=== PATIENT | female | born 1975 | race Caucasian/White ===

== ENCOUNTER 2021-05-08 08:49 | Emergency (ER) | payer MEDICAID, SELFPAY ==
[2021-05-08] VITALS (9 sets, daily range): BP systolic 93–155; BP diastolic 68–90; PULSE 58–74; RESP 12–18; TEMP 36.7; O2SAT 98–100; BMI 22.0
--- NOTE | 2021-05-08 08:53 | NURSING ---
NO OLD EKGS
--- NOTE | 2021-05-08 09:06 | EKG12_ITS ---
Test Reason : CP Blood Pressure : / mmHG Vent. Rate : 073 BPM Atrial Rate : 073 BPM P-R Int : 196 ms QRS Dur : 088 ms QT Int : 372 ms P-R-T Axes : 062 037 041 degrees QTc Int : 409 ms Normal sinus rhythm Nonspecific ST abnormality Abnormal ECG Confirmed by FRANKIE BARRETO, ARTEMIO ([id number]), greeting card editor MARIAM BLACKMAN ([id number]) on 05/11/2021 2:13:25 PM Referred By: CHAPINCITO Confirmed By:ARTEMIO DAVID MD
--- NOTE | 2021-05-08 09:16 | ED.VIS.CHEST ---
HPI History of Present Illness Chief Complaint: Chest Pain Informant: patient Narrative Narrative: Persistent mid to left side chest pain since 3 AM this morning. Patient was already awake when symptoms occurred. States pain down her left arm to her fingers. Reports dyspnea. Denies nausea or diaphoresis. Tobacco history. Adopted therefore unclear on family history. Denies hypertension, diabetes, hypercholesterolemia. States had intermittent symptoms for 2 days until 3 AM this morning. No history of stress test or heart caths. No recent travel, surgeries, or immobilizations. No history of PE or DVT. Reports pain is combination of sharp pressure aches and is 10 out of 10. No medications taken at home. History of fibromyalgia, depression and anxiety. Prior Similar Symptoms: No PFSH PFSH Home Medications buspirone 5 mg PO DAILY 05/08/21 [History Last Taken Unknown] fluoxetine 40 mg PO DAILY 05/08/21 [History Last Taken Unknown] gabapentin 300 mg PO BID 05/08/21 [History Last Taken Unknown] levothyroxine 88 mcg PO DAILY 05/08/21 [History Last Taken Unknown] Allergy/AdvReac Type Severity Reaction Status Date / Time No Known Allergies Allergy Verified 05/08/21 09:44 Social History Smoking Status: Current every day smoker tobacco type: cigarettes ROS ROS ED Constitutional Constitutional ED: Denies chills, fever(s) or sweats Eyes Eyes: Denies change in vision ENT ENT ED: Denies dysphagia or sore throat Cardiovascular Cardiovascular: Reports chest pain; Denies leg edema, palpitations or racing heartbeat Respiratory/Chest Respiratory/Chest: Reports dyspnea; Denies cough or dyspnea on exertion Gastrointestinal Gastrointestinal: Denies abdominal pain, diarrhea, nausea or vomiting Genitourinary Genitourinary ED: Denies dysuria, hematuria or urinary frequency Musculoskeletal Musculoskeletal: Denies back pain, extremity pain or neck pain Integumentary Denies rash or wounds Neurologic Neurologic: Denies headache(s), paresthesias or weakness EXAM Physical Exam Const Vital Signs: 05/08/21 09:39 05/08/21 09:47 05/08/21 10:00 Temperature 98.1 F Temperature Source Temporal Pulse Rate 74 64 66 Respiratory Rate 18 18 12 Respiratory Effort Normal Non-Labored Blood Pressure 155/89 H 119/88 H 126/90 H Blood Pressure Mean 111 98 102 Pulse Ox 99 99 98 Oxygen Delivery Method Room Air Room Air Room Air 05/08/21 10:01 05/08/21 10:06 05/08/21 10:10 Temperature Temperature Source Pulse Rate 66 74 72 Respiratory Rate Respiratory Effort Blood Pressure 126/90 H 118/82 H 107/74 Blood Pressure Mean Pulse Ox Oxygen Delivery Method 05/08/21 11:11 05/08/21 12:13 05/08/21 12:48 Temperature Temperature Source Pulse Rate 61 58 L 60 Respiratory Rate 17 17 15 Respiratory Effort Blood Pressure 93/68 112/78 113/88 H Blood Pressure Mean 76 89 Pulse Ox 98 98 100 Oxygen Delivery Method Room Air Room Air Positive well nourished and well developed General Appearance ED: well developed and NAD HEENT Reports moist mucous membranes normocephalic and atraumatic Eyes PERRL, EOMs intact bilaterally and conjunctivae normal General Eye ED: Yes normal appearance of both eyes Neck no lymphadenopathy and supple General: Negative for tenderness Chest Wall Chest: Negative for tenderness Resp normal respiratory effort and normal air movement Effort and Inspection: symmetric chest movement; Negative for respiratory distress Cardio regular rate, regular rhythm and no murmurs Peripheral Pulses: pulses 2+ throughout GI normal to inspection, nondistended, normoactive bowel sounds and non-tender Palpation: Negative for guarding or rebound tenderness present Back/Spine no CVA tenderness and no thoracic nor lumbar tenderness Extremity normal to inspection General Extremety ED: Negative for edema or tenderness General Extremity: Negative for edema Neuro oriented x3 and no sensory deficits noted Sensorium / Orientation: awake and alert Skin no rashes or lesions noted and no wounds Heart Score History: Slightly/Non-Suspicious ECG: Normal Age: >45 - <65 years Risk Factors: 1 or 2 Risk Factors Troponin: </= Normal Limit Score: 2 MDM MDM MDM Narrative Medical decision making narrative: Patient presented with chest pain aspirin nitro was given. She did have some improvement of symptoms with nitro headache improved with Tylenol. Cardiac work-up negative including 2 high-sensitivity troponins. She had no PE risk factors. Chest x-ray negative. Symptom-free on reevaluation after second troponin. Her heart score is a 2. Discussed with patient with her history and symptoms will need further work-up as an outpatient. Strict return precautions. All questions were answered. Patient is being discharged under pandemic conditions under declared global, national and state disaster activation, with limited medical resources. Patient and community understands this. Results discussed in layman's terms to the patient satisfaction. All questions answered in layman's terms. Patient understands importance of follow-up care as directed. Patient has been instructed to return to the ED immediately if new symptoms, problems, or questions occur. We mutually agree with the plan of disposition. The patient understand that they may call or return with any questions or concerns at any time. Lab Data Attestation: I reviewed the patient's lab results. Labs: Laboratory Results - last 24 hr 05/08/21 05/08/21 05/08/21 08:58 08:58 11:30 WBC 6.0 RBC 4.43 Hgb 13.4 Hct 40.8 MCV 92.1 MCH 30.2 MCHC 32.8 RDW Std Deviation 45.2 H RDW Coeff of Manuel 13.2 Plt Count 263 MPV 9.7 Immature Gran % (Auto) 0.300 Neut % (Auto) 54.6 Lymph % (Auto) 34.2 [place] % (Auto) 7.7 Eos % (Auto) 2.0 Baso % (Auto) 1.2 H Absolute Neuts (auto) 3.3 Absolute Lymphs (auto) 2.05 Nucleated RBC % 0 Sodium 137 Potassium 3.9 Chloride 102 Carbon Dioxide 30.0 Anion Gap 5 BUN 10 Creatinine 0.74 Est GFR (MDRD) Af Amer 109 Est GFR (MDRD) Non-Af 90 BUN/Creatinine Ratio 13.6 Glucose 89 Calcium 9.2 Troponin I High Sens 4 5 Radiography Chest X-Ray - ED: 1 View, Read by ED Physician and Read by Radiologist Diagnostic Testing: Radiology Impression Chest X-Ray 05/08/21 09:30 IMPRESSION: Normal x-ray examination of the chest. Electronically Signed: Rick Staton MD at 9:58 EDT Tel , Service support , EKG Initial EKG: Attestation: I personally reviewed and interpreted this EKG as follows: Comments: Sinus rate of 73, no ST or T wave changes. Discharge Plan Triage Chief Complaint: Chest Pain ED Provider: Ephraim Geronimo Dx/Rx/DC Orders Clinical Impression: Acute chest pain Instructions: ED Chest Pain, Uncertain Cause Prescriptions: No Action fluoxetine 40 mg capsule 40 mg PO DAILY RF: 0 buspirone 5 mg tablet 5 mg PO DAILY RF: 0 levothyroxine 88 mcg tablet 88 mcg PO DAILY RF: 0 gabapentin 300 mg capsule 300 mg PO BID RF: 0 Stand Alone Forms: ED Work / School Excuse Referrals: POLLY TINEO [Other] - 3-5 Days Disposition Disposition: Home, Self Care Discharge Date/Time: 05/08/21 12:56
[2021-05-08 09:18] LABS: Absolute Lymphocyte Count 2.05 X10^3/uL (0.83-4.51); Absolute Neutrophil Count 3.3 X10^3/uL (2.0-7.7); Basophil# 0.07 X10^3/uL; Basophil% 1.2 % (0-1); Eosinophil# 0.12 X10^3/uL; Hematocrit 40.8 % (37-47); Hemoglobin 13.4 g/dL (12.0-15.0); Lymphocyte # 2.05 X10^3/ul (0.83-4.51); Lymphocyte % 34.2 % (19-41); Mean Corp Hgb Conc 32.8 g/dL (32-36); Mean Corpuscular Hgb 30.2 pg (27.0-32.0); Mean Corpuscular Volume 92.1 fL (81-99); Mean Platelet Vol. 9.7 fl (6.2-12.0); Monocyte# 0.46 X10^3/uL; Monocyte% 7.7 % (0-10); NRBC Flagged by Analyzer 0 % (0-5); Neutrophil # 3.28 X10^3/uL (2.7-7.7); Neutrophil % 54.6 % (47-70); Platelet Count 263 K/mm3 (150-450); RBC Distribution Width CV 13.2 % (11.6-14.6); RBC Distribution Width SD 45.2 fl (35.1-43.9); Red Blood Count 4.43 M/mm3 (4.2-5.4)
[2021-05-08 09:26] LABS: Anion Gap 5 (5-15); BUN 10 mg/dL (7-18); BUN/Creat Ratio 13.6 RATIO (10-20); Calcium,Total 9.2 mg/dL (8.5-10.1); Chloride 102 mmol/L (98-107); Creatinine, Serum 0.74 mg/dL (0.55-1.02); EST Glomerular Filtration Rate 90 mL/min (>60); Est Glom Filt Rate - Afr Amer 109 mL/min (>60); Glucose 89 mg/dL (74-106); Potassium 3.9 mmol/L (3.5-5.1); Sodium Level 137 mmol/L (136-145); Troponin-I HS 4 pg/mL (3.0-54.0)
--- NOTE | 2021-05-08 09:30 | RAD_ITS ---
STUDY: X-RAY CHEST REASON FOR EXAM: Female, 46 years old. chest pain TECHNIQUE: Single AP portable view of the chest. COMPARISON: None. FINDINGS: The lungs are clear and expanded. There is no demonstrated pleural abnormality. Normal size heart. Normal mediastinum and jose. Normal visualized pulmonary arteries. Normal visualized aortic arch and descending thoracic aorta. Normal visualized thoracic spine. Normal visualized ribs, clavicles, and shoulders. There is no demonstrated abnormality of the visualized soft tissue structures of the upper abdomen. RAD/Chest 1 View (Portable) IMPRESSION: Normal x-ray examination of the chest. Electronically Signed: Rick Staton MD at 9:58 EDT Tel , Service support ,
[2021-05-08] MEDS: Aspirin 81 MG TAB.CHEW 324 MG PO (09:35)
[2021-05-08] MEDS: Nitroglycerin SL (ED/IMG/CATH) 0.4 MG TABLET SL ×3 (10:01→10:10)
[2021-05-08] MEDS: Acetaminophen 500 MG Tablet 1000 MG PO (10:23)
[2021-05-08 12:08] LABS: Troponin-I HS 5 pg/mL (3.0-54.0)
== END 2021-05-08 12:56 | disposition home or self-care (01) ==
PROVIDERS: Emergency Provider Emergency Medicine
DX: R07.89 Other chest pain (principal); R06.00 Dyspnea, unspecified; R51.9 Headache, unspecified; F32.9 Major depressive disorder, single episode, unspecified; F41.9 Anxiety disorder, unspecified; M79.7 Fibromyalgia; Z79.899 Other long term (current) drug therapy; F17.210 Nicotine dependence, cigarettes, uncomplicated
CPT/HCPCS: 36415; 71045; 80048; 84484; 85025; 93005; 99284; J7030; A4216

== ENCOUNTER 2022-02-25 09:19 | Emergency (ER) | payer MEDICAID, SELFPAY ==
[2022-02-25] VITALS (8 sets, daily range): BP systolic 99–142; BP diastolic 77–93; PULSE 65–92; RESP 12–16; TEMP 35.9; O2SAT 98–99; BMI 26.4
--- NOTE | 2022-02-25 09:32 | EKG12_ITS ---
Test Reason : CP Blood Pressure : / mmHG Vent. Rate : 070 BPM Atrial Rate : 070 BPM P-R Int : 180 ms QRS Dur : 088 ms QT Int : 376 ms P-R-T Axes : 063 048 046 degrees QTc Int : 406 ms Normal sinus rhythm Normal ECG Confirmed by FRANKIE BARRETO, ARTEMIO ([id number]), video effects editor MARIAM BLACKMAN ([id number]) on 03/02/2022 10:20:38 AM Referred By: KIMMY Confirmed By:ARTEMIO DAVID MD
--- NOTE | 2022-02-25 09:38 | ED.VIS.CHEST ---
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 In that amount of time for the last several days, when she is at work and under stress, she has been getting symptoms of angina. She is last night she had an episode that lasted longer, and this morning she woke up with it and it has not gone away. She woke up at 5 AM with the discomfort, she went back to bed, she woke up at 8 AM and still had the discomfort, she presents now it is about 930 and she is still having the discomfort. She is a smoker. She has never had this before. She takes medication for anxiety, depression, and fibromyalgia. Prior Similar Symptoms: No Recent Illness/Hospitalization: No CVD Risk Factors: Positive for Family History 1' </=55 (None known, she was adopted) and Smoking; Negative for Hypertension, Diabetes or Hypercholesterolemia PE Risk Factors: Negative for Recent Travel/Surgery, Recent Immobilization, Prior DVT or PE, Cancer or OCP + Smoking + >/=35 PFSH PFSH Medical History (Updated 02/25/22 @ 12:[address] Nemesio Rush MD) Anxiety Depression Fibromyalgia Hypothyroid Home Medications buspirone 5 mg tablet 5 mg PO DAILY 05/08/21 [History Last Taken Unknown] fluoxetine 40 mg capsule 40 mg PO DAILY 05/08/21 [History Last Taken Unknown] gabapentin 300 mg capsule 300 mg PO TID 05/08/21 [History Last Taken Unknown] levothyroxine 88 mcg tablet 125 mcg PO DAILY 05/08/21 [History Last Taken Unknown] Allergy/AdvReac Type Severity Reaction Status Date / Time No Known Allergies Allergy Verified 02/25/22 09:20 Family History adopted adopted Social History Smoking Status: Current every day smoker tobacco type: cigarettes ROS ROS ED Constitutional Constitutional ED: Reports sweats; Denies chills or fever(s) Eyes Eyes: Denies change in vision or diplopia ENT ENT ED: Denies rhinorrhea or sore throat Cardiovascular Cardiovascular: Reports chest pain; Denies palpitations Respiratory/Chest Respiratory/Chest: Reports dyspnea; Denies cough Gastrointestinal Gastrointestinal: Reports nausea; Denies abdominal pain, diarrhea or vomiting Genitourinary Genitourinary ED: Denies dysuria or hematuria Musculoskeletal Musculoskeletal: Denies back pain or neck pain Integumentary Denies abscess or rash Neurologic Neurologic: Denies headache(s), paresthesias or weakness Psychiatric Psychiatric: Denies anxiety or suicidal thoughts EXAM Physical Exam Const Vital Signs: 02/25/22 09:20 02/25/22 09:25 02/25/22 09:42 Temperature 96.7 F L Temperature Source Temporal Pulse Rate 92 Respiratory Rate 13 Respiratory Effort Normal Non-Labored Blood Pressure 142/89 H Blood Pressure Mean 106 Pulse Ox 99 98 Oxygen Delivery Method Room Air Room Air 02/25/22 09:49 02/25/22 10:09 02/25/22 10:32 Temperature Temperature Source Pulse Rate 81 91 65 Respiratory Rate Respiratory Effort Blood Pressure 108/93 H 105/81 H 99/77 Blood Pressure Mean Pulse Ox Oxygen Delivery Method 02/25/22 11:32 02/25/22 11:52 Temperature Temperature Source Pulse Rate 66 78 Respiratory Rate 12 16 Respiratory Effort Blood Pressure 108/83 H 99/80 Blood Pressure Mean 91 86 Pulse Ox 98 98 Oxygen Delivery Method Room Air Room Air Positive well nourished and well developed General Appearance ED: well developed and NAD HEENT Reports moist mucous membranes normocephalic and atraumatic Eyes PERRL and EOMs intact bilaterally Neck full ROM and supple Chest Wall inspection of chest normal and palpation of chest normal Resp normal respiratory effort and clear to auscultation bilaterally Cardio regular rate, regular rhythm and no murmurs Rate: Negative for bradycardia or tachycardic GI non-distended GI Narrative: Mildly tender epigastrium only, no guarding or rebound. Otherwise benign abdomen. Auscultation: normoactive bowel sounds Palpation: soft Back/Spine no CVA tenderness General Back: other FROM Extremity normal to inspection General Extremety ED: Negative for edema, pulses abnormal or tenderness General Extremity: Negative for edema or pulses abnormal Neuro oriented x3, CN's II-XII intact bilaterally and no sensory deficits noted Sensorium / Orientation: awake and alert Motor Exam: strength 5/5 throughout Psych mental status grossly normal Mood & Affect: anxious Skin no rashes or lesions noted and no wounds Skin Narrative: Not diaphoretic Heart Score History: Highly Suspicious ECG: Normal Age: >45 - <65 years Risk Factors: 1 or 2 Risk Factors Troponin: </= Normal Limit Score: 4 MDM MDM MDM Narrative Medical decision making narrative: Patient's work-up is negative with a normal EKG, initial troponin negative, and the second troponin that we did actually went down. I think this is good evidence against unstable angina here, esophageal and psychogenic etiology certainly are possible, the patient thinks it is psychogenic, I will discharge her home with close outpatient follow-up, advised to try to decrease her smoking is much as possible. Lab Data Attestation: I reviewed the patient's lab results. Labs: Laboratory Results - last 24 hr 02/25/22 02/25/22 02/25/22 09:25 09:25 09:25 WBC 5.6 RBC 4.60 Hgb 13.9 Hct 42.3 MCV 92.0 MCH 30.2 MCHC 32.9 RDW Std Deviation 46.1 H RDW Coeff of Manuel 13.5 Plt Count 236 MPV 10.1 Immature Gran % (Auto) 0.400 Neut % (Auto) 45.3 L Lymph % (Auto) 39.6 [place] % (Auto) 11.4 H Eos % (Auto) 2.1 Baso % (Auto) 1.2 H Absolute Neuts (auto) 2.6 Absolute Lymphs (auto) 2.23 Nucleated RBC % 0 APTT 28.0 Sodium 137 Potassium 4.0 Chloride 103 Carbon Dioxide 29.0 Anion Gap 5 BUN 9 Creatinine 0.86 Estim Creat Clear Calc 69.08 Est GFR (MDRD) Af Amer 90 Est GFR (MDRD) Non-Af 74 BUN/Creatinine Ratio 10.4 Glucose 104 Calcium 9.5 Troponin I High Sens 4 02/25/22 11:50 WBC RBC Hgb Hct MCV MCH MCHC RDW Std Deviation RDW Coeff of Manuel Plt Count MPV Immature Gran % (Auto) Neut % (Auto) Lymph % (Auto) [place] % (Auto) Eos % (Auto) Baso % (Auto) Absolute Neuts (auto) Absolute Lymphs (auto) Nucleated RBC % APTT Sodium Potassium Chloride Carbon Dioxide Anion Gap BUN Creatinine Estim Creat Clear Calc Est GFR (MDRD) Af Amer Est GFR (MDRD) Non-Af BUN/Creatinine Ratio Glucose Calcium Troponin I High Sens 3 Radiography Chest X-Ray - ED: 1 View, Read by ED Physician and No Acute Disease Diagnostic Testing: Clinical Impression(s) from Imaging Studies Chest X-Ray 02/25/22 09:55 IMPRESSION: Normal x-ray examination of the chest. Electronically Signed: Joaquín Bernstein MD at 10:37 EDT , Rhythm Strip Rhythm Strip: Sinus Rhythm Rate: 70 Ectopy: None EKG Initial EKG: Attestation: I personally reviewed and interpreted this EKG as follows: Interpretation: Sinus Rhythm and No Acute Injury Pattern Comments: Normal EKG. Discharge Plan Triage Chief Complaint: Chest Pain ED Provider: Nemesio Rush Dx/Rx/DC Orders Clinical Impression: Chest pain, unspecified, Encounter for smoking cessation counseling, Anxiety Instructions: ED Chest Pain, Uncertain Cause Prescriptions: No Action fluoxetine 40 mg capsule 40 mg PO DAILY buspirone 5 mg tablet 5 mg PO DAILY levothyroxine 88 mcg tablet 125 mcg PO DAILY Label Comments: TAKE 1 TABLET BY MOUTH ONCE DAILY IN THE MORNING gabapentin 300 mg capsule 300 mg PO TID Primary Care Provider: POLLY TINEO Referrals: POLLY TINEO [Other] - 3-5 Days if not improving Activity Restrictions/Additional Instructions: Decrease your smoking as much as possible. Disposition Disposition: Home, Self Care
[2022-02-25 09:43] LABS: Absolute Lymphocyte Count 2.23 X10^3/uL (0.83-4.51); Absolute Neutrophil Count 2.6 X10^3/uL (2.0-7.7); Basophil# 0.07 X10^3/uL; Basophil% 1.2 % (0-1); Eosinophil# 0.12 X10^3/uL; Eosinophils% 2.1 % (0-5); Hematocrit 42.3 % (37-47); Hemoglobin 13.9 g/dL (12.0-15.0); Lymphocyte # 2.23 X10^3/ul (0.83-4.51); Lymphocyte % 39.6 % (19-41); Mean Corp Hgb Conc 32.9 g/dL (32-36); Mean Corpuscular Hgb 30.2 pg (27.0-32.0); Mean Platelet Vol. 10.1 fl (6.2-12.0); Monocyte# 0.64 X10^3/uL; Monocyte% 11.4 % (0-10); NRBC Flagged by Analyzer 0 % (0-5); Neutrophil # 2.55 X10^3/uL (2.7-7.7); Neutrophil % 45.3 % (47-70); Platelet Count 236 K/mm3 (150-450); RBC Distribution Width CV 13.5 % (11.6-14.6); RBC Distribution Width SD 46.1 fl (35.1-43.9); White Blood Count 5.6 K/mm3 (4.4-11.0)
[2022-02-25] MEDS: Ondansetron 4 MG/2 ML Vial IV (09:47)
[2022-02-25] MEDS: Aspirin 81 MG TAB.CHEW 324 MG PO (09:47)
[2022-02-25] MEDS: Nitroglycerin SL (ED/IMG/CATH) 0.4 MG TABLET SL ×3 (09:49→10:32)
--- NOTE | 2022-02-25 09:55 | RAD_ITS ---
STUDY: X-RAY CHEST REASON FOR EXAM: Female, 46 years old. Chest pain TECHNIQUE: Single AP portable view of the chest. COMPARISON: Comparison is made with prior study dated 05/08/2021. FINDINGS: EKG electrodes are seen. The lungs are clear and expanded. There is no demonstrated pleural abnormality. Normal size heart. Normal mediastinum and jose. Normal visualized pulmonary arteries. Normal visualized aortic arch and descending thoracic aorta. Normal visualized thoracic spine. Normal visualized ribs, clavicles, and shoulders. There is no demonstrated abnormality of the visualized soft tissue structures of the upper abdomen. RAD/Chest 1 View (Portable) IMPRESSION: Normal x-ray examination of the chest. Electronically Signed: Joaquín Bernstein MD at 10:37 EDT ,
[2022-02-25 10:12] LABS: Anion Gap 5 (5-15); BUN 9 mg/dL (7-18); BUN/Creat Ratio 10.4 RATIO (10-20); Calcium,Total 9.5 mg/dL (8.5-10.1); Chloride 103 mmol/L (98-107); Creatinine, Serum 0.86 mg/dL (0.55-1.02); EST Glomerular Filtration Rate 74 mL/min (>60); Est Glom Filt Rate - Afr Amer 90 mL/min (>60); Estimated Creatinine Clearance 69.08 ml/min; Glucose 104 mg/dL (74-106); Sodium Level 137 mmol/L (136-145); Troponin-I HS (w/2H Reflex) 4 pg/mL (3.0-54.0)
[2022-02-25 11:40] LABS: Reflex Troponin-HS? (from REC) Y
[2022-02-25 12:14] LABS: Troponin-I HS 3 pg/mL (3.0-54.0)
== END 2022-02-25 12:50 | disposition home or self-care (01) ==
PROVIDERS: Emergency Provider Emergency Medicine; Visit Provider Emergency Medicine
DX: R07.89 Other chest pain (principal); F41.9 Anxiety disorder, unspecified; F32.A Depression, unspecified; E03.9 Hypothyroidism, unspecified; M79.7 Fibromyalgia; Z79.899 Other long term (current) drug therapy; F17.210 Nicotine dependence, cigarettes, uncomplicated
CPT/HCPCS: 36415; 71045; 80048; 84484; 85025; 85730; 93005; 96374; 99285; J2405

== ENCOUNTER 2022-04-02 22:33 | Inpatient (IN) | payer MEDICAID, SELFPAY ==
[2022-04-02 22:34] VITALS: BP 125/100; PULSE 86; RESP 16; TEMP 36.8; O2SAT 98; BMI 26.4
--- NOTE | 2022-04-02 22:40 | EKG12_ITS ---
Test Reason : CP Blood Pressure : / mmHG Vent. Rate : 086 BPM Atrial Rate : 086 BPM P-R Int : 172 ms QRS Dur : 094 ms QT Int : 350 ms P-R-T Axes : 066 054 065 degrees QTc Int : 418 ms Normal sinus rhythm Nonspecific ST abnormality Abnormal ECG Confirmed by KASSIDY BARRETO, SOUTH ([id number]), rewrite editor MARIAM BLACKMAN ([id number]) on 04/05/2022 1:11:35 PM Referred By: OSWALDO Confirmed By:SOUTH YI MD
[2022-04-02] MEDS: Ketorolac 30 MG/ML Syringe IV (23:06)
[2022-04-02] MEDS: Orphenadrine 60 MG/2 ML Ampul IV (23:06)
[2022-04-02 23:16] LABS: Absolute Lymphocyte Count 3.36 X10^3/uL (0.83-4.51); Absolute Neutrophil Count 3.4 X10^3/uL (2.0-7.7); Basophil# 0.09 X10^3/uL; Basophil% 1.2 % (0-1); Eosinophil# 0.13 X10^3/uL; Eosinophils% 1.7 % (0-5); Hematocrit 40.5 % (37-47); Hemoglobin 13.7 g/dL (12.0-15.0); Lymphocyte # 3.36 X10^3/ul (0.83-4.51); Mean Corp Hgb Conc 33.8 g/dL (32-36); Mean Corpuscular Hgb 30.7 pg (27.0-32.0); Mean Corpuscular Volume 90.8 fL (81-99); Mean Platelet Vol. 10.1 fl (6.2-12.0); Monocyte# 0.58 X10^3/uL; Monocyte% 7.6 % (0-10); NRBC Flagged by Analyzer 0 % (0-5); Neutrophil % 44.5 % (47-70); Platelet Count 248 K/mm3 (150-450); RBC Distribution Width CV 12.6 % (11.6-14.6); RBC Distribution Width SD 41.4 fl (35.1-43.9); Red Blood Count 4.46 M/mm3 (4.2-5.4); White Blood Count 7.6 K/mm3 (4.4-11.0)
[2022-04-02 23:19] LABS: D-Dimer Quantitative (DVT/PE) 0.51 FEU/ug/m (0.27-0.49)
--- NOTE | 2022-04-02 23:24 | RAD_ITS ---
STUDY: X-RAY CHEST REASON FOR EXAM: Female, 46 years old. chest pain TECHNIQUE: PA and lateral views of the chest. COMPARISON: 02/25/2022 FINDINGS: The lungs are clear and expanded. There is no demonstrated pleural abnormality. Normal size heart. Normal mediastinum and jose. Normal visualized pulmonary arteries. Normal visualized aortic arch and descending thoracic aorta. Normal visualized thoracic spine. Normal visualized ribs, clavicles, and shoulders. There is no demonstrated abnormality of the visualized soft tissue structures of the upper abdomen. RAD/Chest PA and Lateral IMPRESSION: Normal x-ray examination of the chest. Electronically Signed: Rick Staton MD at 23:30 EDT ,
[2022-04-02 23:27] LABS: Anion Gap 5 (5-15); BUN 9 mg/dL (7-18); BUN/Creat Ratio 10.5 RATIO (10-20); Calcium,Total 9.5 mg/dL (8.5-10.1); Chloride 105 mmol/L (98-107); Creatinine, Serum 0.86 mg/dL (0.55-1.02); EST Glomerular Filtration Rate 75 mL/min (>60); Est Glom Filt Rate - Afr Amer 91 mL/min (>60); Estimated Creatinine Clearance 69.08 ml/min; Glucose 100 mg/dL (74-106); Magnesium 1.9 mg/dL (1.6-2.6); Potassium 3.3 mmol/L (3.5-5.1); Sodium Level 139 mmol/L (136-145); Troponin-I HS 9 pg/mL (3.0-54.0)
--- NOTE | 2022-04-02 23:31 | CT_ITS ---
EXAM: CT ANGIOGRAPHY CHEST WITHOUT AND WITH INTRAVENOUS CONTRAST CLINICAL INDICATION: elevated d-dimer with chest pain TECHNIQUE: Helically acquired angiography images were obtained of the chest without and with intravenous contrast. This CT exam was performed using one or more of the following dose reduction techniques: automated exposure control, adjustment of the mA and/or kV according to patient size, and/or use of iterative reconstruction technique. This report was created using [employer] report generation technology. MIP reconstructed images were created and reviewed. CONTRAST: 100 cc of Isovue-370 IV. RADIATION DOSE: CTDIvol = 6.71 mGy, DLP = 214.67 mGy-cm. COMPARISON: None. FINDINGS: PULMONARY ARTERIES: Unremarkable. Normal in caliber. No evidence of pulmonary embolism. AORTA: Unremarkable. Normal in caliber. No evidence of dissection. GREAT VESSELS OF AORTIC ARCH: Unremarkable. Normal in caliber. No evidence of dissection. LUNGS AND PLEURAL SPACES: Mild paraseptal emphysematous changes predominantly in the upper lobes. No mass. No pleural effusion or thickening. No pneumothorax. HEART: Unremarkable. Heart size is normal. No pericardial effusion. No signs of right heart strain, ratio of right ventricle to left ventricle measures less than 1. MEDIASTINUM: Unremarkable. No mediastinal or hilar adenopathy. Esophagus is unremarkable. No hiatal hernia. THYROID: Unremarkable. No thyroid lesions. BONES/JOINTS: Unremarkable. No suspicious lytic or blastic abnormality. CT/CTA Chest W/WO Contrast IMPRESSION: 1. Mild paraseptal emphysematous changes predominantly in the upper lobes. 2. No pulmonary embolism or dissection. Electronically Signed: Prudencio Almazan MD at 0:33 EDT ,
[2022-04-02] MEDS: 0.9% Normal Saline 1,000 ML 999 ML IV (23:55)
[2022-04-02 23:56] VITALS: BP 123/76; PULSE 57; RESP 16; O2SAT 100
[2022-04-03] VITALS (13 sets, daily range): BP systolic 124–144; BP diastolic 73–96; PULSE 55–85; RESP 14–18; TEMP 36.4–36.8; O2SAT 96–100; BMI 26.4
--- NOTE | 2022-04-03 00:43 | EX.ED.DYSGE1 ---
HPI History of Present Illness Chief Complaint: Chest Pain Narrative Narrative: Patient is a 46-year-old female with past medical history of anxiety fibromyalgia hypothyroidism and smoking. She states she was at work this evening doing normal physical activity when she got mid to right sternal chest discomfort which radiated towards her right arm/neck. She states that there was no associated nausea vomiting diaphoresis or shortness of breath. She denies any previous cardiac issues but states she was concerned for a heart attack based on her constellation of symptoms and therefore EMS was called to bring her in for evaluation. Patient states she was given nitro and aspirin by EMS with no symptom improvement. She also denies any recent surgery travel or history of DVT/PE. [facility] Medical History Anxiety Depression Fibromyalgia Hypothyroid Home Medications buspirone 5 mg tablet 7.5 mg PO DAILY 05/08/21 [History Last Taken Unknown] fluoxetine 40 mg capsule 40 mg PO DAILY 05/08/21 [History Last Taken Unknown] gabapentin 300 mg capsule 300 mg PO TID 05/08/21 [History Last Taken Unknown] levothyroxine 88 mcg tablet 125 mcg PO DAILY 05/08/21 [History Last Taken Unknown] Allergy/AdvReac Type Severity Reaction Status Date / Time No Known Allergies Allergy Verified 04/02/22 22:39 Social History Smoking Status: Current every day smoker tobacco type: cigarettes ROS ROS ED Constitutional Constitutional ED: Denies chills or fever(s) ENT ENT ED: Denies sore throat Cardiovascular Cardiovascular: Reports chest pain; Denies palpitations or racing heartbeat Respiratory/Chest Respiratory/Chest: Denies cough or dyspnea Gastrointestinal Gastrointestinal: Denies abdominal pain, diarrhea, nausea or vomiting Genitourinary Genitourinary ED: Denies dysuria Musculoskeletal Musculoskeletal: Denies myalgias Integumentary Denies rash Neurologic Neurologic: Denies headache(s) Hematologic/Lymphatic Hematologic/Lymphatic: Denies easy bleeding or easy bruising EXAM Physical Exam Const Vital Signs: 04/02/22 22:34 04/02/22 22:40 04/02/22 23:56 Temperature 98.2 F Temperature Source Oral Pulse Rate 86 57 L Respiratory Rate 16 16 Respiratory Effort Normal Respiratory Pattern Normal Blood Pressure 125/100 H 123/76 H Blood Pressure Mean 108 91 Pulse Ox 98 100 Oxygen Delivery Method Room Air Room Air 04/03/22 00:38 Temperature Temperature Source Pulse Rate 62 Respiratory Rate 14 Respiratory Effort Respiratory Pattern Blood Pressure 125/79 H Blood Pressure Mean 94 Pulse Ox 98 Oxygen Delivery Method Room Air Positive well nourished and well developed General Appearance ED: well developed HEENT Reports moist mucous membranes HEENT Narrative: No signs of infection in the posterior pharynx Eyes PERRL and EOMs intact bilaterally Neck supple Neck Narrative: Patient has reproducible pain on palpation along the right sternocleidomastoid muscle that worsens with side bending and rotation. No crepitance noted Resp normal respiratory effort and clear to auscultation bilaterally Cardio regular rate and regular rhythm Rate: other Other Details: Radial pulses are plus 2 out of 4 bilaterally are equal and symmetric Carotid pulses are also equal GI normal to inspection, nondistended, normoactive bowel sounds, non-tender and non-distended GI Narrative: No voluntary guarding or rigidity. No pulsatile mass or fluid wave Auscultation: normoactive bowel sounds Palpation: soft Extremity normal to inspection Extremity Narrative: No asymmetric edema no pitting edema negative Homans' sign bilaterally Neuro oriented x3 and CN's II-XII intact bilaterally Sensorium / Orientation: alert Psych mental status grossly normal Skin no rashes or lesions noted MDM MDM MDM Narrative Medical decision making narrative: Patient presented to the ER in no acute distress with stable vitals. She reported midsternal chest pain radiating towards the right arm/neck but there was no secondary symptoms such as nausea vomiting diaphoresis or shortness of breath. She also reported no symptom improvement with nitro or aspirin. Risk factors for cardiac disease are low mainly being that she is a smoker. However with her chest pain a cardiac work-up was obtained. The patient's D-dimer was just slightly elevated and therefore CTA was obtained which revealed no obvious pulmonary embolus dissection or pneumonia. She also had reproducible pain on exam indicating this could be musculoskeletal especially with her history of fibromyalgia so she was given Toradol and Norflex. Her initial troponin was normal at 9 but the 2-hour delta has increased by approximately 40 points to a value of 48. The patient was reevaluated at this time and remains hemodynamically stable and states she has had resolution of her chest pain. Despite stable vitals and spontaneous resolution of symptoms I cannot ignore a 40 point elevation to her troponin and therefore patient will be admitted to the hospital for further cardiac work-up Lab Data Attestation: I reviewed the patient's lab results. Labs: Laboratory Results - last 24 hr 04/02/22 04/02/22 04/02/22 22:36 22:36 22:36 WBC 7.6 RBC 4.46 Hgb 13.7 Hct 40.5 MCV 90.8 MCH 30.7 MCHC 33.8 RDW Std Deviation 41.4 RDW Coeff of Manuel 12.6 Plt Count 248 MPV 10.1 Immature Gran % (Auto) 1.000 H Neut % (Auto) 44.5 L Lymph % (Auto) 44.0 H Humphreys % (Auto) 7.6 Eos % (Auto) 1.7 Baso % (Auto) 1.2 H Absolute Neuts (auto) 3.4 Absolute Lymphs (auto) 3.36 Nucleated RBC % 0 D-Dimer Quant (PE/DVT) 0.51 H* Sodium 139 Potassium 3.3 L Chloride 105 Carbon Dioxide 29.0 Anion Gap 5 BUN 9 Creatinine 0.86 Estim Creat Clear Calc 69.08 Est GFR (MDRD) Af Amer 91 Est GFR (MDRD) Non-Af 75 BUN/Creatinine Ratio 10.5 Glucose 100 Calcium 9.5 Magnesium 1.9 Troponin I High Sens 9 04/03/22 00:40 WBC RBC Hgb Hct MCV MCH MCHC RDW Std Deviation RDW Coeff of Manuel Plt Count MPV Immature Gran % (Auto) Neut % (Auto) Lymph % (Auto) Humphreys % (Auto) Eos % (Auto) Baso % (Auto) Absolute Neuts (auto) Absolute Lymphs (auto) Nucleated RBC % D-Dimer Quant (PE/DVT) Sodium Potassium Chloride Carbon Dioxide Anion Gap BUN Creatinine Estim Creat Clear Calc Est GFR (MDRD) Af Amer Est GFR (MDRD) Non-Af BUN/Creatinine Ratio Glucose Calcium Magnesium Troponin I High Sens 48 Radiography Diagnostic Testing: Clinical Impression(s) from Imaging Studies Chest X-Ray 04/02/22 23:24 IMPRESSION: Normal x-ray examination of the chest. Electronically Signed: Rick Staton MD at 23:30 EDT , Chest CTA 04/02/22 23:31 IMPRESSION: 1. Mild paraseptal emphysematous changes predominantly in the upper lobes. 2. No pulmonary embolism or dissection. Electronically Signed: Prudencio Almazan MD at 0:33 EDT , 2 view chest x-ray as interpreted by the emergency medicine physician reveals emphysematous changes without acute infiltrate pneumothorax or pleural effusion Discharge Plan Triage Chief Complaint: Chest Pain ED Provider: Maxime Man Dx/Rx/DC Orders Clinical Impression: Nonspecific chest pain, Elevated troponin, Tobacco abuse Prescriptions: No Action fluoxetine 40 mg capsule 40 mg PO DAILY buspirone 5 mg tablet 7.5 mg PO DAILY levothyroxine 88 mcg tablet 125 mcg PO DAILY Label Comments: TAKE 1 TABLET BY MOUTH ONCE DAILY IN THE MORNING gabapentin 300 mg capsule 300 mg PO TID Primary Care Provider: OPLLY TINEO Referrals: POLLY TINEO [Other] Disposition Disposition: Acute Care Hospital [facility]
[2022-04-03 01:04] LABS: Troponin-I HS 48 pg/mL (3.0-54.0)
--- NOTE | 2022-04-03 01:22 | HP.PCM.HOS_ITS ---
[facility] - General General Date of Admission: 04/03/22 Date of Service: 04/03/22 Chief Complaint: Chest pain- 1 day HPI Narrative SUSHIL LIU, is a 46 F who presents with chest pain. Patient has past medical history of hypothyroidism, anxiety/depression/fibromyalgia who was at work when she experienced substernal pressure-like chest pain that radiated across her chest to the right side to the neck and the jaw. This persisted until the EMS showed up and she was given aspirin and nitro. It was associated with some diaphoresis but denied dizziness or palpitations or shortness of breath. She has never had this kind of pain before. At the time of being seen, she denied any chest pressure but admits to some numbness across the right side of her chest. She is a smoker and smokes less than 1 pack a day. Vitals in ED showed blood pressure 125/100, heart rate 86, respiratory 16, temperature 98.2 F, SPO2 98% on room air. CBCD unremarkable. D-dimer 0.51, BMP remarkable for potassium 3.3, magnesium 1.9. Troponin was 9, and later on 48 Admitting chest x-ray was unremarkable. Mild paraseptal emphysematous changes predominantly in the upper lobes. [facility] Medical History Anxiety Depression Fibromyalgia Hypothyroid Home Medications buspirone 5 mg tablet 7.5 mg PO DAILY 05/08/21 [History Last Taken Unknown] fluoxetine 40 mg capsule 40 mg PO DAILY 05/08/21 [History Last Taken Unknown] gabapentin 300 mg capsule 300 mg PO TID 05/08/21 [History Last Taken Unknown] levothyroxine 88 mcg tablet 125 mcg PO DAILY 05/08/21 [History Last Taken Unknown] Allergy/AdvReac Type Severity Reaction Status Date / Time No Known Allergies Allergy Verified 04/02/22 22:39 Family History adopted adopted Social History (Updated 04/03/22 @ 01:[address] Barbie Stewart MD) household members: family Smoking Status: Current every day smoker tobacco type: cigarettes alcohol intake: never substance use type: does not use ROS ROS Narrative Constitutional: Denies: Anorexia, Chills, Fever, Night Sweats, Weight Change Eyes: Denies: Blurred vision, Cataracts, Conjunctivae Inflammation, Pain, Redness, Vision Change HEENT: Denies: Difficulty Hearing, Difficulty Swallowing, Head Aches, Hearing Changes, Sinus Congestion, Sinus Drainage Cardiovascular: See HPI Respiratory: Denies: Cough, Shortness of breath at rest, Sputum production Gastrointestinal: Denies: Abdominal Pain, Nausea, Vomiting Genitourinary: Denies: Dysuria Musculoskeletal: Denies: Joint Pain, Joint stiffness, Joint swelling, Joint Tenderness Skin: Denies: Rash, Wounds Neurological: Denies: Numbness, Tingling, Focal weakness Vital Signs Vital Signs Vital Signs: 04/02/22 22:34 04/02/22 22:40 04/02/22 23:56 Temperature 98.2 F Temperature Source Oral Pulse Rate 86 57 L Respiratory Rate 16 16 Respiratory Effort Normal Respiratory Pattern Normal Blood Pressure 125/100 H 123/76 H Blood Pressure Mean 108 91 Pulse Ox 98 100 Oxygen Delivery Method Room Air Room Air 04/03/22 00:38 Temperature Temperature Source Pulse Rate 62 Respiratory Rate 14 Respiratory Effort Respiratory Pattern Blood Pressure 125/79 H Blood Pressure Mean 94 Pulse Ox 98 Oxygen Delivery Method Room Air Weight Weight: 69.8 kg Body Mass Index (BMI) 26.4 Physical Exam Narrative Physical exam: General: Alert, Oriented x3, Cooperative, No apparent distress HEENT: Atraumatic Oral: Moist Mucosa Neck: Supple Lungs: Diminished to auscultation, scattered wheezes Cardiovascular: HS I+II, regular, no murmurs Abdomen: Bowel Sounds Present, Soft, Non Tender Extremities: No edema Skin: No rashes, No breakdown Neurological: Grossly intact Psych/Mental Status: Appropriate Results Lab / Micro Data Result Diagrams: 04/02/22 22:36 04/02/22 22:36 Labs: Laboratory Results - last 24 hr 04/02/22 22:36: D-Dimer Quant (PE/DVT) 0.51 H* 04/02/22 22:36: Sodium 139, Potassium 3.3 L, Chloride 105, Carbon Dioxide 29.0, Anion Gap 5, BUN 9, Creatinine 0.86, Estim Creat Clear Calc 69.08, Est GFR (MDRD) Af Amer 91, Est GFR (MDRD) Non-Af 75, BUN/Creatinine Ratio 10.5, Glucose 100, Calcium 9.5, Magnesium 1.9, Troponin I High Sens 9 04/02/22 22:36: WBC 7.6, RBC 4.46, Hgb 13.7, Hct 40.5, MCV 90.8, MCH 30.7, MCHC 33.8, RDW Std Deviation 41.4, RDW Coeff of Manuel 12.6, Plt Count 248, MPV 10.1, Immature Gran % (Auto) 1.000 H, Neut % (Auto) 44.5 L, Lymph % (Auto) 44.0 H, [place] % (Auto) 7.6, Eos % (Auto) 1.7, Baso % (Auto) 1.2 H, Absolute Neuts (auto) 3.4, Absolute Lymphs (auto) 3.36, Nucleated RBC % 0 04/03/22 00:40: Troponin I High Sens 48 Radiology Impression Chest X-Ray 04/02/22 23:24 IMPRESSION: Normal x-ray examination of the chest. Electronically Signed: Rick Staton MD at 23:30 EDT , Chest CTA 04/02/22 23:31 IMPRESSION: 1. Mild paraseptal emphysematous changes predominantly in the upper lobes. 2. No pulmonary embolism or dissection. Electronically Signed: Prudencio Almazan MD at 0:33 EDT , Assessment & Plan Assessment/Plan (1) Acute chest pain: (2) Hypokalemia: (3) Hypomagnesemia: PLAN: Plan 1. Acute chest pain, atypical, in a chronic smoker EKG shows normal sinus rhythm, no acute ST changes Initial troponin was 9, second troponin 48 Admit to PCU, monitor on telemetry, trend troponins, nuclear stress test 2. Hypokalemia/hypomagnesemia, replaced, recheck in a.m. 3. Nicotine dependence, on replacement, strongly advised to quit 4. Hypothyroidism, continue Synthroid 5. Anxiety/depression/fibromyalgia, continue on BuSpar, fluoxetine, gabapentin 6. DVT prophylaxis?Lovenox subcu Charges/Coding Visit Charges OBSV E&M: 52594 Initial observation care L3
[2022-04-03 01:40] LABS: Partial Thromboplast Time 27.8 Seconds (24.1-36.2)
[2022-04-03] MEDS: Potassium Chloride Oral Tablet 20 MEQ 40 MEQ PO (02:25)
[2022-04-03] MEDS: 0.9% Saline Lock 10 ML Syringe IV (02:26)
[2022-04-03 04:53] LABS: Absolute Lymphocyte Count 3.01 X10^3/uL (0.83-4.51); Absolute Neutrophil Count 3.3 X10^3/uL (2.0-7.7); Basophil# 0.07 X10^3/uL; Eosinophil# 0.17 X10^3/uL; Eosinophils% 2.4 % (0-5); Hematocrit 38.3 % (37-47); Hemoglobin 12.5 g/dL (12.0-15.0); Lymphocyte # 3.01 X10^3/ul (0.83-4.51); Lymphocyte % 42.6 % (19-41); Mean Corp Hgb Conc 32.6 g/dL (32-36); Mean Corpuscular Hgb 30.1 pg (27.0-32.0); Mean Corpuscular Volume 92.3 fL (81-99); Monocyte# 0.47 X10^3/uL; Monocyte% 6.7 % (0-10); NRBC Flagged by Analyzer 0 % (0-5); Neutrophil # 3.31 X10^3/uL (2.7-7.7); Neutrophil % 46.9 % (47-70); Platelet Count 226 K/mm3 (150-450); RBC Distribution Width CV 12.8 % (11.6-14.6); RBC Distribution Width SD 43.4 fl (35.1-43.9); Red Blood Count 4.15 M/mm3 (4.2-5.4); White Blood Count 7.1 K/mm3 (4.4-11.0)
[2022-04-03 05:22] LABS: Troponin-I HS 73 pg/mL (3.0-54.0)
[2022-04-03 05:25] LABS: ALB/GLOB Ratio 0.8 RATIO (0.9-2.4); AST(SGOT) 11 U/L (15-37); Alanine Aminotransfer ALT/SGPT 13 U/L (13-56); Albumin, Serum 3.1 g/dL (3.2-5.0); Alkaline Phosphatase 76 U/L (45-117); Anion Gap 3 (5-15); BUN 9 mg/dL (7-18); BUN/Creat Ratio 11.3 RATIO (10-20); Calcium,Total 8.5 mg/dL (8.5-10.1); Chloride 107 mmol/L (98-107); EST Glomerular Filtration Rate 81 mL/min (>60); Est Glom Filt Rate - Afr Amer 98 mL/min (>60); Estimated Creatinine Clearance 74.26 ml/min; Globulin 3.9 g/dL (2.2-4.2); Glucose 99 mg/dL (74-106); Sodium Level 138 mmol/L (136-145)
--- NOTE | 2022-04-03 05:55 | EKG12_ITS ---
Test Reason : CP ADMIT Blood Pressure : / mmHG Vent. Rate : 055 BPM Atrial Rate : 055 BPM P-R Int : 184 ms QRS Dur : 092 ms QT Int : 440 ms P-R-T Axes : 077 056 054 degrees QTc Int : 420 ms Sinus bradycardia Otherwise normal ECG When compared with ECG of 25-FEB-2022 09:49, No significant change was found Confirmed by KASSIDY BARRETO, SOUTH ([id number]), senior editor JANINA OQUENDO ([id number]) on 04/06/2022 9:49:06 AM Referred By: JERSON Confirmed By:SOUTH YI MD
[2022-04-03] MEDS: Levothyroxine 125 MCG Tablet PO (06:14)
--- NOTE | 2022-04-03 11:16 | STRESSREP ---
Stress Test Report Lexiscan myocardial perfusion stress test. Indication; 46-year-old patient who presented with symptoms of chest pain and has mild elevation of high sensitive troponin I to 73 Patient had a history of smoking She was evaluated by Lexiscan sestamibi myocardial fusion study to assess for CAD. Stress protocol: Resting EKG demonstrates. Normal sinus rhythm. 0.4 mg of regadenoson was infused per usual protocol followed by rapid intravenous saline flush injection continuous EKG monitoring was performed. The maximum heart rate attained was 104 bpm which was 60% of maximum predicted heart . Stress EKG showed[, no significant change from the resting EKG, with maximum heart rate of 104 bpm. Arrhythmia: No arrhythmia demonstrated Symptoms: Patient had no symptoms of chest pain Blood pressure at rest: 118/84 mmHg blood pressure at the end of stress: 128/80 mmHg Myocardial perfusion protocol. [12 mCi ]of Technetium 99m Sestamibi was injected at rest. [ 0.4 mg ]of Regadenoson was infused per usual protocol peak infusion 36 mCi ]of Technetium 99m sestamibi was injected. Stress images were obtained stress and rest images were reconstructed and compared in the short axis vertical and horizontal long axis. Gated images were also obtained Perfusion SPECT analysis: Review of the images demonstrate reduced uptake of the tracer in the anterior myocardium consistent with small to moderate size anterior reversible ischemia Gated SPECT analysis: The gated ejection fraction is 60%, normal LV wall motion and LV systolic function Conclusion: Abnormal Lexiscan sestamibi, anterior small to moderate size Reversible myocardial ischemia Normal LV systolic function Venu Ko MD,FACC,[facility]
[2022-04-03] MEDS: busPIRone 5 MG Tablet 7.5 MG PO ×2 (12:29→22:17)
[2022-04-03] MEDS: Fluoxetine HCl 40 MG CAPSULE PO (12:29)
[2022-04-03] MEDS: Enoxaparin 40 MG/0.4 ML Syringe SC (13:10)
--- NOTE | 2022-04-03 14:46 | CON.PCM.CA_ITS ---
Assessment & Plan Assessment/Plan (1) Tobacco abuse: (2) Hypomagnesemia: (3) Hypokalemia: (4) Elevated troponin: (5) Non-ST elevation DE (NSTEMI): PLAN: 46-year-old female who presented to the hospital complaining of symptoms of chest pain she described as a heaviness and pressure in the chest which has been ongoing for some time symptoms got worse and she came to the ER here at [facility] where she had an EKG and a series of cardiac enzymes which showed elevated high sensitive troponin to 73 Patient had history of tobacco abuse Cardiac care plan; 1. I reviewed the current treatment with the nursing staff and will continue on Lovenox, aspirin, added high-dose statin. 2. Patient has no active symptoms of chest pain however she had change in the EKG and further evaluation by nuclear stress test is abnormal With evidence of anterior small to moderate size reversible ischemia. CTA chest results noted patient has no pulmonary embolism or aortic dissection There is mild paraseptal emphysematous changes predominantly in the upper lobes. Patient had history of tobacco abuse 3. I also recommended to evaluate with cardiac catheterization on Tuesday. 4. Patient advised cessation of smoking HPI Consult Data Date of Consult: 08/13/22 HPI Narrative Reason for Consultation: Non-ST elevation DE HPI Narrative: SUSHIL LIU, is a 46 F who presents with symptoms of chest pain She was evaluated initially by CTA which showed no evidence of pulm embolism or aortic dissection Subsequently she had elevated cardiac biomarkers. With evidence of wall motion abnormality on the anterior wall and subsequently she underwent further evaluation and by cardiac catheterization and she was managed as non-ST elevatio n DE. She does not have any other associated symptoms in particular no symptoms of dizziness no shortness of breath are symptoms mainly typical of angina with chest pain. [facility] Medical History (Updated 04/13/22 @ 00:01 by Background Satish) Anxiety COPD (chronic obstructive pulmonary disease) Depression Emphysema lung Fibromyalgia Hypothyroid Tobacco abuse Home Medications buspirone 5 mg tablet 7.5 mg PO TID Mood 05/08/21 [History Last Taken Unknown] fluoxetine 40 mg capsule 40 mg PO DAILY 05/08/21 [History Last Taken Unknown] gabapentin 300 mg capsule 300 mg PO TID 05/08/21 [History Last Taken Unknown] levothyroxine 88 mcg tablet 125 mcg PO DAILY 05/08/21 [History Last Taken Unknown] aspirin 81 mg capsule 81 mg PO DAILY #30 caps 04/05/22 [Rx Last Taken Unknown] Allergy/AdvReac Type Severity Reaction Status Date / Time No Known Allergies Allergy Verified 04/02/22 22:39 Family History adopted Social History (Updated 04/03/22 @ 01:[address] Barbie Stewart MD) household members: family Smoking Status: Current every day smoker tobacco type: cigarettes alcohol intake: never substance use type: does not use Physical Exam Narrative Patient seen and evaluated today at bedside along with the nursing staff She is alert orientated x3 She has no active symptoms of chest pain Review of the monitoring engineer showed underlying normal sinus rhythm Cardiovascular exam; S1-S2 normal, no systolic or diastolic murmur. Chest examination; clear to auscultation bilateral. Examination lower extremities; no lower extremity edema noted. Risk Stratification Risk Stratification Applicable: Yes Age >/= 65: No >/= 3 CAD Risk Factors (HTN, HLD, DM, family hx of CAD, or current smoker): Yes Aspirin Use in the Past 7 Days: Yes Severe Angina (>/= episodes in 24 hours): Yes EKG ST Changes >/= 0.5mm: Yes Positive Cardiac Marker: Yes ZAIN Risk Stratification Score: 5 ZAIN % Risk: 25% Risk Objective Data Vital Signs: Vital Signs Temp Pulse Resp BP Pulse Ox O2 Del Method 97.7 F L 61 14 134/81 H 96 Room Air 04/03/22 09:13 04/03/22 13:14 04/03/22 09:13 04/03/22 09:13 04/03/22 09:13 04/03/22 09:13 Oxygen Delivery Method Room Air Weight: 154 lb 5.177 oz Body Mass Index (BMI) 26.4 Intake & Output: Intake and Output for Last 24 Hours 04/01/22 04/02/22 04/03/22 23:59 23:59 23:59 Intake Total 1102 / 1102 Balance 1102 / 1102 Lab / Micro Data Result Diagrams: 04/03/22 04:40 04/03/22 04:40 Labs: Laboratory Results - last 24 hr 04/02/22 22:36: D-Dimer Quant (PE/DVT) 0.51 H* 04/02/22 22:36: Sodium 139, Potassium 3.3 L, Chloride 105, Carbon Dioxide 29.0, Anion Gap 5, BUN 9, Creatinine 0.86, Estim Creat Clear Calc 69.08, Est GFR (MDRD) Af Amer 91, Est GFR (MDRD) Non-Af 75, BUN/Creatinine Ratio 10.5, Glucose 100, Calcium 9.5, Magnesium 1.9, Troponin I High Sens 9 04/02/22 22:36: WBC 7.6, RBC 4.46, Hgb 13.7, Hct 40.5, MCV 90.8, MCH 30.7, MCHC 33.8, RDW Std Deviation 41.4, RDW Coeff of Manuel 12.6, Plt Count 248, MPV 10.1, Immature Gran % (Auto) 1.000 H, Neut % (Auto) 44.5 L, Lymph % (Auto) 44.0 H, Thomas % (Auto) 7.6, Eos % (Auto) 1.7, Baso % (Auto) 1.2 H, Absolute Neuts (auto) 3.4, Absolute Lymphs (auto) 3.36, Nucleated RBC % 0 04/02/22 22:36: PT 13.0, INR 1.0, APTT 27.8 04/03/22 00:40: Troponin I High Sens 48 04/03/22 04:40: WBC 7.1, RBC 4.15 L, Hgb 12.5, Hct 38.3, MCV 92.3, MCH 30.1, MCHC 32.6, RDW Std Deviation 43.4, RDW Coeff of Manuel 12.8, Plt Count 226, MPV 10.0, Immature Gran % (Auto) 0.400, Neut % (Auto) 46.9 L, Lymph % (Auto) 42.6 H, Thomas % (Auto) 6.7, Eos % (Auto) 2.4, Baso % (Auto) 1.0, Absolute Neuts (auto) 3.3, Absolute Lymphs (auto) 3.01, Nucleated RBC % 0 04/03/22 04:40: Sodium 138, Potassium 4.0, Chloride 107, Carbon Dioxide 28.0, Anion Gap 3 L, BUN 9, Creatinine 0.80, Estim Creat Clear Calc 74.26, Est GFR (MDRD) Af Amer 98, Est GFR (MDRD) Non-Af 81, BUN/Creatinine Ratio 11.3, Glucose 99, Calcium 8.5, Total Bilirubin 0.30, AST 11 L, ALT 13, Alkaline Phosphatase 76, Total Protein 7.0, Albumin 3.1 L, Globulin 3.9, Albumin/Globulin Ratio 0.8 L 04/03/22 04:40: Troponin I High Sens 73 H Cardiology Labs/Tests 04/02/22 22:36: D-Dimer Quant (PE/DVT) 0.51 H* 04/02/22 22:36: Sodium 139, Potassium 3.3 L, Chloride 105, Carbon Dioxide 29.0, Anion Gap 5, BUN 9, Creatinine 0.86, Est GFR (MDRD) Af Amer 91, Est GFR (MDRD) Non-Af 75, BUN/Creatinine Ratio 10.5, Glucose 100, Calcium 9.5, Magnesium 1.9 04/02/22 22:36: WBC 7.6, RBC 4.46, Hgb 13.7, Hct 40.5, MCV 90.8, MCH 30.7, MCHC 33.8, Plt Count 248, MPV 10.1, Immature Gran % (Auto) 1.000 H, Neut % (Auto) 44.5 L, Lymph % (Auto) 44.0 H, Thomas % (Auto) 7.6, Eos % (Auto) 1.7, Baso % (Auto) 1.2 H, Absolute Neuts (auto) 3.4, Nucleated RBC % 0 04/02/22 22:36: PT 13.0, INR 1.0, APTT 27.8 04/03/22 04:40: WBC 7.1, RBC 4.15 L, Hgb 12.5, Hct 38.3, MCV 92.3, MCH 30.1, MCHC 32.6, Plt Count 226, MPV 10.0, Immature Gran % (Auto) 0.400, Neut % (Auto) 46.9 L, Lymph % (Auto) 42.6 H, Thomas % (Auto) 6.7, Eos % (Auto) 2.4, Baso % (Auto) 1.0, Absolute Neuts (auto) 3.3, Nucleated RBC % 0 04/03/22 04:40: Sodium 138, Potassium 4.0, Chloride 107, Carbon Dioxide 28.0, Anion Gap 3 L, BUN 9, Creatinine 0.80, Est GFR (MDRD) Af Amer 98, Est GFR (MDRD) Non-Af 81, BUN/Creatinine Ratio 11.3, Glucose 99, Calcium 8.5, Total Bilirubin 0.30 Rhythm: Normal sinus rhythm EKG: T wave inversion noted in V1 V2 Radiography Diagnostic Testing: Radiology Impression Chest X-Ray 04/02/22 23:24 IMPRESSION: Normal x-ray examination of the chest. Electronically Signed: Rick Staton MD at 23:30 EDT , Chest CTA 04/02/22 23:31 IMPRESSION: 1. Mild paraseptal emphysematous changes predominantly in the upper lobes. 2. No pulmonary embolism or dissection. Electronically Signed: Prudencio Almazan MD at 0:33 EDT ,
[2022-04-03] MEDS: Gabapentin 300 MG Capsule PO ×2 (18:06→20:25)
[2022-04-03] MEDS: Atorvastatin Calcium 80 MG Tablet PO (20:19)
[2022-04-04] VITALS (9 sets, daily range): BP systolic 124–135; BP diastolic 80–99; PULSE 55–82; RESP 16–18; TEMP 36.2–37.1; O2SAT 98–99; BMI 26.4
[2022-04-04] MEDS: Gabapentin 300 MG Capsule PO ×3 (06:05→21:15)
[2022-04-04] MEDS: Levothyroxine 125 MCG Tablet PO (06:05)
--- NOTE | 2022-04-04 07:56 | PCM.PN.HOSP ---
Subjective Subjective No further chest pain. Complain of some right neck pain. Objective Data Objective Data Vital Signs: Vital Signs Temp Pulse Resp BP Pulse Ox O2 Del Method 36.2 C L 55 L 18 124/80 H 98 Room Air 04/04/22 03:20 04/04/22 03:20 04/04/22 03:20 04/04/22 03:20 04/04/22 03:20 04/04/22 03:20 Oxygen Delivery Method Room Air Weight: 69.3 kg Body Mass Index (BMI) 26.4 Intake & Output: Intake and Output for Last 24 Hours 04/02/22 04/03/22 04/04/22 23:59 23:59 23:59 Intake Total 1102 / 1582 480 / 480 Balance 1102 / 1582 480 / 480 Lab / Micro Data Result Diagrams: 04/03/22 04:40 04/03/22 04:40 Physical Exam Const alert and no apparent distress Resp normal respiratory effort, no retractions, no use of accessory muscles and clear to auscultation bilaterally Cardio regular rate, regular rhythm, S1 normal heart sound and S2 normal heart sound GI normal to inspection, nondistended, normoactive bowel sounds and soft to palpation Psych affect normal Assessment & Plan Assessment/Plan (1) Non-ST elevation CO (NSTEMI): PLAN: Troponins slightly elevated at 73 but did trend upwards. Given the patient's risk factors and extensive smoking history, and abnormal stress test very concerning for a type I event though technically mild. Plan is for cardiac catheterization on the eighth Continue with aspirin and atorvastatin (2) Emphysema lung: QUALIFIERS: Emphysema type: unspecified Qualified Code(s): J43.9 - Emphysema, unspecified PLAN: Noted emphysematous changes on the CT angiogram that she had. Patient is an active smoker. Patient has been advised to quit smoking and advised if she continues to smoke that the emphysema will continue to get worse and is not reversible. Recommend pulmonary follow-up for pulmonary function test PLAN: Plan VTE prophylaxis with enoxaparin Disposition: Pending cardiac catheterization. If that is normal then anticipate the patient be able to be discharged if abnormal and requiring stent and she would need to stay another 24 hours after that. Charges/Coding Visit Charges Inpatient E&M: 67126 Subs Hosp L2
[2022-04-04] MEDS: busPIRone 5 MG Tablet 7.5 MG PO ×3 (08:49→21:16)
[2022-04-04] MEDS: Aspirin E.C. 325 MG Tablet PO (08:49)
[2022-04-04] MEDS: Fluoxetine HCl 40 MG CAPSULE PO (08:49)
[2022-04-04] MEDS: Enoxaparin 40 MG/0.4 ML Syringe SC (08:49)
[2022-04-04] MEDS: Acetaminophen 325 MG Tablet 650 MG PO (08:50)
--- NOTE | 2022-04-04 13:49 | PCM.PN.CARD ---
Subjective Subjective Seen and evaluated today at bedside No further episode of chest pain She complained of some discomfort in the right neck site. Objective Data Vital Signs: Vital Signs Temp Pulse Resp BP Pulse Ox O2 Del Method 97.9 F 69 16 135/80 H 99 Room Air 04/04/22 08:45 04/04/22 08:45 04/04/22 08:45 04/04/22 08:45 04/04/22 08:45 04/04/22 09:03 Oxygen Delivery Method Room Air Weight: 152 lb 12.485 oz Body Mass Index (BMI) 26.4 Intake & Output: Intake and Output for Last 24 Hours 04/02/22 04/03/22 04/04/22 23:59 23:59 23:59 Intake Total 1102 / 1582 980 / 980 Balance 1102 / 1582 980 / 980 Lab / Micro Data Result Diagrams: 04/03/22 04:40 04/03/22 04:40 Cardiology Labs/Tests Rhythm: EKG: ECHO: Stress Test: Cardiac Cath: PCI: CT Surgery: Holter monitor: EPS: PPM: CXR: Chest CT Scan: Physical Exam Narrative Cardiac telemetry normal sinus rhythm Patient alert orientated x3 Cardiovascular exam S1-S2 regular Chest exam is clear to auscultation bilateral Assessment & Plan Assessment/Plan (1) Tobacco abuse: (2) Elevated troponin: (3) Emphysema lung: QUALIFIERS: Emphysema type: unspecified Qualified Code(s): J43.9 - Emphysema, unspecified (4) COPD (chronic obstructive pulmonary disease): (5) Non-ST elevation FL (NSTEMI): PLAN: 46-year-old patient who presented with symptoms of chest pain, has mild elevation of troponin I around 73 Patient with risk factors she had a history of smoking Her symptoms of chest pain improving on the current treatment. Patient has new diagnosis of emphysema with emphysematous change noted on the CT/patient is active smoker Cardiac care plan; 1. Based on her clinical presentation, non-ST elevation FL Patient scheduled for cardiac catheterization tomorrow 2. We will continue current treatment .
[2022-04-04] MEDS: Atorvastatin Calcium 80 MG Tablet PO (21:16)
[2022-04-04] MEDS: 0.9% Saline Lock 10 ML Syringe IV (21:16)
[2022-04-05] VITALS (13 sets, daily range): BP systolic 118–150; BP diastolic 85–101; PULSE 50–79; RESP 18–20; TEMP 36.2–36.6; O2SAT 95–98
--- NOTE | 2022-04-05 05:36 | EKG12_ITS ---
Test Reason : AM EKG Blood Pressure : / mmHG Vent. Rate : 053 BPM Atrial Rate : 053 BPM P-R Int : 172 ms QRS Dur : 090 ms QT Int : 432 ms P-R-T Axes : 063 051 050 degrees QTc Int : 405 ms Sinus bradycardia Otherwise normal ECG When compared with ECG of 03-APR-2022 02:35, No significant change was found Confirmed by HUGH BARREOT, SIRIA ([id number]), offline editor MARIAM BLACKMAN ([id number]) on 04/09/2022 2:38:31 PM Referred By: Confirmed By:BRIA REESE MD
[2022-04-05] MEDS: Levothyroxine 125 MCG Tablet PO (05:53)
[2022-04-05] MEDS: busPIRone 5 MG Tablet 7.5 MG PO ×2 (05:53→13:38)
[2022-04-05] MEDS: Aspirin E.C. 325 MG Tablet PO (05:53)
[2022-04-05] MEDS: Gabapentin 300 MG Capsule PO ×2 (05:56→13:37)
[2022-04-05 07:54] LABS: Internal QC Validated? YES +Cl - CLEAR BKGD; Pregnancy, Urine Negative Negative
--- NOTE | 2022-04-05 08:32 | PCM.PN.CARD ---
Subjective Subjective Patient seen and evaluated. Appears to be doing well. Underwent cardiac catheterization this morning. Objective Data Vital Signs: Vital Signs Temp Pulse Resp BP Pulse Ox O2 Del Method 97.7 F L 60 18 137/95 H 98 Room Air 04/05/22 05:50 04/05/22 07:02 04/05/22 05:50 04/05/22 05:50 04/05/22 05:50 04/05/22 05:50 Oxygen Delivery Method Room Air Weight: 153 lb 7.068 oz Body Mass Index (BMI) 26.4 Intake & Output: Intake and Output for Last 24 Hours 04/03/22 04/04/22 04/05/22 23:59 23:59 23:59 Intake Total 1102 / 1582 1480 / 1880 400 / 400 Balance 1102 / 1582 1480 / 1880 400 / 400 Lab / Micro Data Result Diagrams: 04/03/22 04:40 04/03/22 04:40 Labs: Laboratory Results - last 24 hr 04/05/22 07:46: Urine Test Negative Cardiology Labs/Tests Rhythm: EKG: ECHO: Stress Test: Cardiac Cath: PCI: CT Surgery: Holter monitor: EPS: PPM: CXR: Chest CT Scan: Physical Exam Const alert, oriented x3 and no apparent distress General Appearance: cooperative HEENT hearing grossly normal bilaterally Head and Scalp: atraumatic Eyes EOMs intact bilaterally Neck General: normal visual inspection Chest inspection of chest normal and palpation of chest normal Resp normal respiratory effort Auscultation: clear to auscultation bilaterally Cardio regular rate, regular rhythm, S1 normal heart sound and S2 normal heart sound Jugular Venous Distention: JVD GI normal to inspection, nondistended, normoactive bowel sounds Extremity normal capillary refill and no pedal edema Peripheral Pulses: Yes pulses 2+ throughout and femoral pulses present Skin no rashes or lesions noted Neuro oriented x3 and CN's II-XII intact bilaterally Psych Appearance: grossly normal and appropriate Assessment & Plan Assessment/Plan (1) Nonspecific chest pain: PLAN: Patient underwent cardiac catheterization for nonspecific chest discomfort and an abnormal stress test. The cardiac catheterization demonstrated nonobstructive coronary disease and preserved left ventricular systolic function. At this juncture does not appear that it is due to significant coronary artery disease. Will recommend discharge on outpatient follow-up with primary physician and risk factor modification.
--- NOTE | 2022-04-05 08:39 | CL.D_ITS ---
Patient Name: SUSHIL LIU Study Date: 04/05/2022 Performing: Junior Cho MD Ht: 64 inches 163 cm : 1975 Wt: 154.5 lbs 70 kg Age: 46 Gender: female BSA: 1.76 PROCEDURE(S) PERFORMED [id number])[facility] CLINICAL PROFILE AND INDICATIONS Indications: Suspected CAD Heart Failure: None Stress/Imaging Date: 04/04/2022tress Test with SPECT MPI: Positive Low Risk CAD Presentations: Unstable angina. CONCLUSIONS Non obstructive coronary arteries Normal LV size, wall motion,and systolic function RECOMMENDATIONS Medical therapy DESCRIPTION OF PROCEDURE The patient arrived to the procedure lab. The risks and benefits of the procedure as well as a full d escription of our services here and current unavailability of surgical backup were fully explained to the patient and/or their significant other prior to the catheterization. The Timeout was completed, verifying the correct patient and procedure. The patient's procedural site was prepped and draped in the usual fashion. Local anesthetic was given subcutaneously to right radial region with Lidocaine 2% . Using a modified Seldinger technique, arterial access was obtained via the right radial artery, a 6 Fr sheath was inserted. Left Coronary Artery selective angiography was performed in multiple views u sing a 5 Fr. 4.0 Pickford catheter. Right Coronary Artery selective angiography was then performed in mu ltiple views using a 5 Fr. 4.0 Pickford catheter. Left Ventriculography was performed in ANDUJAR projection using a 5 Fr. Pigtail catheter. LV to AO pullback pressures were then recorded.The arterial sheath was pulled and a TR Band was applied for hemostasis CORONARY ANGIOGRAPHY DOMINANCE: Right Dominant LEFT HEART ASSESSMENT Left Ventricular Ejection Fraction: by LV Gram 55 % Normal LV wall motion Normal Left Ventricular systolic function LEFT MAIN: Angiographically normal LEFT ANTERIOR DESCENDING ARTERY: Mild luminal irregularities less than 30% CIRCUMFLEX ARTERY: Mild luminal irregularities RIGHT CORONARY ARTERY: Mild luminal irregularities COMPLICATIONS No Complications PROCEDURE MEDICATIONS Fentanyl 50 mcg IV Versed 1 mg IV Versed 1 mg IV Versed 1 mg IV Fentanyl 25 mcg IV Oxygen: 2 L/min via nasal cannula Heparin given IA 04/05/2022 08:21:05 Verapamil 2.5mg, Ntg 100mcgs, 3000 units of Heparin given IA 04/05/2022 08:21:05 SUMMARY OF HEMODYNAMIC DATA Time AIR REST ECG 08:07:49 AO 129/82 (103) SA 08:23:07 LV 130/5, 11 08:27:50 LV 122/4, 7 08:28:00 LV 119/6, 10 08:29:11 LV 122/6, 10 08:29:19 LVp 125/6, 11 08:29:23 AOp 0/-14 (68) 08:29:30 Signed By Junior Cho MD On 04/05/2022 8:38:43 AM Junior Cho MD
[2022-04-05] MEDS: 0.9% Normal Saline 1,000 ML 100 ML IV (09:03)
[2022-04-05] MEDS: Enoxaparin 40 MG/0.4 ML Syringe SC (09:58)
[2022-04-05] MEDS: Fluoxetine HCl 40 MG CAPSULE PO (09:58)
--- NOTE | 2022-04-05 11:17 | DS.PCM_ITS ---
Providers Date of Admission: 04/03/22 Primary Care Physician: POLLY TINEO Consultations 04/03/22 13:17 Consult: Cardiology Routine Consulting Provider: Venu Ko Reason for Consult: abnormal stress test EMERGENT Consult: No MD Notified: Yes Date Notified: 04/03/22 Time Notified: 13:17 Method of Notification: Verbal Reason For Visit: CHEST PAIN Diagnosis Discharge Diagnosis (1) Nonspecific chest pain: Status: Acute Code(s): R07.9 - Chest pain, unspecified Medications at Discharge Home Medications buspirone 5 mg tablet 7.5 mg PO TID Mood 05/08/21 fluoxetine 40 mg capsule 40 mg PO DAILY 05/08/21 gabapentin 300 mg capsule 300 mg PO TID 05/08/21 levothyroxine 88 mcg tablet 125 mcg PO DAILY 05/08/21 aspirin 81 mg capsule 81 mg PO DAILY #30 caps 04/05/22 Hospital Course Operations None Procedures Cardiac catheterization Summary of Care Provided Minutes Spent on Discharge: 45 Hospital Course: Patient is a 46 y/o female with a PMH as outlined who was admitted via the ED with a complaint of chest pain. Sh was at work and started having substernal pressure like chest pain that radiated to the right side of the neck and jaw. She called EMS and was given aspirin and SL nitroglycerin. Labs were significant for potaassium of 3.3. Initial EKG showed no acute ST changes. Initial troponin was 9 but trended upwards later. She was admitted and managed for non-STEMI. Cardiology was consulted. She was placed on aspirin and atorvastatin. She had cardiac cath on 04/05/2022 which showed normal coronaries. Patient remained stable and was discharged home on 04/05/2022. She is follow-up with her primary care doctor and cardiology within 1 to 2 weeks. Patient was seen and examined prior to discharge. Patient looked quite upset and said she was having some personal problems but she did not want to talk about them. She denied any chest pain, palpitations, dizziness, nausea vomiting or diarrhea. Review of systems otherwise negative. Labs and vitals reviewed. Home medication reviewed and reconciled. SHe is to follow up with PCP for lipid profile and A1C to be checked on outpatient basis, and for medications to be initiated as needed. Physical Exam Const alert and oriented x3 Constitutional Narrative: In mild distress as she was tearful due to which she described as personal problems. General Appearance: cooperative, comfortable and well kempt Exam Limitations: no limitations HEENT normocephalic, head/scalp atraumatic, hearing grossly normal bilaterally and moist oral mucous membranes Mouth: oral and palatal mucosa normal Eyes PERRL, EOMs intact bilaterally and conjunctivae normal Neck no lymphadenopathy, supple and no JVD Resp normal respiratory effort, no retractions, no use of accessory muscles and clear to auscultation bilaterally Cardio regular rate, regular rhythm, S1 normal heart sound, S2 normal heart sound and no murmurs GI normal to inspection, nondistended, normoactive bowel sounds, soft to palpation, non-tender and non-distended Extremity normal to inspection, full ROM and no clubbing, cyanosis or edema Skin no rashes or lesions noted, no wounds and skin turgor normal Neuro oriented x3, CN's II-XII intact bilaterally, moves all extremities and no focal motor deficits Sensorium / Orientation: awake and alert Motor Exam: strength 5/5 throughout Psych Psych Narrative: Tearful Mood & Affect: depressed Weight / BMI Weight Weight: 153 lb 7.068 oz Body Mass Index (BMI) 26.4 ABG / Lab / Microbiology Data Result Diagrams: 04/03/22 04:40 04/03/22 04:40 Laboratory: Laboratory Results - last 24 hr 04/05/22 07:46: Urine Test Negative D/C Instructions Discharge Diet: Low fat / Low cholesterol Discharge Activity: Return to Normal Activity Weight Bearing Status: Weight bearing as tolerated Call your doctor if you observe: Fever of 101 or Higher, Shortness of breath, D izziness and Chest pain Meaningful Use Info Meaningful Use Diagnoses (Choose all that apply): None applicable AMI/Post PCI/Angioplasty Aspirin given w/in 24hrs of arrival?: Yes Discharge Plan Admission Admit Date/Time: 04/03/22 11:16 Primary Reason for Your Visit: nonstemi Attending Provider: Rolanda Hayes Primary Care Provider: POLLY TINEO Consulting Providers: Barbie Stewart ; Venu Ko ; Abdi Rivera Instructions Patient Instructions: ED Angina, Stable Discharge Orders/Prescriptions Prescriptions: New aspirin 81 mg capsule 81 mg PO DAILY Qty: 30 1RF Continued fluoxetine 40 mg capsule 40 mg PO DAILY buspirone 5 mg tablet 7.5 mg PO TID levothyroxine 88 mcg tablet 125 mcg PO DAILY Label Comments: TAKE 1 TABLET BY MOUTH ONCE DAILY IN THE MORNING gabapentin 300 mg capsule 300 mg PO TID Referrals / Follow Up: POLLY TINEO [Other] POLLY TINEO [Other] Disposition Disposition (needs filled in before D/C Order can be placed): Home, Self Care Charges/Coding Visit Charges Inpatient E&M: 17051 Disch Hosp
--- NOTE | 2022-04-05 11:25 | CASEMGMT ---
BARBY TORIBIO assessment: Face to Face with patient for initial transition planning/care coordination assessment. BARBY TORIBIO introduced self and role at [facility], pt voices understanding and consents to assessment. Pt is sitting up in bed in no distress on room air. Pt is A/Ox4 and answers all questions appropriately.? Care providers, pharmacy,?and demographics verified. ? 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 pt given ntg and baby asa en route Admitting dx: CP, NSTEMI PCP: Krista Specialists: None Preferred [facility]acy: [facility] Insurance: [facility] Prescription Benefit:? CRS Living Will/HPOA: Pt does not have LW/HPOA and declines AD info. LNOK: Katheryn Watters, daughter Living Arrangements: Pt lives with 3 yo granddaughter in 2 story duplex and states no concerns at home. Pt is independent with ADL's. Transportation: Pt drives self and states no transportation concerns. DME/HHC: Pt states no current DME or need for any further DME. Pt states no hx of HHC or SNF. Pt states no further concerns with going home at time of discharge. 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 Pt states smokes a 1/2 pack cigarettes daily and does not drink ETOH. Pt states no further concerns/needs. CM to follow for any further discharge planning/needs. Advised pt to ask for CM if any further questions/concerns/needs arise, voices understanding. Pt Goal: Home Plan[place] BARBY TORIBIO
== END 2022-04-05 14:29 | disposition home or self-care (01) | DRG 190 ==
LOC: ED 04-03 01:32 → PCU 04-03 01:34
PROVIDERS: Internal Medicine Interventional Cardiology; Admitting Provider Internal Medicine; Emergency Provider Emergency Medicine; Visit Provider Student in an Organized Health Care Education/Training Program
DX: I21.4 Non-ST elevation (NSTEMI) myocardial infarction (principal); E03.9 Hypothyroidism, unspecified; J43.9 Emphysema, unspecified; M79.7 Fibromyalgia; F41.9 Anxiety disorder, unspecified; F17.210 Nicotine dependence, cigarettes, uncomplicated; E87.6 Hypokalemia; E83.42 Hypomagnesemia; F32.A Depression, unspecified; Z79.899 Other long term (current) drug therapy
CPT/HCPCS: 36415; 71046; 71275; 78452; 80048; 80053; 81025; 83735; 84484; 85025; 85379; 85610; 85730; 93005; 93017; 93458; 99152; 99153; 99285; 99406; A9500; J7030; Q9967; A4216; C1769; C1887; C1894; J2785

== ENCOUNTER 2023-07-13 11:20 | Emergency (ER) | payer SELFPAY ==
[2023-07-13 11:21] VITALS: BP 164/105; PULSE 80; RESP 13; TEMP 35.7; O2SAT 99; BMI 29.5
--- NOTE | 2023-07-13 11:30 | EKG12_ITS ---
Test Reason : NEURO/CP Blood Pressure : / mmHG Vent. Rate : 074 BPM Atrial Rate : 075 BPM P-R Int : 146 ms QRS Dur : 088 ms QT Int : 402 ms P-R-T Axes : 024 023 039 degrees QTc Int : 446 ms Normal sinus rhythm Low voltage QRS Borderline ECG Confirmed by KASSIDY BARRETO, SOUTH ([id number]), writer editor MARIAM BLACKMAN ([id number]) on 07/20/2023 10:51:11 AM Referred By: ALEX Confirmed By:SOUTH YI MD
--- NOTE | 2023-07-13 11:30 | CT_ITS ---
STUDY: CT BRAIN WITHOUT CONTRAST REASON FOR EXAM: Female, 48 years old. Chest pain. Left arm heaviness. RADIATION DOSAGE (If Supplied By Facility): CTDIvol = ( 44.99 ) mGy, DLP = ( 796.11 ) mGycm TECHNIQUE: Transaxial CT imaging of the brain was performed without administration of intravenous contrast material. Individualized dose optimization techniques were used for this CT. COMPARISON: No relevant priors. FINDINGS: Normal soft tissue structures. Normal calvarium. Normal size ventricles and extra-axial spaces for the patient''s age. Normal white matter tracts of the cerebral hemispheres. Normal basal ganglia and thalami. Normal brainstem. Normal cerebellum. There is no intracranial hemorrhage. There are no findings of an acute ischemic infarction. Normal visualized paranasal sinuses. CT/Brain/Head without Contrast IMPRESSION: Normal unenhanced CT scan of the brain. Electronically Signed: Joaquín Bernstein MD at 12:13 [facility] ,
--- NOTE | 2023-07-13 11:40 | RAD_ITS ---
STUDY: X-RAY CHEST REASON FOR EXAM: Female, 48 years old. Chest pain TECHNIQUE: Single AP portable view of the chest. COMPARISON: Comparison is made with prior study April 02, 2022. FINDINGS: EKG electrodes are seen. The lungs are clear and expanded. There is no demonstrated pleural abnormality. Normal size heart. Normal mediastinum and jose. Normal visualized pulmonary arteries. Normal visualized aortic arch and descending thoracic aorta. Normal visualized thoracic spine. Normal visualized ribs, clavicles, and shoulders. There is no demonstrated abnormality of the visualized soft tissue structures of the upper abdomen. RAD/Chest 1 View (Portable) IMPRESSION: Normal x-ray examination of the chest. Electronically Signed: Joaquín Bernstein MD at 11:57 EST ,
--- NOTE | 2023-07-13 11:56 | ED.VIS.CHEST ---
HPI History of Present Illness Chief Complaint: Chest Pain Onset/Context/Timing Onset: Today Activity at onset: gradual and onset Timing: Continuous Narrative Narrative: 48-year-old female past medical history of hypothyroidism presents with multiple somatic complaints but mainly chest pain and generalized weakness. Additionally, she states that the left side of her body feels heavy. Her symptoms began at around 7:00 in the morning, 5 hours ago. However, they could have began earlier than that because she went to bed yesterday evening feeling well, and when she awoke at 7:00, she was having problems with generalized weakness of her bilateral lower extremities that she had to crawl up the stairs and get into bed. She denies any fevers or chills. No nausea or vomiting. She feels a chest tightness as well. She denies diaphoresis, or other symptoms. [facility] Medical History Anxiety COPD (chronic obstructive pulmonary disease) Depression Emphysema lung Fibromyalgia Hypothyroid Tobacco abuse Home Medications buspirone 5 mg tablet 7.5 mg PO TID Mood 05/08/21 [History Last Taken Unknown] fluoxetine 40 mg capsule 40 mg PO DAILY 05/08/21 [History Last Taken Unknown] gabapentin 300 mg capsule 300 mg PO TID 05/08/21 [History Last Taken Unknown] levothyroxine 88 mcg tablet 125 mcg PO DAILY 05/08/21 [History Last Taken Unknown] aspirin 81 mg capsule 81 mg PO DAILY #30 caps 04/05/22 [Rx Last Taken Unknown] cephalexin 500 mg capsule 500 mg PO BID #14 caps 07/13/23 [Rx Last Taken Unknown] Allergy/AdvReac Type Severity Reaction Status Date / Time No Known Allergies Allergy Verified 07/13/23 11:27 Social History household members: family Smoking Status: Current every day smoker tobacco type: cigarettes alcohol intake: never substance use type: does not use ROS ROS ED ROS Narrative Constitutional: No fever, no chills. Generalized weakness HEENT: No sore throat. No neck pain. No loss of vision. No rhinorrhea. Cardiovascular: Positive chest pressure/chest pain. No palpitations. No pedal edema. Respiratory: No cough, no shortness of breath. Abdominal: No abdominal pain. No nausea. No vomiting. Genitourinary: No dysuria. No hematuria. Musculoskeletal: No myalgias. No arthralgias. Neurologic: No headaches. No dizziness. No lightheadedness. Weakness, left-sided numbness of left shoulder. Skin: No rash. No change in color. Psychiatric: No depression. No anxiety. EXAM Physical Exam Narrative Exam Narrative: Afebrile. Vital signs noted. HEENT: Normocephalic. Atraumatic. PERRL, EOMI. Neck soft and supple. No point tenderness or step off. Cardiovascular: Regular rate and rhythm. No murmurs, rubs, or gallops appreciated. Respiratory: No tachypnea. Lungs clear to auscultation bilaterally. Gastrointestinal: Abdomen soft, nontender, with normoactive bowel sounds. No rebound or guarding. Neurological: Awake. Alert. Nonfocal, nonlateralizing. NIH stroke scale is 0. Skin: No rash. Normal color. No pallor. Musculoskeletal: No pedal edema. Full range of motion extremities. Const Vital Signs: 07/13/23 11:21 07/13/23 11:26 07/13/23 12:14 Temperature 96.3 F L Temperature Source Temporal Pulse Rate 80 Respiratory Rate 13 Respiratory Effort Normal Non-Labored Blood Pressure 164/105 H Blood Pressure Mean 124 Pulse Ox 99 100 Oxygen Delivery Method Room Air Room Air 07/13/23 12:20 07/13/23 13:00 07/13/23 14:00 Temperature Temperature Source Pulse Rate 56 L 58 L 58 L Respiratory Rate 16 16 13 Respiratory Effort Blood Pressure 156/81 H 162/70 H 152/79 H Blood Pressure Mean 106 100 103 Pulse Ox 95 99 98 Oxygen Delivery Method Nasal Cannula Room Air Room Air MDM MDM MDM Narrative Medical decision making narrative: Comprehensive work-up was pursued. I do not feel that she is having a stroke as her NIH stroke scale is 0. Additionally, she went to bed yesterday evening so she is outside the window for tPA if it were actually indicated. She has no deficit. I feel this is more of a generalized weakness along with chest pain. Her chest pain work-up was pursued and her EKG demonstrates normal sinus rhythm at 74 bpm without ectopy or acute ST changes. No STEMI. No significant change from EKG dated April 05, 2022. She was seen ambulating with assistance to the bathroom. I reviewed her laboratory work and she has a normal white count of 6.5, hemoglobin normal at 13, hematocrit 39.7, platelet count normal at 214. Electrolyte panel is grossly unremarkable with normal sodium of 139, potassium 3.9, BUN of 9 and creatinine 1.11 with low anion gap of 4 as glucose is slightly elevated and appropriate at 114. ALT and AST are normal at 33 and 30 respectively. Initial high-sensitivity troponin is 4 with repeat at 2 hours with a value of 5. This is not a significant delta troponin I do not feel she requires admission and I feel cardiac ischemia has been ruled out by biomarkers. Her urinalysis shows a few white cells at 10-25 and positive nitrites. She will be treated for cystitis with Keflex. Prescription was written and called into her pharmacy. Of significance is her TSH elevated at 204. I do feel that this is the cause of her generalized weakness and malaise. She admits that she has not taken her hypothyroid medication in quite some time. I stressed the importance of taking this and following up with her primary care provider. CT of the brain was obtained and radiology report was reviewed. There is no evidence of acute process. Chest x-ray in 1 view interpreted by myself independently shows no evidence of an acute process, no pneumothorax or pneumonia. I reviewed the radiology report which confirms my independent interpretation. At this point in time, I feel she can be discharged safely home with follow-up. She does not want to be assigned to observation. I do not feel that she is in a myxedema coma or anything of that nature that requires admission. She is to take her medication and follow-up with her primary care provider. Return instructions to the emergency department were reviewed. Disposition is discharged home in stable condition. History & Record Review Discussion w/independent historian: Patient Lab Data Attestation: I reviewed the patient's lab results. Labs: Laboratory Results - last 24 hr 07/13/23 07/13/23 07/13/23 11:22 11:36 12:00 WBC 6.5 RBC 4.12 L Hgb 13.0 Hct 39.7 MCV 96.4 MCH 31.6 MCHC 32.7 RDW Std Deviation 51.2 H RDW Coeff of Manuel 14.5 Plt Count 214 MPV 11.8 Immature Gran % (Auto) 1.100 H Neut % (Auto) 51.5 Lymph % (Auto) 37.1 Love % (Auto) 6.6 Eos % (Auto) 2.0 Baso % (Auto) 1.7 H Absolute Neuts (auto) 3.4 Absolute Lymphs (auto) 2.42 Nucleated RBC % 0 Sodium 139 Potassium 3.9 Chloride 105 Carbon Dioxide 30.0 Anion Gap 4 L BUN 9 Creatinine 1.11 H Estim Creat Clear Calc 56.76 Est GFR (MDRD) Af Amer 67 Est GFR (MDRD) Non-Af 55 L BUN/Creatinine Ratio 8.1 L Glucose 114 H Calcium 8.9 Magnesium 2.2 Total Bilirubin 0.30 AST 33 ALT 30 Alkaline Phosphatase 114 Troponin I High Sens 4 Total Protein 8.2 Albumin 3.8 Globulin 4.4 H Albumin/Globulin Ratio 0.9 TSH 204.00 H Urine Color Yellow Urine Clarity Sl. Cloudy Urine pH 5.0 Ur Specific [place] 1.030 Urine Protein 15 H Urine Glucose (UA) Normal Urine Ketones 5 H Urine Occult Blood 25 H Urine Nitrite Positive H Urine Bilirubin Negative Urine Urobilinogen Normal Ur Leukocyte Esterase 100 H Urine RBC 0 SEEN Urine WBC 10-25 SEEN Ur Squamous Epith Cells 0-5 SEEN Urine Bacteria 2+ Urine Mucus 0 SEEN POC Glucose 100 07/13/23 13:30 WBC RBC Hgb Hct MCV MCH MCHC RDW Std Deviation RDW Coeff of Manuel Plt Count MPV Immature Gran % (Auto) Neut % (Auto) Lymph % (Auto) Love % (Auto) Eos % (Auto) Baso % (Auto) Absolute Neuts (auto) Absolute Lymphs (auto) Nucleated RBC % Sodium Potassium Chloride Carbon Dioxide Anion Gap BUN Creatinine Estim Creat Clear Calc Est GFR (MDRD) Af Amer Est GFR (MDRD) Non-Af BUN/Creatinine Ratio Glucose Calcium Magnesium Total Bilirubin AST ALT Alkaline Phosphatase Troponin I High Sens 5 Total Protein Albumin Globulin Albumin/Globulin Ratio TSH Urine Color Urine Clarity Urine pH Ur Specific [place] Urine Protein Urine Glucose (UA) Urine Ketones Urine Occult Blood Urine Nitrite Urine Bilirubin Urine Urobilinogen Ur Leukocyte Esterase Urine RBC Urine WBC Ur Squamous Epith Cells Urine Bacteria Urine Mucus POC Glucose Radiography Diagnostic Testing: Clinical Impression(s) from Imaging Studies Brain CT 07/13/23 11:30 IMPRESSION: Normal unenhanced CT scan of the brain. Electronically Signed: Joaquín Bernstein MD at 12:13 EST , Chest X-Ray 07/13/23 11:40 IMPRESSION: Normal x-ray examination of the chest. Electronically Signed: Joaquín Bernstein MD at 11:57 EST , Discharge Plan Triage Chief Complaint: Chest Pain ED Provider: Denis Vaca Dx/Rx/DC Orders Clinical Impression: UTI (urinary tract infection), Generalized weakness, Hypothyroid, Chest pain Instructions: ED Chest Pain, Noncardiac, ED Hypothyroidism, ED Weakness (Uncertain Cause) Prescriptions: New cephalexin 500 mg capsule 500 mg PO BID Qty: 14 0RF No Action fluoxetine 40 mg capsule 40 mg PO DAILY buspirone 5 mg tablet 7.5 mg PO TID levothyroxine 88 mcg tablet 125 mcg PO DAILY Patient Comments: TAKE 1 TABLET BY MOUTH ONCE DAILY IN THE MORNING gabapentin 300 mg capsule 300 mg PO TID aspirin 81 mg capsule 81 mg PO DAILY Qty: 30 1RF Primary Care Provider: POLLY TINEO Referrals: POLLY TINEO [Other] Activity Restrictions/Additional Instructions: Make sure you are taking your thyroid medication as previously directed. Take all of your antibiotics. Follow-up with your primary care provider as soon as possible. Disposition Disposition: Home, Self Care
[2023-07-13] MEDS: 0.9% Normal Saline (1000mL) 1,000 ML 1000 ML IV (12:02)
[2023-07-13] MEDS: Aspirin 81 MG TAB.CHEW 324 MG PO (12:03)
[2023-07-13 12:09] LABS: Mucous, Urine 0 SEEN /hpf (<or=2+); Red Blood Cells-Urine 0 SEEN /hpf (0-5)
[2023-07-13 12:10] LABS: Absolute Lymphocyte Count 2.42 X10^3/uL (0.83-4.51); Absolute Neutrophil Count 3.4 X10^3/uL (2.0-7.7); Basophil# 0.11 X10^3/uL; Basophil% 1.7 % (0-1); Eosinophil# 0.13 X10^3/uL; Hematocrit 39.7 % (37-47); Lymphocyte # 2.42 X10^3/ul (0.83-4.51); Lymphocyte % 37.1 % (19-41); Mean Corp Hgb Conc 32.7 g/dL (32-36); Mean Corpuscular Hgb 31.6 pg (27.0-32.0); Mean Corpuscular Volume 96.4 fL (81-99); Mean Platelet Vol. 11.8 fl (6.2-12.0); Monocyte# 0.43 X10^3/uL; Monocyte% 6.6 % (0-10); NRBC Flagged by Analyzer 0 % (0-5); Neutrophil # 3.37 X10^3/uL (2.7-7.7); Neutrophil % 51.5 % (47-70); Platelet Count 214 K/mm3 (150-450); RBC Distribution Width CV 14.5 % (11.6-14.6); RBC Distribution Width SD 51.2 fl (35.1-43.9); Red Blood Count 4.12 M/mm3 (4.2-5.4); White Blood Count 6.5 K/mm3 (4.4-11.0)
[2023-07-13 12:13] LABS: Color, Urine Yellow (Yellow); Glucose, Dipstick Normal (Normal); Ketone-Dipstick 5 mg/dl (Negative); Leukocyte Esterase-Dipstick 100 /ul (Negative); Nitrite-Dipstick Positive (Negative); Occult Blood-Urine 25 /ul (Negative); Protein-Dipstick 15 mg/dl (Negative); Urine Bilirubin Dipstick Negative (Negative); Urine Clarity Sl. Cloudy (Clear); Urine Urobilinogen Normal (Normal)
[2023-07-13 12:14] VITALS: O2SAT 100
[2023-07-13 12:15] LABS: Bedside Glucose 100 mg/dL (74-106)
[2023-07-13 12:20] VITALS: BP 156/81; PULSE 56; RESP 16; O2SAT 95
[2023-07-13 12:20] LABS: White Blood Cells 10-25 SEEN /hpf (0-5)
[2023-07-13 12:21] LABS: Bacteria 2+ /hpf (None Seen); Squamous Epithelial Cells - UA 0-5 SEEN /hpf (5-10)
[2023-07-13 13:00] VITALS: BP 162/70; PULSE 58; RESP 16; O2SAT 99
[2023-07-13 13:30] LABS: ALB/GLOB Ratio 0.9 RATIO (0.9-2.4); AST(SGOT) 33 U/L (15-37); Alanine Aminotransfer ALT/SGPT 30 U/L (13-56); Albumin, Serum 3.8 g/dL (3.2-5.0); Alkaline Phosphatase 114 U/L (45-117); Anion Gap 4 (5-15); BUN 9 mg/dL (7-18); BUN/Creat Ratio 8.1 RATIO (10-20); Calcium,Total 8.9 mg/dL (8.5-10.1); Chloride 105 mmol/L (98-107); Creatinine, Serum 1.11 mg/dL (0.55-1.02); EST Glomerular Filtration Rate 55 mL/min (>60); Est Glom Filt Rate - Afr Amer 67 mL/min (>60); Estimated Creatinine Clearance 56.76 ml/min; Globulin 4.4 g/dL (2.2-4.2); Glucose 114 mg/dL (74-106); Magnesium 2.2 mg/dL (1.6-2.6); Potassium 3.9 mmol/L (3.5-5.1); Protein, Total 8.2 g/dL (6.4-8.2); Sodium Level 139 mmol/L (136-145); Troponin-I HS (w/2H Reflex) 4 pg/mL (3.0-54.0)
[2023-07-13 13:40] LABS: Reflex Troponin-HS? (from REC) Y
[2023-07-13 13:56] LABS: Troponin-I HS 5 pg/mL (3.0-54.0)
[2023-07-13 14:00] VITALS: BP 152/79; PULSE 58; RESP 13; O2SAT 98
== END 2023-07-13 14:44 | disposition home or self-care (01) ==
PROVIDERS: Emergency Provider Emergency Medicine; Visit Provider Emergency Medicine
DX: N39.0 Urinary tract infection, site not specified (principal); J44.9 Chronic obstructive pulmonary disease, unspecified; R53.1 Weakness; R07.9 Chest pain, unspecified; E03.9 Hypothyroidism, unspecified; F41.9 Anxiety disorder, unspecified; F32.A Depression, unspecified; Z79.899 Other long term (current) drug therapy; Z79.82 Long term (current) use of aspirin; F17.210 Nicotine dependence, cigarettes, uncomplicated
CPT/HCPCS: 70450; 71045; 80053; 81001; 82962; 83735; 84443; 84484; 85025; 93005; 96360; 99285; J7030; A4216

== ENCOUNTER 2023-11-05 13:16 | Emergency (ER) | payer SELFPAY ==
[2023-11-05 13:19] VITALS: BP 141/109; PULSE 98; RESP 14; TEMP 36.6; O2SAT 97; BMI 28.9
--- NOTE | 2023-11-05 13:31 | US_ITS ---
Examination: Right upper quadrant abdominal ultrasound. INDICATION: Right upper quadrant pain. TECHNIQUE: A dedicated right upper quadrant ultrasound of the abdomen was obtained including Doppler imaging. The examination is limited secondary to overlying bowel gas and patient''s inability to tolerate the examination. COMPARISON: None FINDINGS: The liver is diffusely echogenic consistent with fatty infiltration. There are stones and/or sludge within the gallbladder that is poorly visualized. There is no pericholecystic fluid nor gallbladder wall thickening. There is a positive reported sonographic Palomo''s sign. The common bile duct measures 4.7 mm. The visualized pancreas is within normal limits. The right kidney measures 11.3 cm in length and is within normal limits. US/Gallbladder IMPRESSION: Fatty infiltration of the liver. Cholelithiasis and/or sludge within the gallbladder with a reported positive sonographic Palomo''s sign and no pericholecystic fluid nor gallbladder wall thickening. Electronically Signed: Sabrina Horvath MD at 15:09 EST ,
--- NOTE | 2023-11-05 13:31 | RAD_ITS ---
INDICATION: Shortness of breath EXAMINATION/TECHNIQUE: X-RAY - XR Chest 2 Views COMPARISON: July 13, 2023 FINDINGS: LINES/DEVICES: None. LUNGS: There is blunting of the costophrenic angles visualized on the lateral image. No pneumothorax. MEDIASTINUM AND CARDIOVASCULAR STRUCTURES: Cardiac silhouette not enlarged. Central airways and mediastinal contour are unremarkable. BONES AND SOFT TISSUES: Unremarkable. RAD/Chest PA and Lateral IMPRESSION: Blunting of the costophrenic angles, may be secondary to pleural thickening or small effusions. Electronically Signed: Sabrina Horvath MD at 14:56 EST ,
--- NOTE | 2023-11-05 13:32 | EDS_ITS ---
HPI <Dr. Nemesio Rush MD - Last Filed: 11/05/23 15:55> HPI - GI History of Present Illness Chief Complaint: Abd Pain Informant: patient Abdominal Pain/Flank Pain Onset: Yesterday Context: Sudden Onset Timing: Continuous Quality: Aching Location: RUQ Current Severity: Severe Maximum Severity: Severe Worsened by: - (breathing, lying back/supine) Nausea/Vomiting/Emesis GI Symptom: Negative for Nausea or Vomiting Diarrhea/Melena/Hematochezia GI Symptom: Negative for Diarrhea, Melena or Hematochezia Associated Symptoms Associated Symptoms: Negative for Dysuria, Frequency, Hematuria or Urgency Narrative Narrative: Patient was relatively sudden onset of pain yesterday she states that seem to start when she stood up at 1 point, it has been persistent but did not become this severe until today, which was more gradual. It hurts a lot to breathe, even if shallow, making her feel short of breath. She denies any nausea or vomiting or known association with food, but she points to her right upper quadrant and states that it wraps around to her right flank. History of a hysterectomy no other abdominal surgeries in the past. No history of DVT or PE. She denies any recent cough. She denies any discomfort up in her chest. The pain radiates to her right shoulder, however. Lying down makes it hurt worse. No recent long travel or immobilization or travel out of the area, no recent hospitalization or surgeries, no leg pain or swelling. [facility] <Dr. Nemesio Rush MD - Last Filed: 11/05/23 15:55> [facility] Medical History (Updated 11/05/23 @ 19:[address] Adele Higgins DO) Anxiety COPD (chronic obstructive pulmonary disease) Depression Emphysema lung Fibromyalgia Hypothyroid Tobacco abuse Home Medications buspirone 5 mg tablet 7.5 mg PO TID Mood 05/08/21 [History Last Taken Unknown] fluoxetine 40 mg capsule 40 mg PO DAILY 05/08/21 [History Last Taken Unknown] gabapentin 300 mg capsule 300 mg PO TID 05/08/21 [History Last Taken Unknown] levothyroxine 88 mcg tablet 125 mcg PO DAILY 05/08/21 [History Last Taken Unknown] aspirin 81 mg capsule 81 mg PO DAILY #30 caps 04/05/22 [Rx Last Taken Unknown] cephalexin 500 mg capsule 500 mg PO BID #14 caps 07/13/23 [Rx Last Taken Unknown] azithromycin 250 mg tablet (Zithromax) 250 mg PO DAILY 4 days #4 tabs 11/05/23 [Rx Last Taken Unknown] Allergy/AdvReac Type Severity Reaction Status Date / Time No Known Allergies Allergy Verified 11/05/23 13:18 Surgical History (Updated 11/05/23 @ 13:[address] Nemesio Rush MD) History of hysterectomy Social History household members: family Smoking Status: Current every day smoker tobacco type: cigarettes alcohol intake: never substance use type: does not use ROS <Dr. Nemesio Rush MD - Last Filed: 11/05/23 15:55> ROS ED Constitutional Constitutional ED: Denies chills or fever(s) Eyes Eyes: Denies change in vision or diplopia ENT ENT ED: Denies rhinorrhea or sore throat Cardiovascular Cardiovascular: Denies chest pain or palpitations Respiratory/Chest Respiratory/Chest: Reports dyspnea; Denies cough Gastrointestinal Gastrointestinal: Reports abdominal pain; Denies diarrhea, melena, nausea or vomiting Genitourinary Genitourinary ED: Denies dysuria or hematuria Musculoskeletal Musculoskeletal: Reports back pain; Denies neck pain Integumentary Denies abscess or rash Neurologic Neurologic: Denies headache(s), paresthesias or weakness Psychiatric Psychiatric: Denies depression or suicidal thoughts EXAM <Dr. Nemesio Rush MD - Last Filed: 11/05/23 15:55> Physical Exam Const Vital Signs: 11/05/23 13:19 11/05/23 19:55 Temperature 97.8 F 97.6 F L Temperature Source Temporal Pulse Rate 98 87 Respiratory Rate 14 18 Blood Pressure 141/109 H 135/91 H Blood Pressure Mean 119 105 Pulse Ox 97 99 Oxygen Delivery Method Room Air Positive well nourished and well developed Constitutional Narrative: In painful distress no respiratory distress, but due to pleuritic nature of discomfort speaking in 3-5 word sentences softly. General Appearance ED: well developed HEENT Reports moist mucous membranes normocephalic and atraumatic Eyes PERRL and EOMs intact bilaterally Neck full ROM, supple and no JVD Resp clear to auscultation bilaterally Resp Narrative: Tachypnea and splinting but no respiratory distress Cardio regular rate, regular rhythm and no murmurs GI non-distended GI Narrative: Very tender in the right upper quadrant with positive Palomo. No other areas of abdominal tenderness. Auscultation: normoactive bowel sounds Palpation: soft Back/Spine General Back: CVA tenderness right and other FROM Extremity normal to inspection General Extremety ED: Negative for edema, pulses abnormal or tenderness General Extremity: Negative for edema or pulses abnormal Neuro oriented x3, CN's II-XII intact bilaterally and no sensory deficits noted Sensorium / Orientation: awake and alert Motor Exam: strength 5/5 throughout Psych Mood & Affect: anxious Skin no rashes or lesions noted and no wounds <Dr. Adele Higgins DO - Last Filed: 11/06/23 00:07> Physical Exam Const Vital Signs: 11/05/23 13:19 11/05/23 19:55 Temperature 97.8 F 97.6 F L Temperature Source Temporal Pulse Rate 98 87 Respiratory Rate 14 18 Blood Pressure 141/109 H 135/91 H Blood Pressure Mean 119 105 Pulse Ox 97 99 Oxygen Delivery Method Room Air [facility] <Dr. Nemesio Rush MD - Last Filed: 11/05/23 15:55> [facility] Narrative Medical decision making narrative: Differential here includes biliary etiologies given the radiation to the right shoulder, kidney stone given the CVA tenderness and the relatively sudden onset of symptoms without relation to food intake, and less likely to be right lower lobe pneumonia or pulmonary embolus/infarct given that I can reproduce her pain by palpating in the right upper quadrant. Starting with an ultrasound, because they leave around this time of the day, and she still has a gallbladder with localized pain to the right upper quadrant, along with analgesics, labs, urinalysis. At this time, the urinalysis still pending but the rest of the labs are returned/resulted and are within normal limits including white blood count and liver enzymes and lipase, her chest x-ray 2 views of mitral rotation is normal, radiology is in agreement, and the gallbladder ultrasound shows cholelithiasis with positive sonographic Palomo's and no pericholecystic fluid or wall thickening at this time. I reviewed the images and the report which I agree with. After analgesics, patient is doing better but still having pain whenever she moves that is fairly significant. Discussed with surgery as I think her gallstone is related to her pain and I suspect she has early acute cholecystitis. Dr. Laird recommends a CT given the lack of history of association with meals, to make sure there is nothing else going on and if not, we will admit. I think this is reasonable. Checked out to oncoming ED physician to check CT and discussed with surgery again. Lab Data Attestation: I reviewed the patient's lab results. Labs: Laboratory Results - last 24 hr 11/05/23 11/05/23 13:36 16:07 WBC 8.8 RBC 4.09 L Hgb 12.4 Hct 38.4 MCV 93.9 MCH 30.3 MCHC 32.3 RDW Std Deviation 46.5 H RDW Coeff of Manuel 13.6 Plt Count 224 MPV 11.3 Immature Gran % (Auto) 0.900 Neut % (Auto) 66.9 Lymph % (Auto) 23.9 [place] % (Auto) 6.6 Eos % (Auto) 0.7 Baso % (Auto) 1.0 Absolute Neuts (auto) 5.9 Absolute Lymphs (auto) 2.09 Nucleated RBC % 0 Sodium 138 Potassium 4.0 Chloride 104 Carbon Dioxide 30.0 Anion Gap 4 L BUN 8 Creatinine 0.83 Estim Creat Clear Calc 81.13 Est GFR (MDRD) Af Amer 94 Est GFR (MDRD) Non-Af 78 BUN/Creatinine Ratio 9.7 L Glucose 94 Calcium 9.1 Total Bilirubin 0.60 AST 21 ALT 20 Alkaline Phosphatase 98 Total Protein 8.6 H Albumin 3.5 Globulin 5.1 H Albumin/Globulin Ratio 0.7 L Lipase 12 L Urine Color Yellow Urine Clarity Clear Urine pH 7.0 Ur Specific [place] 1.010 Urine Protein 15 H Urine Glucose (UA) Normal Urine Ketones 5 H Urine Occult Blood 50 H Urine Nitrite Negative Urine Bilirubin Negative Urine Urobilinogen Normal Ur Leukocyte Esterase 25 H Urine RBC 5-10 SEEN Urine WBC 5-10 SEEN Ur Squamous Epith Cells 5-10 SEEN Urine Bacteria 1+ Urine Mucus 0 SEEN Radiography Diagnostic Testing: Clinical Impression(s) from Imaging Studies Chest X-Ray 11/05/23 13:31 IMPRESSION: Blunting of the costophrenic angles, may be secondary to pleural thickening or small effusions. Electronically Signed: Sabrina Horvath MD at 14:56 EST , Gallbladder Ultrasound 11/05/23 13:31 IMPRESSION: Fatty infiltration of the liver. Cholelithiasis and/or sludge within the gallbladder with a reported positive sonographic Palomo''s sign and no pericholecystic fluid nor gallbladder wall thickening. Electronically Signed: Sabrina Horvath MD at 15:09 EST , Abdomen/Pelvis CT 11/05/23 15:49 IMPRESSION: Fatty infiltration of the liver. Small bilateral pleural effusions associated with lower lobe dependent consolidation. Atherosclerosis. Electronically Signed: Sabrina Horvath MD at 16:24 EST , Abdomen CT 11/05/23 16:12 IMPRESSION: Normal appendix. Note that this was also specifically reported on the prior report. No other changes or additional findings since exam of 3 hours earlier. Electronically Signed: Cruz Shea MD at 19:42 EST , Management Discussion w/another healthcare provider: [employer] Specialist (Surgery Dr. Laird) <Dr. Adele Higgins, DO - Last Filed: 11/06/23 00:07> [facility] Narrative Medical decision making narrative: Differential here includes biliary etiologies given the radiation to the right shoulder, kidney stone given the CVA tenderness and the relatively sudden onset of symptoms without relation to food intake, and less likely to be right lower lobe pneumonia or pulmonary embolus/infarct given that I can reproduce her pain by palpating in the right upper quadrant. Starting with an ultrasound, because they leave around this time of the day, and she still has a gallbladder with localized pain to the right upper quadrant, along with analgesics, labs, urinalysis. At this time, the urinalysis still pending but the rest of the labs are returned/resulted and are within normal limits including white blood count and liver enzymes and lipase, her chest x-ray 2 views of mitral rotation is normal, radiology is in agreement, and the gallbladder ultrasound shows cholelithiasis with positive sonographic Palomo's and no pericholecystic fluid or wall thickening at this time. I reviewed the images and the report which I agree with. After analgesics, patient is doing better but still having pain whenever she moves that is fairly significant. Discussed with surgery as I think her gallstone is related to her pain and I suspect she has early acute cholecystitis. Dr. Laird recommends a CT given the lack of history of association with meals, to make sure there is nothing else going on and if not, we will admit. I think this is reasonable. Checked out to oncoming ED physician to check CT and discussed with surgery again. Care of patient turned over to me awaiting CT scan of the abdomen pelvis at the request of general surgeon. CT showed no significant abnormality. The surgeon did evaluate the CT and was concerned that she had large amount of stool throughout the colon and recommended that we give her p.o. contrast and repeat the CT which was done. The CT again was unremarkable other than the lung bases had some small pleural effusions and potentially some consolidation. Patient denies any respiratory symptoms however. She did have some pleuritic pain yesterday but none today. She is getting up and coughing. Currently her abdominal exam is benign. The surgeon does not think patient has acute cholecystitis given normal labs and clinically really not having a lot of pain in the right upper quadrant pain seem to be more right lower to mid abdomen. I feel she can be discharged to home. I will treat her with Zithromax given the findings on lung exam. Advised to return if increasing shortness of breath, worsening abdominal pain, fever, vomiting, or condition worsening way. Patient has no PE risk factors. She has not had recent travel or surgery. Normal periods of immobilization. No history of PE or DVT. She is not tachycardic or hypoxic. Lab Data Labs: Laboratory Results - last 24 hr 11/05/23 11/05/23 13:36 16:07 WBC 8.8 RBC 4.09 L Hgb 12.4 Hct 38.4 MCV 93.9 MCH 30.3 MCHC 32.3 RDW Std Deviation 46.5 H RDW Coeff of Manuel 13.6 Plt Count 224 MPV 11.3 Immature Gran % (Auto) 0.900 Neut % (Auto) 66.9 Lymph % (Auto) 23.9 [place] % (Auto) 6.6 Eos % (Auto) 0.7 Baso % (Auto) 1.0 Absolute Neuts (auto) 5.9 Absolute Lymphs (auto) 2.09 Nucleated RBC % 0 Sodium 138 Potassium 4.0 Chloride 104 Carbon Dioxide 30.0 Anion Gap 4 L BUN 8 Creatinine 0.83 Estim Creat Clear Calc 81.13 Est GFR (MDRD) Af Amer 94 Est GFR (MDRD) Non-Af 78 BUN/Creatinine Ratio 9.7 L Glucose 94 Calcium 9.1 Total Bilirubin 0.60 AST 21 ALT 20 Alkaline Phosphatase 98 Total Protein 8.6 H Albumin 3.5 Globulin 5.1 H Albumin/Globulin Ratio 0.7 L Lipase 12 L Urine Color Yellow Urine Clarity Clear Urine pH 7.0 Ur Specific [place] 1.010 Urine Protein 15 H Urine Glucose (UA) Normal Urine Ketones 5 H Urine Occult Blood 50 H Urine Nitrite Negative Urine Bilirubin Negative Urine Urobilinogen Normal Ur Leukocyte Esterase 25 H Urine RBC 5-10 SEEN Urine WBC 5-10 SEEN Ur Squamous Epith Cells 5-10 SEEN Urine Bacteria 1+ Urine Mucus 0 SEEN Radiography Diagnostic Testing: Clinical Impression(s) from Imaging Studies Chest X-Ray 11/05/23 13:31 IMPRESSION: Blunting of the costophrenic angles, may be secondary to pleural thickening or small effusions. Electronically Signed: Sabrina Horvath MD at 14:56 EST Reading Location ID and State: [facility] / [place] Tel , Service support , Gallbladder Ultrasound 11/05/23 13:31 IMPRESSION: Fatty infiltration of the liver. Cholelithiasis and/or sludge within the gallbladder with a reported positive sonographic Palomo''s sign and no pericholecystic fluid nor gallbladder wall thickening. Electronically Signed: Sabrina Horvath MD at 15:09 EST Reading Location ID and State: [facility] / [place] Tel , Service support , Abdomen/Pelvis CT 11/05/23 15:49 IMPRESSION: Fatty infiltration of the liver. Small bilateral pleural effusions associated with lower lobe dependent consolidation. Atherosclerosis. Electronically Signed: Sabrina Horvath MD at 16:24 EST , Abdomen CT 11/05/23 16:12 IMPRESSION: Normal appendix. Note that this was also specifically reported on the prior report. No other changes or additional findings since exam of 3 hours earlier. Electronically Signed: Cruz Shea MD at 19:42 EST , Discharge Plan Triage Chief Complaint: Abd Pain ED Provider: Nemesio Rush Dx/Rx/DC Orders Clinical Impression: Abdominal pain, Pneumonia Instructions: ED Abdominal Pain Unkn Cause Fem, ED Pneumonia (Adult) Prescriptions: New azithromycin [Zithromax] 250 mg tablet 250 mg PO DAILY 4 Days Qty: 4 0RF Rx Instructions: start on day 2 of therapy No Action fluoxetine 40 mg capsule 40 mg PO DAILY buspirone 5 mg tablet 7.5 mg PO TID levothyroxine 88 mcg tablet 125 mcg PO DAILY Patient Comments: TAKE 1 TABLET BY MOUTH ONCE DAILY IN THE MORNING gabapentin 300 mg capsule 300 mg PO TID aspirin 81 mg capsule 81 mg PO DAILY Qty: 30 1RF cephalexin 500 mg capsule 500 mg PO BID Qty: 14 0RF Stand Alone Forms: ED Work / School Excuse Primary Care Provider: Care Physician,No Primary Referrals: POLLY TINEO [Other] Disposition Disposition: Home, Self Care Discharge Date/Time: 11/05/23 20:05
[2023-11-05] MEDS: Ketorolac 30 MG/ML Syringe IV (13:42)
[2023-11-05] MEDS: Morphine 4 MG/ML Syringe IV (13:42)
[2023-11-05 13:59] LABS: Absolute Lymphocyte Count 2.09 X10^3/uL (0.83-4.51); Absolute Neutrophil Count 5.9 X10^3/uL (2.0-7.7); Basophil# 0.09 X10^3/uL; Eosinophil# 0.06 X10^3/uL; Eosinophils% 0.7 % (0-5); Hematocrit 38.4 % (37-47); Hemoglobin 12.4 g/dL (12.0-15.0); Lymphocyte # 2.09 X10^3/ul (0.83-4.51); Lymphocyte % 23.9 % (19-41); Mean Corp Hgb Conc 32.3 g/dL (32-36); Mean Corpuscular Hgb 30.3 pg (27.0-32.0); Mean Corpuscular Volume 93.9 fL (81-99); Mean Platelet Vol. 11.3 fl (6.2-12.0); Monocyte# 0.58 X10^3/uL; Monocyte% 6.6 % (0-10); NRBC Flagged by Analyzer 0 % (0-5); Neutrophil # 5.85 X10^3/uL (2.7-7.7); Neutrophil % 66.9 % (47-70); Platelet Count 224 K/mm3 (150-450); RBC Distribution Width CV 13.6 % (11.6-14.6); RBC Distribution Width SD 46.5 fl (35.1-43.9); Red Blood Count 4.09 M/mm3 (4.2-5.4); White Blood Count 8.8 K/mm3 (4.4-11.0)
[2023-11-05 14:03] LABS: ALB/GLOB Ratio 0.7 RATIO (0.9-2.4); AST(SGOT) 21 U/L (15-37); Alanine Aminotransfer ALT/SGPT 20 U/L (13-56); Albumin, Serum 3.5 g/dL (3.2-5.0); Alkaline Phosphatase 98 U/L (45-117); Anion Gap 4 (5-15); BUN 8 mg/dL (7-18); BUN/Creat Ratio 9.7 RATIO (10-20); Calcium,Total 9.1 mg/dL (8.5-10.1); Chloride 104 mmol/L (98-107); Creatinine, Serum 0.83 mg/dL (0.55-1.02); EST Glomerular Filtration Rate 78 mL/min (>60); Est Glom Filt Rate - Afr Amer 94 mL/min (>60); Estimated Creatinine Clearance 81.13 ml/min; Globulin 5.1 g/dL (2.2-4.2); Glucose 94 mg/dL (74-106); Lipase 12 U/L (13-75); Protein, Total 8.6 g/dL (6.4-8.2); Sodium Level 138 mmol/L (136-145)
--- OUTSIDE RECORDS SUMMARY | 2023-11-05 14:08 | XMS RPT_ITS | CCD ---
Author Name Unknown Address [address] [place] [address] Organization [facility] Care Team Providers Care Senior Telecommunications Technician Name Role Phone Unavailable Unavailable Unavailable Covina, Malina Unavailable Unavailable Covina, Malina Unavailable Unavailable Covina, Malina Unavailable Unavailable Covina, Malina Unavailable Unavailable Covina, Malina Unavailable Unavailable Covina, Malina Unavailable Unavailable Chambers, Tammie Unavailable Unavailable Chambers, Tammie Unavailable Unavailable Chambers, Tammie Unavailable Unavailable Chambers, Tammie Unavailable Unavailable Bartolo, Fátima Unavailable Unavailable Bartolo, Fátima Unavailable Unavailable Tavallaee, Dony M Unavailable Unavailable Kadie Velasco Primary Care Provider KADIE VELASCO Primary Care Unavailable KADIE VELASCO Primary Care Unavailable KARYNA ESCOBAR Referring Unavail able KARYNA ESCOBAR Admitting Unavail able KADIE VELASCO Primary Care Unavailable Kadie Velasco CNP Primary Care Provider Morenita Castillo CNP Primary Care Provider Kadie Velasco CNP Primary Care Provider KADIE VELASCO Attending Unavailable KADIE VELASCO Primary Care Unavailable KADIE VELASCO Primary Care Unavailable KADIE VELASCO Attending Unavailable KADIE VELASCO Primary Care Unavailable KADIE VELASCO Admitting Unavailable KADIE VELASCO Primary Care Unavailable MORNEITA CASTILLO Primary Care Unavailable KADIE VELASCO Referring Unavailable KADIE VELASCO Attending Unavailable Allergies Allergy Classification Reported Allergen(s) Allergy Type Date of Onset Reaction(s) Facility (1 source) predniSONE; Translations: [predniSONE] Drug Allergy [facility] Repository (1 source) No Known Allergies; Translations: [No Known Allergies] Propensity to adverse reactions to drug (disorder) [facility] Repository Medications Current Medications Medication Drug Class(es) Dates Sig (Normalized) Sig (Original) atorvastatin 20 mg oral tablet (5 sources) HMG-CoA Reductase Inhibitor Start: 09-23-2022 End: 12-21-2022 take 1 tablet by mouth once daily at bedtime atorvastatin (LIPITOR) 20 MG tablet Indications: Mixed hyperlipidemia Take 1 (one) tablet (20 mg total) by mouth every night at bedtime . 90 tablet 1 12/22/2022 Active busPIRone hydrochloride 7.5 mg oral tablet (10 sources) Start: 09-22-2022 End: 12-21-2022 take 1 tablet by mouth twice daily busPIRone (BUSPAR) 7.5 MG tablet Indications: Anxiety disorder, unspecified type Take 1 (one) tablet (7.5 mg total) by mouth 2 (two) times a day . 180 tablet 1 12/22/2022 Active Completed/Discontinued Medications Medication Drug Class(es) Dates Sig (Normalized) Sig (Original) gabapentin 300 mg oral capsule (1 source) Anti-epileptic Agent Start: 03-24-2022 End: 09-22-2022 take 1 capsule by mouth three times daily gabapentin (NEURONTIN) 300 MG capsule Indications: Fibromyalgia Take 1 (one) capsule (300 mg total) by mouth 3 (three) times a day (Days supply per fill: {DAYS SUPPLY: 30) . 90 capsule 2 03/24/2022 09/22/2022 Discontinued levothyroxine sodium 0.125 mg oral tablet (8 sources) l-Thyroxine Start: 03-24-2022 End: 12-22-2022 take 1 tablet by mouth once daily in the morning levothyroxine (SYNTHROID, LEVOTHROID) 125 MCG tablet Indications: Hypothyroidism, adult Take 1 (one) tablet (125 mcg total) by mouth every morning . 90 tablet 0 09/22/2022 12/22/2022 Discontinued (Reorder (Suppress CancelRx Message to Pharmacy)) Problems Active Problems Problem Classification Problem Date Documented Date Episodic/Chronic Anxiety disorders (12 sources) Anxiety disorder; Translations: [Anxiety disorder, unspecified] Onset: 11-16-2017 11-16-2017 Chronic Disorders of lipid metabolism (13 sources) Hyperlipidemia; Translations: [Mixed hyperlipidemia] Onset: 09-22-2018 09-22-2018 Chronic Mood disorders (12 sources) Recurrent depression; Translations: [Major depressive disorder, recurrent, unspecified] Onset: 11-16-2017 11-16-2017 Chronic Other female genital disorders (2 sources) Vaginal irritation; Translations: [Other specified noninflammatory disorders of vagina] 12-22-2022 Episodic Other female genital disorders (2 sources) Vaginal odor; Translations: [Other specified noninflammatory disorders of vagina] 12-22-2022 Episodic Other female genital disorders (2 sources) Other specified noninflammatory disorders of vagina; Translations: [Other specified noninflammatory disorders of vagina] Onset: 12-22-2022 Episodic Other non-traumatic joint disorders (1 source) Knee pain; Translations: [Chronic pain of left knee] Episodic Other nutritional; endocrine; and metabolic disorders (3 sources) Overweight; Translations: [Overweight] Onset: 11-16-2017 11-16-2017 Chronic Other screening for suspected conditions (not mental disorders or infectious disease) (10 sources) Encounter for screening mammogram for malignant neoplasm of breast; Translations: [Encounter for screening for lipoid disorders] Onset: 09-22-2022 Episodic Substance-related disorders (7 sources) Nicotine dependence; Translations: [Nicotine dependence, cigarettes, uncomplicated] Onset: 09-22-2018 09-22-2018 Chronic Thyroid disorders (20 sources) Hypothyroidism; Translations: [Goiter] Onset: 11-16-2017 11-16-2017 Chronic Past or Other Problems Problem Classification Problem Date Documented Date Episodic/Chronic Immunizations and screening for infectious disease (12 sources) Patient encounter status; Translations: [Encounter for screening for human immunodeficiency virus [HIV]] Onset: 09-22-2022 Episodic Other connective tissue disease (4 sources) Fibromyalgia; Translations: [Fibromyalgia] Onset: 09-10-2020 09-10-2020 Episodic Other nutritional; endocrine; and metabolic disorders (4 sources) Overweight; Translations: [Overweight] Onset: 11-16-2017 11-16-2017 Episodic Results Test Name Value Interpretation Reference Range Facil ity Vital Signs Date Time Vital Sign Value Performing Clinician Faci litgagan 12-22-2022 10:25-0400 Body height 160 cm Kadie Velasco [employer]BOARD MOTORBOAT RIGGER Work Phone: [facility] 12-22-2022 10:25-0400 Body mass index (BMI) [Ratio] 29.37 kg/m2 Kadie Velasco [employer]BOARD MOT[employer]BO[employer] RIGGER Work Phone: [facility] 12-22-2022 10:25-0400 Body temperature 98.2 [degF] Kadie Velasco [employer]BOARD MOTORBO[employer] RIGGER Work Phone: [facility] 12-22-2022 10:25-0400 Body weight 75.21 kg Kadie Velasco [employer]BOARD [employer]GER Work Phone: [facility] 12-22-2022 10:25-0400 Diastolic blood pressure 82 mm[Hg] Kadie Velasco [employer]BOARD [employer]BO[employer] RIGGER Work Phone: [facility] 12-22-2022 10:25-0400 Heart rate 72 /min Kadie Velasco [employer]BOARD [employer]BO[employer] R[employer]GER Work Phone: [facility] 12-22-2022 10:25-0400 Respiratory rate 16 /min Kadie Velasco [employer]BOARD [employer]BO[employer] RIGGER Work Phone: [facility] 12-22-2022 10:25-0400 SaO2% (BldA) [Mass fraction] 98 % Kadie Velasco [employer]BOARD MOT[employer]BO[employer] RIGGER Work Phone: [facility] 12-22-2022 10:25-0400 Systolic blood pressure 120 mm[Hg] Kadie Velasco [employer]BOARD MOTORBO[employer] RIGGER Work Phone: [facility] 09-22-2022 10:52-0500 Body height 160 cm Kadie Velasco [employer]BOARD MOTORBO[employer] RIGGER Work Phone: [facility] 09-22-2022 10:52-0500 Body mass index (BMI) [Ratio] 28.75 kg/m2 Kadie Velasco [employer]BOARD MOTORBO[employer] RIGGER Work Phone: [facility] 09-22-2022 10:52-0500 Body temperature 98.29 [degF] Kadie Velasco OUTBOARD MOTORBO[employer] RIGGER Work Phone: [facility] 09-22-2022 10:52-0500 Body weight 73.62 kg Kadie Velasco [employer]BOARD MOT[employer]BO[employer] RIGGER Work Phone: [facility] 09-22-2022 10:52-0500 Diastolic blood pressure 87 mm[Hg] Kadie Velasco [employer]BOARD MOT[employer]BO[employer] RIGGER Work Phone: [facility] 09-22-2022 10:52-0500 Heart rate 72 /min Kadie Velasco [employer]BOARD MOT[employer]BO[employer] RIGGER Work Phone: [facility] 09-22-2022 10:52-0500 Respiratory rate 18 /min Kadie Velasco [employer]BOARD MOT[employer]BO[employer] RIGGER Work Phone: [facility] 09-22-2022 10:52-0500 SaO2% (BldA) [Mass fraction] 98 % Kadie Velasco [employer]BOARD MOTORBO[employer] RIGGER Work Phone: [facility] 09-22-2022 10:52-0500 Systolic blood pressure 121 mm[Hg] Kadie Velasco [employer]BOARD MOT[employer]BOAT RIGGER Work Phone: [facility] 07-11-2019 08:50-0500 BMI (Body Mass Index) 26.63 kg/m2 Sabayanet Jones [facility] 07-11-2019 08:50-0500 Body weight 72.58 kg Saba [facility] 07-11-2019 08:50-0500 BP Diastolic 79 mm[Hg] Saba [facility] 07-11-2019 08:50-0500 BP Systolic 116 mm[Hg] Saba [facility] 07-11-2019 08:50-0500 Height 165.1 cm Saba [facility] 07-11-2019 08:50-0500 Pulse (Heart Rate) 67 /min Saba [facility] Encounters Encounter Date Encounter Type Care Provider Facility Start: 12-22-2022 End: 12-26-2022 ambulatory KADIEDAISHA BELL [facility] Start: 12-22-2022 End: 12-22-2022 ambulatory KADIEDAISHA BELL [facility] Start: 12-22-2022 End: 12-22-2022 Office outpatient visit 25 minutes Kadie Velasco OUTBOARD MOT[employer]BO[employer] RIGGER Work Phone: [facility] Procedures Date Procedure Procedure Detail Performing Clinician Start: 09-29-2022 Mammography Kadie de jesus [employer]ARD [employer]IGGER Work Phone: Start: 10-16-2019 X-ray of left knee Bright y Jessica Velasco Work Phone: Start: 02-21-2019 Us soft tissue head & neck real time imge docm Kadie Jessica Troncosoman Work Phone: Start: 06-06-2017 Antibody screen Tammie Verduzco Start: 03-23-2017 Mammography Kadie Patel liza Start: 03-18-2017 Microscopic observat ion [Identifier] in Cervix by Cyto stain Kadie Krista Plan of Treatment Date Care Activity Detail Author Start: 09-29-2023 Screening for malignant neoplasm of breast Mammogram [facility] Start: 07-23-2023 Depression Remission Assessment (PHQ9) Depression Remission Assessment (PHQ9) [facility] Start: 06-27-2023 End: 06-27-2023 Patient encounter procedure 06/27/2023 10:40 AM EDT Office Visit [facility] [address] [facility] [place] [address] Kadie Velasco, OUTBOARD MOTORBOAT RIGGER [address] [facility] [place] [address] [facility] Start: 04-29-2023 Influenza vaccination Sequential Influenza Vaccine (Season Ended) [facility] Start: 12-22-2022 End: 12-22-2022 Patient encounter procedure [facility] Start: 09-29-2022 End: 09-29-2022 Patient encounter procedure 09/29/2022 Appointment Radiology [facility] Mammography Start: 04-29-2022 Influenza vaccination Sequential Influenza Vaccine (#1) [facility] Start: 03-18-2022 Screening for malignant neoplasm of cervix PAP SMEAR [facility] Start: 01-14-2020 End: 01-14-2020 Office Visit 01/14/2020 Office Visit Primary Care Kadie Velasco, OUTBOARD MOTORBOAT RIGGER [address] [place] [phone] [facility] Start: 01-10-2020 End: 01-10-2020 Office Visit 01/10/2020 Office Visit Endocrinology Kushal Reilly PA-C [facility] [address] [address] [phone] [facility] Start: 01-10-2020 End: 01-10-2020 Office Visit 01/10/2020 Office Visit Endocrinology Donald Muller, OUTBOARD MOTORBOAT RIGGER [address] [place] [address] [phone] [facility] Start: 10-11-2019 End: 10-11-2019 Office Visit 10/11/2019 Office Visit Primary Care Kadie Velasco, OUTBOARD MOTORBOAT RIGGER [address] [place] [phone] [facility] Start: 04-29-2019 Influenza vaccination given [facility] Start: 04-09-2019 End: 04-09-2019 Office Visit 04/09/2019 Office Visit Primary Care Kadie Velasco, OUTBOARD MOTORBO[employer] RIGGER [address] [place] [phone] [facility] Start: 03-23-2018 Screening for malignant neoplasm of breast Mammogram [facility] Start: 03-23-2018 Screening mammography Mammogram [facility] Start: 06-14-2017 Ambulatory 06/14/2017 Hospital Encounter Tammie Verduzco MD [facility] Boo Parker [address] [address] [phone] [facility] Start: 1991 Hepatitis C screening Hepatitis C Screening [facility] Start: 1988 HIV screening HIV Screening [facility] Start: 1979 Pneumococcal Vaccine: Ped or At-Risk (1 - PCV) Pneumococcal Vaccine: Ped or At-Risk (1 - PCV) [facility] Start: 1976 History and physical examination, annual for health maintenance Wellness Visit [facility] Start: 1973 COVID-19 Vaccine (#1) COVID-19 Vaccine (#1) [facility] Start: 1973 Depression screening using PHQ-9 (Patient Health Questionnaire 9) score DEPRESSION SCREENING (PHQ9) [facility] Start: 1973 Screening for malignant neoplasm of colon [facility] Start: 1973 Tetanus vaccination [facility] Cologuard Cologuard Lab Ro utine Screening for colon cancer Ordered: 09/22/2022 [facility] Payers Date Payer Category Payer Medicaid [id number] 2020 Medicaid [id number] 2020 Medicaid [id number] 2018 Unknown xxxxxxxxx [id number] 2018 Unknown [id number] 2015 Private Health Insurance 1973 Unknown [id number] 2.16. [id number] 1973 Unknown [id number] 2.16. [id number] 1973 Unknown [id number] [id number] 1973 Unknown [id number] 2.16. [id number] 1973 Unknown [id number] 2.16. [id number] 1973 Unknown [id number] 2.16. [id number] 1973 Unknown [id number] 2.16. [id number] 1973 Unknown [id number] 2.16. [id number] Medicaid [id number] 2.16. [id number] Unknown [id number] Social History Date Type Detail Facility Start: 04-07-2017 End: 06-07-2017 Tobacco smoking status WIIS Unknown if ever smoked [facility] Phone: Start: 1975 Sex Assigned At Not on file [facility] Phone: Start: 07-11-2019 End: 09-22-2022 Tobacco smoking status NHIS Current every day smoker [facility] Start: 07-11-2019 End: 12-22-2022 Alcohol intake Lifetime non-drinker (finding) [facility] Start: 09-11-2018 End: 09-22-2022 History SDOH Alcohol Frequency 1 [facility] History of tobacco use Cigarette Smoker [facility] Start: 09-22-2022 End: 09-29-2022 Cigarettes smoked current (pack per day) - [facility] Start: 09-22-2022 End: 12-22-2022 Tobacco use and exposure Smokeless tobacco non-user [facility] Start: 09-22-2022 History SDOH Financial 4 [facility] Start: 09-22-2022 History SDOH Transport Med 2 [facility] Start: 09-11-2022 End: 12-20-2022 Exposure to SARS-CoV-2 (event) Not sure [facility] Start: 12-22-2022 Tobacco smoking status NHIS Occasional tobacco smoker [facility] Start: 09-11-2018 End: 09-22-2022 Alcohol Use Disorder Identification Test - Consumption [AUDIT-C] [facility] Frequency of Alcohol Consumption Never [facility] How hard is it for y ou to pay for the very basics like food, housing, medical care, and heating Not very hard [facility] (I/We) worried wheth er (my/our) food would run out before (I/we) got money to buy more. Never true [facility] Start: 09-11-2018 Gender identity Identifies as female gender (finding) [facility] Start: 09-11-2018 Sexual orientation Heterosexual (finding) [facility] Goals Date Patient Goal Desired Activity /State Personal health goal Clinical Notes 09-22-2022 to 12-22-2022 Assessment & Plan Note - Kadie Velasco CNP - 12/22/2022 11:06 AM EDTAssessment & Plan Note - Kadie Velasco CNP - 12/22/2022 11:06 AM EDTEgera Velasco CNP - 12/22/2022 10:40 AM EDT Note Date & Type Note Facility 12-22-2022 Evaluation + Plan note Associ ated Problem(s): Anxiety disorder Chronic stable. Continue prozac and buspar. [facility] 12-22-2022 Evaluation + Plan note Associ ated Problem(s): Depression, recurrent (HCC) Chronic stable Continue prozac as ordered Recommended cognitive behavioral therapy Recommended self care-mindfulness meditation, exercise, and adequate sleep. Seek emergent help for any worsening of depression or thoughts of harming self or others. [facility] 12-22-2022 Miscellaneous Notes Associate d Problem(s): Anxiety disorder Chronic stable. Continue prozac and buspar. Associated Problem(s): Depression, recurrent (HCC) Chronic stable Continue prozac as ordered Recommended cognitive behavioral therapy Recommended self care-mindfulness meditation, exercise, and adequate sleep. Seek emergent help for any worsening of depression or thoughts of harming self or others. Associated Problem(s): Hyperlipidemia Chronic Continue statin Associated Problem(s): Hypothyroidism, adult Chronic uncontrolled Last TSH completed 09/22/22 was significantly high at 187.00 after she had not been adherent to taking synthroid. Admits to taking synthroid daily over the last 3 months. Will repeat labs today. Continue to take synthroid as ordered and I will notify you if dose needs changed documented in this encounter [facility] 12-22-2022 Miscellaneous Notes Associate d Problem(s): Anxiety disorder Chronic stable. Continue prozac and buspar. Associated Problem(s): Depression, recurrent (HCC) Chronic stable Continue prozac as ordered Recommended cognitive behavioral therapy Recommended self care-mindfulness meditation, exercise, and adequate sleep. Seek emergent help for any worsening of depression or thoughts of harming self or others. Associated Problem(s): Hyperlipidemia Chronic Continue statin Associated Problem(s): Hypothyroidism, adult Chronic uncontrolled Last TSH completed 09/22/22 was significantly high at 187.00 after she had not been adherent to taking synthroid. Admits to taking synthroid daily over the last 3 months. Will repeat labs today. Continue to take synthroid as ordered and I will notify you if dose needs changed documented in this encounter [facility] 12-22-2022 Evaluation + Plan note Associ ated Problem(s): Hyperlipidemia Chronic Continue statin [facility] 12-22-2022 Evaluation + Plan note Associ ated Problem(s): Hypothyroidism, adult Chronic uncontrolled Last TSH completed 09/22/22 was significantly high at 187.00 after she had not been adherent to taking synthroid. Admits to taking synthroid daily over the last 3 months. Will repeat labs today. Continue to take synthroid as ordered and I will notify you if dose needs changed [facility] 12-22-2022 History of Presen t illness Narrative [facility] [address] [facility] [address] [place] [address] Name: Tish Bae Age: 47 y.o. Sex: female : 1975 Chief Complaint Patient presents with Anxiety Patient here for routine follow up of anxiety and depression. Patient wilde snot feel as if she is doing well and reports she just feels ''blah and not right''. Depression Hypothyroidism Patient here for routine follow up of her thyroid medication Vaginal Discharge Patient has concern about possible yeast infection. She reports yellow/ white discharge, itching, and odor x's 1.5 weeks. Gap Closure (Health Maintenance) Colorectal Cancer Screening/Monitoring - just mail ed out Cologuard on Tuesday Tish Bae is a 47 y.o. female being seen on 12/22/22 presenting with Anxiety (Patient here for routine follow up of anxiety and depression. Patient wilde snot feel as if she is doing well and reports she just feels ''blah and not right''. ), Depression, Hypothyroidism (Patient here for routine follow up of her thyroid medication ), Vaginal Discharge (Patient has concern about possible yeast infection. She reports yellow/ white discharge, itching, and odor x's 1.5 weeks. ), and Gap Closure (Health Maintenance) (Colorectal Cancer Screening/Monitoring - just mail ed out Cologuard on Tuesday/) . History of Present Illness: Here for chronic care management Hypothyroidism- Last TSH completed 09/22/22 was significantly high at 187.00 after she had not been adherent to taking synthroid. Admits to taking synthroid daily over the last 3 months. Will repeat labs today. Depression and anxiety- Continues to take prozac and buspar. Still feels blah but relates this to life changes. She has been otc CBD and feels it is also helping. Sleeping well. Denies any suicidal ideations/ homicidal ideations. Is not in counseling at this time Hyperlipidemia- Last lipid panel 09/18/21 and was started on lipitor. Not following a specific diet. Does not exercise. Colon cancer screening-Denies any family history of colon. Submitted cologaurd, waiting on results Vaginal discharge- onset 1.5 weeks ago. Having some itching, irritation, and odor. Has had similar symptoms with yeast infection many years ago. Denies any urinary symptoms. Has not tried any otc medication to help with symptoms. Is not sexually active and denies any concerns for STI. Past Medical History: Past Medical History: Diagnosis Date Anxiety Depression Disease of thyroid gland Injury of back 2004 Past Surgical History: Past Surgical History: Procedure Laterality Date BREAST BIOPSY Left 2005 benign BREAST SURGERY FOOT SURGERY HYSTERECTOMY TONSILLECTOMY TUBAL LIGATION Family History: Family History Problem Relation Age of Onset Kidney failure Mother Kidney failure Brother Breast cancer Neg Hx Medications: Current Outpatient Medications: levothyroxine (SYNTHROID, LEVOTHROID) 125 MCG tablet, Take 1 (one) tablet (125 mcg total) by mouth every morning ., Disp: 90 tablet, Rfl: 0 atorvastatin (LIPITOR) 20 MG tablet, Take 1 (one) tablet (20 mg total) by mouth every night at bedtime ., Disp: 90 tablet, Rfl: 1 busPIRone (BUSPAR) 7.5 MG tablet, Take 1 (one) tablet (7.5 mg total) by mouth 2 (two) times a day ., Disp: 180 tablet, Rfl: 1 FLUoxetine (PROZAC) 40 MG capsule, Take 1 (one) capsule (40 mg total) by mouth daily ., Disp: 90 capsule, Rfl: 1 Allergies: Allergies: Patient has no known allergies. Social History: Social History Tobacco Use Smoking status: Some Days Packs/day: 0.50 Years: 33.00 Pack years: 16.50 Types: Cigarettes Smokeless tobacco: Never Vaping Use Vaping status: Never Used Substance Use Topics Alcohol use: Never Drug use: Never Health Maintenance: Immunizations: There is no immunization history on file for this patient. Oarrs: OARRS/NARxCHECK Report Received and Assessed: 03/24/2022 Date controlled substance agreement signed: 09/10/2020 Date of last drug screen: No data found Functional Assessment: No data found Review of Systems Constitutional: Positive for fatigue. Negative for appetite change and unexpected weight change. HENT: Negative for sore throat and trouble swallowing. Respiratory: Positive for cough. Negative for shortness of breath. Cardiovascular: Negative for chest pain, palpitations and leg swelling. Gastrointestinal: Negative for abdominal pain, diarrhea, nausea and vomiting. Endocrine: Positive for cold intolerance and heat intolerance. Genitourinary: Positive for vaginal discharge (white). Negative for difficulty urinating, dysuria, flank pain, frequency, genital sores, pelvic pain and urgency. Musculoskeletal: Negative for gait problem. Skin: Negative. Negative for rash. Neurological: Negative for dizziness, syncope and headaches. Psychiatric/Behavioral: Negative for agitation, dysphoric mood, self-injury, sleep disturbance and suicidal ideas. The patient is nervous/anxious. Physical Exam Constitutional: General: She is not in acute distress. Appearance: She is well-developed. She is not ill-appearing or toxic-appearing. HENT: Head: Normocephalic and atraumatic. Eyes: General: Right eye: No discharge. Left eye: No discharge. Conjunctiva/sclera: Conjunctivae normal. Neck: Thyroid: No thyroid mass, thyromegaly or thyroid tenderness. Cardiovascular: Rate and Rhythm: Normal rate and regular rhythm. Heart sounds: Normal heart sounds. No murmur heard. Pulmonary: Effort: Pulmonary effort is normal. No respiratory distress. Breath sounds: Normal breath sounds. No wheezing, rhonchi or rales. Abdominal: General: Bowel sounds are normal. There is no distension. Palpations: Abdomen is soft. Tenderness: There is no abdominal tenderness. There is no guarding or rebound. Genitourinary: Comments: Patient declined and completed self swab Musculoskeletal: General: Normal range of motion. Cervical back: Normal range of motion. Right lower leg: No edema. Left lower leg: No edema. Lymphadenopathy: Cervical: No cervical adenopathy. Skin: General: Skin is warm and dry. Findings: No rash. Neurological: General: No focal deficit present. Mental Status: She is alert and oriented to person, place, and time. Gait: Gait normal. Psychiatric: Mood and Affect: Mood normal. Behavior: Behavior normal. Thought Content: Thought content normal. Judgment: Judgment normal. BP 120/82 (BP Location: Left arm, Patient Position: Sitting, BP Cuff Size: Adult) Pulse 72 Temp 98.2 F (36.8 C) (Temporal) Resp 16 Ht 5' 3 Wt 75.2 kg (165 lb 12.8 oz) LMP (LMP Unknown) SpO2 98% BMI 29.37 kg/m Height: 5' 3 Weight: 75.2 kg (165 lb 12.8 oz) Body mass index is 29.37 kg/m . Discussed elevated Body Mass Index (BMI): Advised regular exercise. Discussed elevated Body Mass Index (BMI): Advised healthy and appropriate diet. Rationale: Overweight (Findings) BMI Assessment and Plan: Problem List Items Addressed This Visit Endocrine Hypothyroidism, adult Chronic uncontrolled Last TSH completed 09/22/22 was significantly high at 187.00 after she had not been adherent to taking synthroid. Admits to taking synthroid daily over the last 3 months. Will repeat labs today. Continue to take synthroid as ordered and I will notify you if dose needs changed Relevant Orders TSH Other Anxiety disorder Chronic stable. Continue prozac and buspar. Relevant Medications FLUoxetine (PROZAC) 40 MG capsule busPIRone (BUSPAR) 7.5 MG tablet Depression, recurrent (HCC) Chronic stable Continue prozac as ordered Recommended cognitive behavioral therapy Recommended self care-mindfulness meditation, exercise, and adequate sleep. Seek emergent help for any worsening of depression or thoughts of harming self or others. Relevant Medications FLUoxetine (PROZAC) 40 MG capsule busPIRone (BUSPAR) 7.5 MG tablet Hyperlipidemia Chronic Continue statin Relevant Medications atorvastatin (LIPITOR) 20 MG tablet Other Visit Diagnoses Vaginal irritation - Primary Pt declined vaginal exam, self swabbed. Not sexually active. Declined STI testing. Will treat if needed after review Relevant Orders Vaginitis DNA Probes Vaginal odor Pt declined vaginal exam, self swabbed. Not sexually active. Declined STI testing. Will treat if needed after review Relevant Orders Vaginitis DNA Probes No results found for this or any previous visit (from the past 336 hour(s)). Kadie Velasco CNP 12/22/22 8:48 PM documented in this encounter [facility] 12-22-2022 History of Presen t illness Narrative [facility] [address] [facility] [address] [place] [address] Name: Tish Bae Age: 47 y.o. Sex: female : 1975 Chief Complaint Patient presents with Anxiety Patient here for routine follow up of anxiety and depression. Patient wilde snot feel as if she is doing well and reports she just feels ''blah and not right''. Depression Hypothyroidism Patient here for routine follow up of her thyroid medication Vaginal Discharge Patient has concern about possible yeast infection. She reports yellow/ white discharge, itching, and odor x's 1.5 weeks. Gap Closure (Health Maintenance) Colorectal Cancer Screening/Monitoring - just mail ed out Cologuard on Tuesday Tish Bae is a 47 y.o. female being seen on 12/22/22 presenting with Anxiety (Patient here for routine follow up of anxiety and depression. Patient wilde snot feel as if she is doing well and reports she just feels ''blah and not right''. ), Depression, Hypothyroidism (Patient here for routine follow up of her thyroid medication ), Vaginal Discharge (Patient has concern about possible yeast infection. She reports yellow/ white discharge, itching, and odor x's 1.5 weeks. ), and Gap Closure (Health Maintenance) (Colorectal Cancer Screening/Monitoring - just mail ed out Cologuard on Tuesday/) . History of Present Illness: Here for chronic care management Hypothyroidism- Last TSH completed 09/22/22 was significantly high at 187.00 after she had not been adherent to taking synthroid. Admits to taking synthroid daily over the last 3 months. Will repeat labs today. Depression and anxiety- Continues to take prozac and buspar. Still feels blah but relates this to life changes. She has been otc CBD and feels it is also helping. Sleeping well. Denies any suicidal ideations/ homicidal ideations. Is not in counseling at this time Hyperlipidemia- Last lipid panel 09/18/21 and was started on lipitor. Not following a specific diet. Does not exercise. Colon cancer screening-Denies any family history of colon. Submitted cologaurd, waiting on results Vaginal discharge- onset 1.5 weeks ago. Having some itching, irritation, and odor. Has had similar symptoms with yeast infection many years ago. Denies any urinary symptoms. Has not tried any otc medication to help with symptoms. Is not sexually active and denies any concerns for STI. Past Medical History: Past Medical History: Diagnosis Date Anxiety Depression Disease of thyroid gland Injury of back 2004 Past Surgical History: Past Surgical History: Procedure Laterality Date BREAST BIOPSY Left 2005 benign BREAST SURGERY FOOT SURGERY HYSTERECTOMY TONSILLECTOMY TUBAL LIGATION Family History: Family History Problem Relation Age of Onset Kidney failure Mother Kidney failure Brother Breast cancer Neg Hx Medications: Current Outpatient Medications: levothyroxine (SYNTHROID, LEVOTHROID) 125 MCG tablet, Take 1 (one) tablet (125 mcg total) by mouth every morning ., Disp: 90 tablet, Rfl: 0 atorvastatin (LIPITOR) 20 MG tablet, Take 1 (one) tablet (20 mg total) by mouth every night at bedtime ., Disp: 90 tablet, Rfl: 1 busPIRone (BUSPAR) 7.5 MG tablet, Take 1 (one) tablet (7.5 mg total) by mouth 2 (two) times a day ., Disp: 180 tablet, Rfl: 1 FLUoxetine (PROZAC) 40 MG capsule, Take 1 (one) capsule (40 mg total) by mouth daily ., Disp: 90 capsule, Rfl: 1 Allergies: Allergies: Patient has no known allergies. Social History: Social History Tobacco Use Smoking status: Some Days Packs/day: 0.50 Years: 33.00 Pack years: 16.50 Types: Cigarettes Smokeless tobacco: Never Vaping Use Vaping status: Never Used Substance Use Topics Alcohol use: Never Drug use: Never Health Maintenance: Immunizations: There is no immunization history on file for this patient. Oarrs: OARRS/NARxCHECK Report Received and Assessed: 03/24/2022 Date controlled substance agreement signed: 09/10/2020 Date of last drug screen: No data found Functional Assessment: No data found Review of Systems Constitutional: Positive for fatigue. Negative for appetite change and unexpected weight change. HENT: Negative for sore throat and trouble swallowing. Respiratory: Positive for cough. Negative for shortness of breath. Cardiovascular: Negative for chest pain, palpitations and leg swelling. Gastrointestinal: Negative for abdominal pain, diarrhea, nausea and vomiting. Endocrine: Positive for cold intolerance and heat intolerance. Genitourinary: Positive for vaginal discharge (white). Negative for difficulty urinating, dysuria, flank pain, frequency, genital sores, pelvic pain and urgency. Musculoskeletal: Negative for gait problem. Skin: Negative. Negative for rash. Neurological: Negative for dizziness, syncope and headaches. Psychiatric/Behavioral: Negative for agitation, dysphoric mood, self-injury, sleep disturbance and suicidal ideas. The patient is nervous/anxious. Physical Exam Constitutional: General: She is not in acute distress. Appearance: She is well-developed. She is not ill-appearing or toxic-appearing. HENT: Head: Normocephalic and atraumatic. Eyes: General: Right eye: No discharge. Left eye: No discharge. Conjunctiva/sclera: Conjunctivae normal. Neck: Thyroid: No thyroid mass, thyromegaly or thyroid tenderness. Cardiovascular: Rate and Rhythm: Normal rate and regular rhythm. Heart sounds: Normal heart sounds. No murmur heard. Pulmonary: Effort: Pulmonary effort is normal. No respiratory distress. Breath sounds: Normal breath sounds. No wheezing, rhonchi or rales. Abdominal: General: Bowel sounds are normal. There is no distension. Palpations: Abdomen is soft. Tenderness: There is no abdominal tenderness. There is no guarding or rebound. Genitourinary: Comments: Patient declined and completed self swab Musculoskeletal: General: Normal range of motion. Cervical back: Normal range of motion. Right lower leg: No edema. Left lower leg: No edema. Lymphadenopathy: Cervical: No cervical adenopathy. Skin: General: Skin is warm and dry. Findings: No rash. Neurological: General: No focal deficit present. Mental Status: She is alert and oriented to person, place, and time. Gait: Gait normal. Psychiatric: Mood and Affect: Mood normal. Behavior: Behavior normal. Thought Content: Thought content normal. Judgment: Judgment normal. BP 120/82 (BP Location: Left arm, Patient Position: Sitting, BP Cuff Size: Adult) Pulse 72 Temp 98.2 F (36.8 C) (Temporal) Resp 16 Ht 5' 3 Wt 75.2 kg (165 lb 12.8 oz) LMP (LMP Unknown) SpO2 98% BMI 29.37 kg/m Height: 5' 3 Weight: 75.2 kg (165 lb 12.8 oz) Body mass index is 29.37 kg/m . Discussed elevated Body Mass Index (BMI): Advised regular exercise. Discussed elevated Body Mass Index (BMI): Advised healthy and appropriate diet. Rationale: Overweight (Findings) BMI Assessment and Plan: Problem List Items Addressed This Visit Endocrine Hypothyroidism, adult Chronic uncontrolled Last TSH completed 09/22/22 was significantly high at 187.00 after she had not been adherent to taking synthroid. Admits to taking synthroid daily over the last 3 months. Will repeat labs today. Continue to take synthroid as ordered and I will notify you if dose needs changed Relevant Orders TSH Other Anxiety disorder Chronic stable. Continue prozac and buspar. Relevant Medications FLUoxetine (PROZAC) 40 MG capsule busPIRone (BUSPAR) 7.5 MG tablet Depression, recurrent (HCC) Chronic stable Continue prozac as ordered Recommended cognitive behavioral therapy Recommended self care-mindfulness meditation, exercise, and adequate sleep. Seek emergent help for any worsening of depression or thoughts of harming self or others. Relevant Medications FLUoxetine (PROZAC) 40 MG capsule busPIRone (BUSPAR) 7.5 MG tablet Hyperlipidemia Chronic Continue statin Relevant Medications atorvastatin (LIPITOR) 20 MG tablet Other Visit Diagnoses Vaginal irritation - Primary Pt declined vaginal exam, self swabbed. Not sexually active. Declined STI testing. Will treat if needed after review Relevant Orders Vaginitis DNA Probes Vaginal odor Pt declined vaginal exam, self swabbed. Not sexually active. Declined STI testing. Will treat if needed after review Relevant Orders Vaginitis DNA Probes No results found for this or any previous visit (from the past 336 hour(s)). Kadie Velasco CNP 12/22/22 8:48 PM documented in this encounter [facility] 09-23-2022 Evaluation + Plan note Associ ated Problem(s): Hyperlipidemia Start statin [facility] 09-23-2022 Miscellaneous Notes Associate d Problem(s): Hyperlipidemia Start statin documented in this encounter [facility] 09-22-2022 Evaluation + Plan note Associ ated Problem(s): Anxiety disorder Chronic stable. Continue prozac and buspar. [facility] 09-22-2022 Evaluation + Plan note Associ ated Problem(s): Depression, recurrent (HCC) Controlled on prozac Continue medication as ordered Recommended cognitive behavioral therapy Recommended self care-mindfulness meditation, exercise, and adequate sleep. Seek emergent help for any worsening of depression or thoughts of harming self or others. [facility] 09-22-2022 Miscellaneous Notes Associate d Problem(s): Anxiety disorder Chronic stable. Continue prozac and buspar. Associated Problem(s): Depression, recurrent (HCC) Controlled on prozac Continue medication as ordered Recommended cognitive behavioral therapy Recommended self care-mindfulness meditation, exercise, and adequate sleep. Seek emergent help for any worsening of depression or thoughts of harming self or others. Associated Problem(s): Hyperlipidemia Has refused statin therapy in the past. Will repeat lipid panel today. Associated Problem(s): Hypothyroidism, adult Last TSH on 12/21/21 was high at 15.89. She has not been taking synthroid so will likely be elevated today as well. Will restart synthroid at 125 mcg daily as this was her previous dose. Spent time discussing medication compliance. Will repeat TSH again at follow up in 3 months documented in this encounter [facility] 09-22-2022 Evaluation + Plan note Associ ated Problem(s): Hyperlipidemia Has refused statin therapy in the past. Will repeat lipid panel today. [facility] 09-22-2022 Evaluation + Plan note Associ ated Problem(s): Hypothyroidism, adult Last TSH on 12/21/21 was high at 15.89. She has not been taking synthroid so will likely be elevated today as well. Will restart synthroid at 125 mcg daily as this was her previous dose. Spent time discussing medication compliance. Will repeat TSH again at follow up in 3 months [facility] 09-22-2022 Instructions Kadie Velasco CNP - 09/22/2022 11:21 AM EST It is time to get your Mammogram done. Please call and schedule your appointment. [facility] ( [facility]) [address] [place], [place] [id number] The following attachments cannot be sent through Care Everywhere.Depression: Self Care (French)documented in this encounter [facility] 09-22-2022 History of Presen t illness Narrative [facility] [address] [facility] [phone] Name: Tish Bae Age: 47 y.o. Sex: female : 1975 Chief Complaint Patient presents with Establish Care Thyroid Problem Gap Closure (Health Maintenance) Colorectal Cancer Screening/Monitoring Never done Mammogram due on 03/23/2018 Pap Smear due on 03/18/2020 Tish Bae is a 47 y.o. female being seen on 09/22/22 presenting with Establish Care, Thyroid Problem, and Gap Closure (Health Maintenance) (Colorectal Cancer Screening/Monitoring Never done /Mammogram due on 03/23/2018 /Pap Smear due on 03/18/2020 ) . History of Present Illness: Here for chronic care management Hypothyroidism- Last TSH completed 12/21/21 was high at 15.89. Has not taken medication for several months. States I was in a funk and was not taking medication. Does feel like her thyroid is off. Fatigue and having heat/cold intolerance. Depression and anxiety- Continues to take prozac and buspar. Has a hard time remember to take buspar TID and feels like she only needs it BID. Still having stress at home and this makes her anxious. Had been raising her 2 grandchildren but had to release her grandson back to foster care due to her not being able to handle him. Does feel a sense of relief with doing this. Denies any suicidal ideations/ homicidal ideations. Is not in counseling at this time Hyperlipidemia- Has not been in agreement to taking statin therapy. Not following a specific diet. Does not exercise. Will get lipid panel Mammogram-due and wants order Pap smear-hysterectomy with cervix removed, not related to cancer. Colon cancer screening-Denies any family history of colon. Willing to do cologaurd Past Medical History: Past Medical History: Diagnosis Date Anxiety Depression Disease of thyroid gland Injury of back 2004 Past Surgical History: Past Surgical History: Procedure Laterality Date FOOT SURGERY HYSTERECTOMY TONSILLECTOMY TUBAL LIGATION Family History: Family History Problem Relation Age of Onset Kidney failure Mother Kidney failure Brother Medications: Current Outpatient Medications: busPIRone (BUSPAR) 7.5 MG tablet, Take 1 (one) tablet (7.5 mg total) by mouth 2 (two) times a day ., Disp: 180 tablet, Rfl: 0 FLUoxetine (PROZAC) 40 MG capsule, Take 1 (one) capsule (40 mg total) by mouth daily ., Disp: 90 capsule, Rfl: 0 levothyroxine (SYNTHROID, LEVOTHROID) 125 MCG tablet, Take 1 (one) tablet (125 mcg total) by mouth every morning ., Disp: 90 tablet, Rfl: 0 Allergies: Allergies: Patient has no known allergies. Social History: Social History Tobacco Use Smoking status: Every Day Packs/day: 0.50 Years: 33.00 Pack years: 16.50 Types: Cigarettes Smokeless tobacco: Never Vaping Use Vaping Use: Never used Substance Use Topics Alcohol use: Never Drug use: Never Health Maintenance: Immunizations: There is no immunization history on file for this patient. Review of Systems Constitutional: Positive for appetite change and fatigue. Negative for unexpected weight change. HENT: Negative. Negative for sore throat and trouble swallowing. Eyes: Negative for visual disturbance. Respiratory: Negative for cough and shortness of breath. Cardiovascular: Negative for chest pain, palpitations and leg swelling. Gastrointestinal: Negative for abdominal pain, diarrhea, nausea and vomiting. Endocrine: Positive for cold intolerance and heat intolerance. Negative for polydipsia and polyuria. Genitourinary: Negative. Negative for frequency and vaginal discharge. Musculoskeletal: Negative for gait problem. Skin: Negative. Negative for rash. Neurological: Positive for headaches. Negative for dizziness and light-headedness. Psychiatric/Behavioral: Negative for dysphoric mood, hallucinations, self-injury, sleep disturbance and suicidal ideas. The patient is nervous/anxious. Physical Exam Constitutional: General: She is not in acute distress. Appearance: She is well-developed. She is not ill-appearing. HENT: Head: Normocephalic and atraumatic. Right Ear: External ear normal. Left Ear: External ear normal. Eyes: Extraocular Movements: Extraocular movements intact. Conjunctiva/sclera: Conjunctivae normal. Pupils: Pupils are equal, round, and reactive to light. Neck: Thyroid: Thyroid tenderness (on right side) present. No thyroid mass or thyromegaly. Cardiovascular: Rate and Rhythm: Normal rate and regular rhythm. Heart sounds: Normal heart sounds. No murmur heard. Pulmonary: Effort: Pulmonary effort is normal. No respiratory distress. Breath sounds: Normal breath sounds. No wheezing, rhonchi or rales. Abdominal: General: Bowel sounds are normal. There is no distension. Palpations: Abdomen is soft. Tenderness: There is no abdominal tenderness. There is no guarding or rebound. Musculoskeletal: General: Normal range of motion. Cervical back: Normal range of motion. Right lower leg: No edema. Left lower leg: No edema. Skin: General: Skin is warm and dry. Findings: No rash. Neurological: Mental Status: She is alert and oriented to person, place, and time. Gait: Gait normal. Psychiatric: Attention and Perception: Attention normal. Mood and Affect: Mood normal. Speech: Speech normal. Behavior: Behavior normal. Thought Content: Thought content normal. Judgment: Judgment normal. BP 121/87 (BP Location: Left arm, Patient Position: Sitting, BP Cuff Size: Adult) Pulse 72 Temp 98.3 F (36.8 C) (Temporal) Resp 18 Ht 5' 3 Wt 73.6 kg (162 lb 4.8 oz) LMP (LMP Unknown) SpO2 98% BMI 28.75 kg/m Height: 5' 3 Weight: 73.6 kg (162 lb 4.8 oz) Body mass index is 28.75 kg/m . Discussed elevated Body Mass Index (BMI): Advised regular exercise. Discussed elevated Body Mass Index (BMI): Advised healthy and appropriate diet. Rationale: Overweight (Findings) BMI Problem List Items Addressed This Visit Endocrine Hypothyroidism, adult Last TSH on 12/21/21 was high at 15.89. She has not been taking synthroid so will likely be elevated today as well. Will restart synthroid at 125 mcg daily as this was her previous dose. Spent time discussing medication compliance. Will repeat TSH again at follow up in 3 months Relevant Medications levothyroxine (SYNTHROID, LEVOTHROID) 125 MCG tablet Other Relevant Orders CBC and Differential Comprehensive Metabolic Panel TSH Other Anxiety disorder Chronic stable. Continue prozac and buspar. Relevant Medications FLUoxetine (PROZAC) 40 MG capsule busPIRone (BUSPAR) 7.5 MG tablet Depression, recurrent (HCC) Controlled on prozac Continue medication as ordered Recommended cognitive behavioral therapy Recommended self care-mindfulness meditation, exercise, and adequate sleep. Seek emergent help for any worsening of depression or thoughts of harming self or others. Relevant Medications FLUoxetine (PROZAC) 40 MG capsule busPIRone (BUSPAR) 7.5 MG tablet Hyperlipidemia Has refused statin therapy in the past. Will repeat lipid panel today. Relevant Orders Lipid Panel Other Visit Diagnoses Screening mammogram for breast cancer - Primary Relevant Orders Mammography Screening Johny Bilateral Encounter for screening for HIV Relevant Orders HIV 1/2 Screen (4th Generation) Encounter for hepatitis C screening test for low risk patient Relevant Orders Hepatitis C Antibody Screening for colon cancer After discussion is willing to do cologaurd, order placed Relevant Orders Cologuard Goals Quit smoking / using tobacco *Get labs. Schedule mammogram. Complete cologaurd Follow up in 3 months or sooner if needed No results found for this or any previous visit (from the past 336 hour(s)). Kadie Velasco CNP 09/22/22 9:17 AM Depression Screening 03/24/2022 09/22/2022 Little interest or pleasure in doing things 0 3 Feeling down, depressed, or hopeless 0 3 PHQ-2 Total Score 0 6 Trouble falling or staying asleep, or sleeping too much - 2 Feeling tired or having little energy - 2 Poor appetite or overeating - 2 Feeling bad about yourself - or that you are a failure or have let yourself or your family down - 2 Trouble concentrating on things, such as reading the newspaper or watching television - 2 Moving or speaking so slowly that other people could have noticed. Or the opposite - being so fidgety or restless that you have been moving around a lot more than usual - 2 Thoughts that you would be better off , or of hurting yourself in some way - 0 PHQ-9 Total Score - 18 If you checked off any problems, how difficult have these problems made it for you to do your work, take care of things at home, or get along with other people? - Very difficult [facility] Diagnosis Mixed hyperlipidemia- Primary [facility] Diagnosis Vaginal irritation- Primary Pruritus of genital organs Mixed hyperlipidemia Hypothyroidism, adult Other specified acquired hypothyroidism Anxiety disorder, unspecified type Depression, recurrent (HCC) Major depressive disorder, recurrent episode, unspecified Vaginal odor Unspecified symptom associated with female genital organs [facility] Diagnosis Vaginal irritation- Primary Pruritus of genital organs Mixed hyperlipidemia Hypothyroidism, adult Other specified acquired hypothyroidism Anxiety disorder, unspecified type Depression, recurrent (HCC) Major depressive disorder, recurrent episode, unspecified Vaginal odor Unspecified symptom associated with female genital organs [facility] Attachments The following attachments cannot be sent through Care Everywhere. * Depression: Self Care (French) [facility] Attachments The following attachments cannot be sent through Care Everywhere. 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 female 1975 Subjective: Tish Bae is a 44 y.o. female who I am asked to see in consultation for evaluation of thyroid function/thyroid enlargement. Ms. Bae is a 44-year-old female patient who presents to our office from her PCP office for thyroid goiter. Patient states that she has been on thyroid medication for quite some time. In additionshe has had issues with trouble swallowing and what she presumes is a thyroid goiter for the past close to 10 years. She had never had a thyroid ultrasound up until January 2019. She was found to have aright sided enlarged thyroid lobe and was sent to endocrinology for further evaluation/management. Symptoms consist of fatigue, goiter. Symptoms have present for 10 years. The symptoms are moderate.The problem has been gradually worsening. Previous thyroid studies include: TSH and free thyroxine.The hypothyroidism is due to hypothyroidism and goiter. Patient is currently taking Synthroid 88 mcg daily. She is never had antibody testing for Ron's or Graves' disease. The patient denies URI symptoms, recent , amiodarone use, seizure medications, steroid use, recent hospitalization or acute illness, radiation exposure to head or neck, drug abuse. The patient reports use of thyroid medicines, tender neck / sore throat. Prior studies include FT I, TSH, thyroid scan. Thyroid risk factors: Age >20, <60, Female Gender Review of Systems: Review of Systems Constitutional: Negative for appetite change, fatigue and unexpected weight change. HENT: Positive for trouble swallowing. Negative for sore throat. Respiratory: Negative for cough and shortness of breath. Cardiovascular: Negative for chest pain, palpitations and leg swelling. Gastrointestinal: Negative for abdominal pain, constipation, diarrhea, nausea and vomiting. Endocrine: Negative for cold intolerance and heat intolerance. Skin: Negative. Neurological: Negative for dizziness, light-headedness and headaches. Psychiatric/Behavioral: Negative for agitation, self-injury, sleep disturbance and suicidal ideas. The patient is not nervous/anxious. The following portions of the patient's history were reviewed and updated as appropriate: allergies, current medications, past family history, past medical history, past social history, past surgicalhistory and problem list. Past Medical History: Diagnosis Date Anxiety Depression Disease of thyroid gland Past Surgical History: Procedure Laterality Date FOOT SURGERY HYSTERECTOMY TONSILLECTOMY TUBAL LIGATION History reviewed. No pertinent family history. Social History Tobacco Use Smoking status: Current Every Day Smoker Smokeless tobacco: Never Used Substance Use Topics Alcohol use: Never Frequency: Never Drug use: Never Medications: Medication List Accurate as of July 11, 2019 11:59 PM. If you have any questions, ask your nurse or doctor. CONTINUE taking these medications busPIRone 5 MG tablet Commonly known as: BUSPAR Take 1 (one) tablet (5 mg total) by mouth 2 (two) times a day . FLUoxetine 40 MG capsule Commonly known as: PROZAC Take 1 (one) capsule (40 mg total) by mouth daily . levothyroxine 88 MCG tablet Commonly known as: SYNTHROID, LEVOTHROID Take 1 (one) tablet (88 mcg total) by mouth every morning . Objective: Physical Exam: Vitals: 07/11/19 0850 BP: 116/79 Pulse: 67 Weight: 72.6 kg (160 lb) Height: 5' 5 Wt Readings from Last 3 Encounters: 07/12/19 72.3 kg (159 lb 6.4 oz) 07/11/19 72.6 kg (160 lb) 04/09/19 67.6 kg (149 lb) Physical Exam Constitutional: She is oriented to person, place, and time. She appears well- developed and well-nourished. No distress. HENT: Head: Normocephalic and atraumatic. Mouth/Throat: Oropharynx is clear and moist. Eyes: Pupils are equal, round, and reactive to light. Conjunctivae and EOM are normal. Neck: Normal range of motion. Neck supple. Thyromegaly (R>L, firm right thyroid lobe felt ) present. Cardiovascular: Normal rate, regular rhythm, normal heart sounds and intact distal pulses. Exam reveals no gallop and no friction rub. No murmur heard. Pulses: Dorsalis pedis pulses are 2+ on the right side and 2+ on the left side. Pulmonary/Chest: Effort normal and breath sounds normal. No respiratory distress. She has no wheezes. She has no rales. Abdominal: Soft. Bowel sounds are normal. She exhibits no distension. There is no tenderness. Musculoskeletal: Normal range of motion. General: No deformity or edema. Right foot: Normal. Normal range of motion. No swelling or deformity. Left foot: Normal. Normal range of motion. No swelling or deformity. Neurological: She is alert and oriented to person, place, and time. Skin: Skin is warm and dry. No rash noted. No erythema. Psychiatric: She has a normal mood and affect. Her behavior is normal. Judgment and thought contentnormal. Lab Review: Lab Results Component Value Date TSH 2.80 07/12/2019 TSH 38.60 (H) 09/13/2018 Lab Results Component Value Date FREET4 1.1 07/12/2019 02/15/2019 TSH 0.26 12/27/2018 TSH 9.94 11/03/2018 TSH 9.77 09/13/2018 TSH 38.60 Radiology Review: 02/19/19 US THYROID ONLY HISTORY: ORDERING SYSTEM PROVIDED HISTORY: hypothyroidism and is having trouble swallowing ORDERING SYSTEM PROVIDED DIAGNOSIS CODES: E03.9 Hypothyroidism, adult COMPARISON: None. TECHNIQUE: Thyroid ultrasound utilizing grayscale and color Doppler analysis. FINDINGS: Asymmetric enlargement of the right thyroid lobe. Echotexture is diffusely heterogeneous. Vascularity appears normal. No solid nodules identified. Right thyroid lobe measures 5.4 x 2.7 x 1.9 cm (15 mL). Isthmus measures 0.3 cm in AP dimension. Left thyroid lobe measures 3.6 x 1.8 x 1.3 cm (4.2 mL). IMPRESSION: 1. Heterogeneous appearance of the thyroid gland without focal solid nodule. 2. Asymmetric enlargement of the right thyroid lobe. ST/bd Assessment: Dx: Hypothyroidism. Tish Bae is a 44 y.o. female who I am asked to see in consultation for evaluation of thyroid function and enlarged thyroid. This diagnosis was discussed and reviewed with the patient including the advantages of drug therapy. Discussed the possibility of Ron's thyroiditis, pending antibody testing. Plan: 1. Continue Levothyroxine 88mcg daily 2. Repeat TSH and free T4 today, along with TSI and TPO 3. Recheck TFTs prior to next visit in 6months. 4. The risks and benefits of my recommendations, as well as other treatment options were discussed with the patient today. Questions were answered, by Dr Beth 5. Follow up: 6 months and as needed. Orders Placed This Encounter Procedures T4, Free TSH Thyroid peroxidase antibody (TPO) Thyroid Stimulating Immunoglobulin TSH T4, Free Electronically signed by Saba Jones APRN-OUTBOARD [employer]OR[employer]IGGER 198:56 PM documented in this encounter Assessments Diagnosis Hypothyroidism, adult Other specified acquired hypothyroidism Thyroid goiter Goiter, unspecified Diagnosis Chronic pain of left knee Diagnosis Hypothyroidism, adult Other specified acquired hypothyroidism Reason for Referral Status Reason Specialty Diagnoses / Procedures Referred By Contact Referred To Contact Closed Central Scheduling Diagnoses Hypothyroidism, adult Procedures US Thyroid Only Kadie Velasco CNP [address] [place] [address] Central Scheduling [address] [place] [address] Specialty Diagnoses / Procedures Referred By Contac t Referred To Contact Radiology Diagnoses Screening mammogram for breast cancer Procedures Mammography Screening Johny Bilateral Kadie Velasco CNP [address] [place] [address] Referral ID Status Reason Start Date Expiration Date V isits Requested Visits Authorized [id number] Authorized 09/22/2022 09/22/2023 1 1 Additional Source Comments INFORMATION SOURCE (unrecogn ized section and content) DATE CREATED AUTHOR AUTHOR'S ORGANIZ ATION 02/22/2018 [facility] DATE CREATED AUTHOR AUTHOR'S ORGANIZ ATION 09/14/2020 [facility] DATE CREATED AUTHOR AUTHOR'S ORGANIZ ATION 12/24/2022 [facility] DATE CREATED AUTHOR AUTHOR'S ORGANIZ ATION 12/26/2022 [facility] Reason for Visit (unrecogniz ed section and content) Status Reason Specialty Diagnoses / Procedures Referred By Contact Referred To Contact Closed Endocrinology Diagnoses Hypothyroidism, adult Thyroid goiter Kadie Velasco CNP [address] [place] [address] Chantal Beth MD [facility] Tylor Sloan [address] [address] Status Reason Specialty Diagnoses / Procedures Referred By Contact Referred To Contact Closed Central Scheduling Diagnoses Hypothyroidism, adult Procedures US Thyroid Only Kadie Velasco CNP [address] [place] [address] Central Scheduling [address] [place] [address] Reason Comments Establish Care Thyroid Problem Gap Closure (Health Maintenance) Colormike nevarez Cancer Screening/Monitoring Never done Mammogram due on 03/23/2018 Pap Smear due on 03/18/2020 Reason Comments Anxiety Patient here for rou berenice follow up of anxiety and depression. Patient wilde snot feel as if she is doing well and reports she just feels ''blah and not right''. Depression Hypothyroidism Patient here for rou berenice follow up of her thyroid medication Vaginal Discharge Patient has concern about possible yeast infection. She reports yellow/ white discharge, itching, and odor x's 1.5 weeks. Gap Closure (Health Maintenance) Alla geri Cancer Screening/Monitoring - just mail ed out Cologuard on Tuesday Care Teams (unrecognized sec tion and content) Senior Telecommunications Technician Relationship Specialty Start Date End Date Morenita Castillo, ALONZO [address] [place] [id number] PCP - General 09/23/22 Senior Telecommunications Technician Relationship Specialty Start Date End Date Kadie Velasco CNP [address] [place] [id number] PCP - General Nurse Practitioner 10/06/22 Senior Telecommunications Technician Relationship Specialty Start Date End Date Kadie Velasco CNP [address] [place] [id number] PCP - General Nurse Practitioner 10/06/22 FOR RECORDS PERTAINING TO PATIENTS WHO ARE OR HAVE BEEN ENROLLED IN A CHEMICAL DEPENDENCY/SUBSTANCEABUSE PROGRAM, SOME INFORMATION MAY BE OMITTED. This clinical summary was aggregated from multiple sources. Caution should be exercised in using it in the provision of clinical care. This summary normalizes information from multiple sources, and as a consequence, information in this document may materially change the coding, format and clinical context of patient data. In addition, data may be omitted in some cases. CLINICAL DECISIONS SHOULD BE BASED ON THE PRIMARY CLINICAL RECORDS. [facility], [facility]. provides no warranty or guarantee of the accuracy or completeness of information in this document.
--- NOTE | 2023-11-05 15:49 | CT_ITS ---
STUDY: CT ABDOMEN AND PELVIS WITH CONTRAST - URINARY TRACT REASON FOR EXAM: Female, 48 years old. Right sided abd pain RADIATION DOSAGE (If Supplied By Facility): CTDIvol = ( 18.26 ) mGy, DLP = ( 858.41 ) mGycm TECHNIQUE: IV 100mL Isovue-370 was administered. Transaxial images were obtained from the dome of the diaphragm to the symphysis pubis subsequent to intravenous contrast administration. Multiplanar coronal and sagittal images were reformatted. Individualized Dose Optimization Techniques Were Used For This CT. COMPARISON: Ultrasound dated November 05, [address] of the chest dated April 02, 2022 FINDINGS: There are small bilateral pleural effusions associated with lower lobe consolidation. The visualized portions of the heart are within normal limits. The liver is diffusely low in attenuation consistent with fatty infiltration. There are scattered well-circumscribed round low-attenuation foci which may reflect cysts and/or hemangiomas. Normal gallbladder and extrahepatic biliary system. Normal spleen. Normal pancreas. Normal bilateral adrenal glands. Normal visualized stomach. Normal small intestine. Normal colon. The appendix is visualized and appears normal. There is diffuse atherosclerotic calcification of the abdominal aorta, without a demonstrated aneurysm. No retroperitoneal adenopathy. Normal right kidney. There are too small to characterize low-attenuation foci within the left kidney which may reflects cysts. Normal urinary bladder. There is minimal free fluid within the pelvis which may be physiologic. Normal abdominal wall. Normal osseous structures. CT/Abdomen/Pelvis W IV Cont ONLY IMPRESSION: Fatty infiltration of the liver. Small bilateral pleural effusions associated with lower lobe dependent consolidation. Atherosclerosis. Electronically Signed: Sabrina Horvath MD at 16:24 EST ,
--- NOTE | 2023-11-05 16:12 | CT_ITS ---
STUDY: CT ABDOMEN AND PELVIS WITHOUT CONTRAST REASON FOR EXAM: Female, 48 years old. abdominal pain RADIATION DOSAGE (If Supplied By Facility): CTDIvol = ( 9.95 ) mGy, DLP = ( 502.10 ) mGycm TECHNIQUE: Transaxial images were obtained from the dome of the diaphragm to the symphysis pubis without oral contrast, and without intravenous contrast. Sagittal and coronal images were reconstructed. Individualized dose optimization techniques were used for this CT. COMPARISON: Same day, 3:59 PM. FINDINGS: Since the exam of 3 hours earlier, patient was given oral contrast. There is no contrast however in the stomach duodenum or proximal small bowel, which are otherwise unremarkable. The mid to distal small bowel is normal in appearance and caliber. Contrast has reached the right colon and hepatic flexure which are filled with stool and otherwise unremarkable. A small amount of contrast is seen in the appendix which is normal, as indicated on the prior study. No evidence of appendicitis, obstruction, or GI abnormality. No other changes or additional findings since exam of 3 hours earlier. Again noted are abnormalities in both posterior lung bases. CT/Abdomen/Pel W ORAL Cont Only IMPRESSION: Normal appendix. Note that this was also specifically reported on the prior report. No other changes or additional findings since exam of 3 hours earlier. Electronically Signed: Cruz Shae MD at 19:42 EST ,
[2023-11-05 17:07] LABS: Mucous, Urine 0 SEEN /hpf (<or=2+)
[2023-11-05 17:10] LABS: Color, Urine Yellow (Yellow); Glucose, Dipstick Normal (Normal); Ketone-Dipstick 5 mg/dl (Negative); Leukocyte Esterase-Dipstick 25 /ul (Negative); Nitrite-Dipstick Negative (Negative); Occult Blood-Urine 50 /ul (Negative); Protein-Dipstick 15 mg/dl (Negative); Urine Bilirubin Dipstick Negative (Negative); Urine Clarity Clear (Clear); Urine Urobilinogen Normal (Normal)
[2023-11-05 17:20] LABS: Bacteria 1+ /hpf (None Seen); Red Blood Cells-Urine 5-10 SEEN /hpf (0-5); Squamous Epithelial Cells - UA 5-10 SEEN /hpf (5-10); White Blood Cells 5-10 SEEN /hpf (0-5)
[2023-11-05 19:55] VITALS: BP 135/91; PULSE 87; RESP 18; TEMP 36.4; O2SAT 99
[2023-11-05] MEDS: Azithromycin 250 MG Tablet 500 MG PO (20:01)
== END 2023-11-05 20:05 | disposition home or self-care (01) ==
PROVIDERS: Emergency Provider Emergency Medicine; Visit Provider Emergency Medicine
DX: R10.11 Right upper quadrant pain (principal); Z79.899 Other long term (current) drug therapy; J18.9 Pneumonia, unspecified organism; F41.9 Anxiety disorder, unspecified; F32.A Depression, unspecified; E03.9 Hypothyroidism, unspecified; Z90.710 Acquired absence of both cervix and uterus; F17.210 Nicotine dependence, cigarettes, uncomplicated
CPT/HCPCS: 71046; 74176; 74177; 76705; 80053; 81001; 83690; 85025; 96374; 96375; 99283; Q9967; A4216

== ENCOUNTER 2024-07-05 10:09 | Emergency (ER) | payer SELFPAY ==
[2024-07-05 10:10] VITALS: BP 144/96; PULSE 68; RESP 15; TEMP 36.7; O2SAT 99; BMI 28.8
[2024-07-05] MEDS: Ketorolac 30 MG/ML Syringe IV (10:38)
[2024-07-05 10:42] LABS: Absolute Lymphocyte Count 1.21 X10^3/uL (0.83-4.51); Absolute Neutrophil Count 1.8 X10^3/uL (2.0-7.7); Basophil# 0.02 X10^3/uL; Basophil% 0.6 % (0-1); Eosinophil# 0.04 X10^3/uL; Eosinophils% 1.2 % (0-5); Hematocrit 33.5 % (37-47); Hemoglobin 10.9 g/dL (12.0-15.0); Lymphocyte # 1.21 X10^3/ul (0.83-4.51); Lymphocyte % 35.7 % (19-41); Mean Corp Hgb Conc 32.5 g/dL (32-36); Mean Corpuscular Hgb 30.4 pg (27.0-32.0); Mean Corpuscular Volume 93.3 fL (81-99); Mean Platelet Vol. 9.9 fl (6.2-12.0); Monocyte# 0.34 X10^3/uL; NRBC Flagged by Analyzer 0 % (0-5); Neutrophil # 1.77 X10^3/uL (2.7-7.7); Neutrophil % 52.2 % (47-70); Platelet Count 201 K/mm3 (150-450); RBC Distribution Width CV 12.4 % (11.6-14.6); RBC Distribution Width SD 42.9 fl (35.1-43.9); Red Blood Count 3.59 M/mm3 (4.2-5.4); White Blood Count 3.4 K/mm3 (4.4-11.0)
[2024-07-05 10:52] LABS: D-Dimer Quantitative (DVT/PE) 0.63 FEU/ug/m (0.27-0.49)
[2024-07-05 10:59] LABS: AST(SGOT) 17 U/L (15-37); Alanine Aminotransfer ALT/SGPT 15 U/L (13-56); Albumin, Serum 3.1 g/dL (3.2-5.0); Alkaline Phosphatase 101 U/L (45-117); Anion Gap 2 (5-15); BUN 9 mg/dL (7-18); BUN/Creat Ratio 12.4 RATIO (10-20); Bilirubin, Direct 0.14 mg/dL (0.00-0.30); Calcium,Total 8.6 mg/dL (8.5-10.1); Chloride 108 mmol/L (98-107); Creatinine, Serum 0.72 mg/dL (0.55-1.02); EST Glomerular Filtration Rate 90 mL/min (>60); Est Glom Filt Rate - Afr Amer 109 mL/min (>60); Estimated Creatinine Clearance 92.32 ml/min; Globulin 4.1 g/dL (2.2-4.2); Glucose 92 mg/dL (74-106); Lipase 15 U/L (13-75); Potassium 3.9 mmol/L (3.5-5.1); Protein, Total 7.2 g/dL (6.4-8.2); Sodium Level 138 mmol/L (136-145); Troponin-I HS (w/2H Reflex) 4 pg/mL (3.0-54.0)
[2024-07-05 11:09] VITALS: BP 131/95; PULSE 61; RESP 18; O2SAT 98
[2024-07-05 11:20] LABS: Bacteria 0 SEEN /hpf (None Seen); Mucous, Urine 0 SEEN /hpf (<or=2+); Red Blood Cells-Urine 0 SEEN /hpf (0-5); White Blood Cells 0 SEEN /hpf (0-5)
[2024-07-05 11:26] LABS: Color, Urine Yellow (Yellow); Glucose, Dipstick Normal (Normal); Ketone-Dipstick Negative (Negative); Leukocyte Esterase-Dipstick Negative /ul (Negative); Nitrite-Dipstick Negative (Negative); Occult Blood-Urine 150 /ul (Negative); Protein-Dipstick Negative (Negative); Specific Gravity, Urine 1.005 (1.002-1.030); Urine Bilirubin Dipstick Negative (Negative); Urine Clarity Clear (Clear); Urine Urobilinogen Normal (Normal)
[2024-07-05 11:31] LABS: Squamous Epithelial Cells - UA 0-5 SEEN /hpf (5-10)
[2024-07-05 12:16] VITALS: BP 125/77; O2SAT 99
[2024-07-05 12:35] LABS: Reflex Troponin-HS? (from REC) Y
[2024-07-05 12:57] LABS: Troponin-I HS 6 pg/mL (3.0-54.0)
[2024-07-05 13:00] VITALS: BP 127/77; PULSE 55; RESP 15; O2SAT 98
[2024-07-05 13:21] VITALS: BP 134/81; PULSE 54; RESP 14; TEMP 36.6; O2SAT 99
[2024-07-05 13:23] LABS: Troponin-I HS 6 pg/mL (3.0-54.0)
== END 2024-07-05 13:34 | disposition home or self-care (01) ==
PROVIDERS: Emergency Provider Emergency Medicine; Visit Provider Emergency Medicine
DX: R07.9 Chest pain, unspecified (principal); J44.9 Chronic obstructive pulmonary disease, unspecified; F17.210 Nicotine dependence, cigarettes, uncomplicated; F32.A Depression, unspecified; F41.9 Anxiety disorder, unspecified; E03.9 Hypothyroidism, unspecified; Z79.899 Other long term (current) drug therapy; Z79.890 Hormone replacement therapy; Z90.710 Acquired absence of both cervix and uterus
CPT/HCPCS: 71045; 71275; 80048; 80076; 81001; 83690; 84484; 85025; 85379; 93005; 96374; 99284; Q9967; A4216

== ENCOUNTER 2025-02-18 02:59 | Emergency (ER) | payer SELFPAY ==
[2025-02-18 03:00] VITALS: BP 180/97; PULSE 83; RESP 20; TEMP 36.6; O2SAT 100; BMI 29.0
[2025-02-18] MEDS: 0.9% Normal Saline (1000mL) 1,000 ML 1000 ML IV (03:22)
[2025-02-18] MEDS: Ketorolac 30 MG/ML Syringe IV (03:22)
[2025-02-18] MEDS: DiphenhydrAMINE 50 MG/ML Syringe 25 MG IV (03:23)
[2025-02-18] MEDS: Metoclopramide 10 MG/2 ML Vial IV (03:23)
--- NOTE | 2025-02-18 03:31 | EX.ED.DYSGE1 ---
HPI History of Present Illness Chief Complaint: Headache Narrative Narrative: Chief complaint and HPI: Headache. 49-year-old female with past medical history of migraines, HLD, depression, hypothyroidism presents for evaluation of headache. Patient states she developed a headache yesterday morning that has progressively worsened. Associated symptoms are photophobia, phonophobia, nausea, vomiting. Patient states her headache is similar to previous migraines. She denies any fever, chills, URI symptoms, vision changes, hearing changes, neck pain, syncope, neurological deficit, numbness/tingling, weakness, chest pain, shortness of breath. Denies any injury or trauma. Review of systems: See HPI Medications: As listed on the chart Allergies: As listed on the chart PFSH: Per chart Vital signs: As listed on the chart. Reviewed. Physical exam: Gen: A&O x3, sitting in a dark room with a wash rag over her eyes Head: Normocephalic, atraumatic Eyes: No sclera icterus, conjunctiva clear, PERRL, EOMI ENT: TMs clear BL, moist mucous membranes, posterior oropharynx unremarkable, uvula midline Neck: Trachea midline, No JVD, Full ROM CV: RRR, no murmurs, no peripheral edema Resp: Lungs CTA BL, no w/r/c GI: Abd soft, non-distended, non-tender, no r/r/g Musc: Full ROM, no deformity Skin: Warm, dry, no rash Neuro: Alert, oriented, grossly intact, sensation intact Psych: Cooperative, appropriate mood and affect [facility] Medical History Emphysema lung COPD (chronic obstructive pulmonary disease) Tobacco abuse Hypothyroid Fibromyalgia Depression Anxiety Home Medications ?Medication ?Instructions ?Recorded ?Last Taken ?Type buspirone 5 mg tablet 7.5 mg PO BID Mood 05/08/21 Unknown History atorvastatin 20 mg tablet 20 mg PO QHS 07/05/24 Unknown History fluoxetine 20 mg capsule 20 mg PO DAILY 07/05/24 Unknown History levothyroxine 125 mcg tablet 125 mcg PO DAILY 07/05/24 Unknown History ondansetron 4 mg disintegrating 4 mg PO Q8H PRN PRN Nausea #10 tabs 02/18/25 Unknown Rx tablet pregabalin 75 mg capsule 75 mg PO BID 02/18/25 Unknown History Allergy/AdvReac Type Severity Reaction Status Date / Time No Known Allergies Allergy Verified 02/18/25 03:04 Surgical History History of hysterectomy Social History household members: family Smoking Status: Current every day smoker tobacco type: cigarettes alcohol intake: never substance use type: does not use EXAM Physical Exam Const Vital Signs: 02/18/25 03:00 Temperature 97.9 F Temperature Source Temporal Pulse Rate 83 Respiratory Rate 20 H Blood Pressure 180/97 H Blood Pressure Mean 124 Pulse Ox 100 Oxygen Delivery Method Room Air MDM MDM MDM Narrative Medical decision making narrative: 49-year-old female with past medical history of migraines, HLD, depression, hypothyroidism presents for evaluation of headache. Associated symptoms are photophobia, phonophobia, nausea, vomiting. Patient has a history of migraines and states that this feels similar to her previous migraines. Denies acute onset of headache reaching maximal intensity in under one hour. This is neither the worst headache that she has ever experienced, nor was the onset timed with exertional activity or trauma. Patient has not experienced any fever, unusual neck pain or stiffness, syncope, or near syncope. She denies any numbness, tingling, or weakness of the extremities. Denies any intracranial abnormalities. Differential diagnosis includes but is not limited to migraine headache, tension headache. At this point in time, I do not think there is any need for imaging. Patient's symptoms will be treated with a migraine cocktail. On reevaluation, patient's headache has improved. She is now with her eyes open. Patient stable to discharge home. Follow-up with primary care physician. Zofran as needed for nausea and vomiting. Tylenol and Motrin as needed for headache. Patient confirmed understanding the plan Impression: 1. Migraine 2. History of migraines Discharge Plan Triage Chief Complaint: Headache ED Provider: Cassius Owens Dx/Rx/DC Orders Clinical Impression: Migraine Instructions: ED, Migraine (Classical) Prescriptions: New ondansetron 4 mg tablet,disintegrating 4 mg PO Q8H PRN PRN (Reason: Nausea) Qty: 10 0RF No Action buspirone 5 mg tablet 7.5 mg PO BID pregabalin 75 mg capsule 75 mg PO BID atorvastatin 20 mg tablet 20 mg PO QHS levothyroxine 125 mcg tablet 125 mcg PO DAILY fluoxetine 20 mg capsule 20 mg PO DAILY Primary Care Provider: Kadie Velasco Referrals: Kadie Velasco, [employer] [Primary Care Provider] - 3-5 Days Activity Restrictions/Additional Instructions: Follow-up with your primary care physician. Return back to the ED if symptoms change or worsen. He received Toradol here in the emergency department, no ibuprofen for 8 hours. Okay for Tylenol. No antinausea medicine for 8 hours. Zofran as needed for nausea. Print Language: Andorran Disposition Disposition: Home, Self Care
[2025-02-18 04:21] VITALS: BP 116/68; PULSE 74; RESP 16; TEMP 36.6; O2SAT 99
--- OUTSIDE RECORDS SUMMARY | 2025-02-18 04:52 | XMS RPT_ITS | CCD ---
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 Performed By: #### 9 5859 #### [facility] [address], [address] [place] [address] Medical Billing Clerk: Uri Rosales MD Marijuana Metabolite 175 ng/mL High <5 [facility] Comment on above: Result Comment: See Note 1 Performed By: #### 9 2329 #### [facility] [address], [address] [place] [address] Medical Billing Clerk: Uri Rosales MD Marijuana Metabolite 20 Positive Abnormal <20 [facility] Comment on above: Result Comment: Jeaneth mónica Metabolite detected is consistent with exposure to Marijuana (THC) and/or hemp derived products. Some jurisdictions do not include hemp within the definition of Marijuana. Performed By: #### 9 3609 #### [facility] of [address], [address] [place] [address] Medical Billing Clerk: Uri Rosales MD MDMA/MDA Negative Normal <500 [facility] Comment on above: Performed By: #### 9 2469 #### [facility] [address], [address] [place] [address] Medical Billing Clerk: Uri Rosales MD Methadone Metabolite Negative Normal <100 [facility] Comment on above: Performed By: #### 9 1419 #### [facility] [address], [address] [place] [address] Medical Billing Clerk: Uri Rosales MD Opiates Negative Normal <100 [facility] Comment on above: Performed By: #### 9 2469 #### [facility] of [address], [address] [place] [address] Medical Billing Clerk: Uri Rosales MD Oxycodone Negative Normal <100 [facility] Comment on above: Performed By: #### 9 2469 #### [facility] [address], [address] [place] [address] Medical Billing Clerk: Uri Rosales MD Phencyclidine Negative Normal <25 [facility] Comment on above: Performed By: #### 9 2469 #### [facility] of [place] [address] Medical Billing Clerk: Uri Rosales MD CBC (INCLUDES DIFF/PLT)on Basophils (Bld) [#/Vol] 0.039 10*3/uL Normal 0-200 [facility] Comment on above: Performed By: #### 6 399, 37403, 7600, 496 #### [facility] of [address], [address] [place] [address] Medical Billing Clerk: Uri Rosales MD Basophils/100 WBC (Bld) 1.1 % Normal [facility] Comment on above: Performed By: #### 6 399, 10228, 7600, 496 #### [facility] of [address], [address] [place] [address] Medical Billing Clerk: Uri Rosales MD Eosinophils (Bld) [#/Vol] 0.049 10*3/uL Normal 15-500 [facility] Comment on above: Performed By: #### 6 399, 60372, 7600, 496 #### [facility] of [place] [address] Medical Billing Clerk: Uri Rosales MD Eosinophils/100 WBC (Bld) 1.4 % Normal [facility] Comment on above: Performed By: #### 6 399, 89063, 7600, 496 #### [facility] of [address], [address] [place], [place] [address] Medical Billing Clerk: Uri Rosales MD Erythrocyte distribution width (RBC) [Ratio] 12.1 % Normal 11.0-15.0 [facility] Comment on above: Performed By: #### 6 399, 80260, 7600, 496 #### [facility] of [place] [address] Medical Billing Clerk: Uri Rosales MD Hematocrit (Bld) [Volume fraction] 35.3 % Normal 35.0-45.0 [facility] Comment on above: Performed By: #### 6 399, 35826, 7600, 496 #### [facility] [place] [address] Medical Billing Clerk: Uri Rosales MD Hemoglobin (Bld) [Mass/Vol] 11.5 g/dL Low 11.7-15.5 [facility] Comment on above: Performed By: #### 6 399, 71324, 7600, 496 #### [facility] of [place] [address] Medical Billing Clerk: Uri Rosales MD Lymphocytes (Bld) [#/Vol] 1.155 10*3/uL Normal 850-3900 [facility] Comment on above: Performed By: #### 6 399, 93984, 7600, 496 #### [facility] [place] [address] Medical Billing Clerk: Uri Rosales MD Lymphocytes/100 WBC (Bld) 33.0 % Normal [facility] Comment on above: Performed By: #### 6 399, 20859, 7600, 496 #### [facility] [place] [address] Medical Billing Clerk: Uri Rosales MD MCH (RBC) [Entitic mass] 30.3 pg Normal 27.0-33.0 [facility] Comment on above: Performed By: #### 6 399, 51236, 7600, 496 #### [facility] [place] [address] Medical Billing Clerk: Uri Rosales MD MCHC (RBC) [Mass/Vol] 32.6 g/dL Normal 32.0-36.[address] [facility] Comment on above: Result Comment: For adults, a slight decrease in the calculated MCHC value (in the range of 30 to 32 g/dL) is most likely not clinically significant; however, it should be interpreted with caution in correlation with other red cell parameters and the patient's clinical condition. Performed By: #### 6 399, 36261, 7600, 496 #### [facility] [place] [address] Medical Billing Clerk: Uri Rosales MD MCV (RBC) [Entitic vol] 92.9 fL Normal 80.0-100.0 [facility] Comment on above: Performed By: #### 6 399, 17106, 7600, 496 #### [facility] [place] [address] Medical Billing Clerk: Uri Rosales MD Monocytes (Bld) [#/Vol] 0.308 10*3/uL Normal 200-950 [facility] Comment on above: Performed By: #### 6 399, 00247, 7600, 496 #### [facility] [place] [address] Medical Billing Clerk: Uri Rosales MD Monocytes/100 WBC (Bld) 8.8 % Normal [facility] Comment on above: Performed By: #### 6 399, 12220, 7600, 496 #### [facility] [place] [address] Medical Billing Clerk: Uri Rosales MD Neutrophils (Bld) [#/Vol] 1.95 10*3/uL Normal 7287-4805 [facility] Comment on above: Performed By: #### 6 399, 29872, 7600, 496 #### [facility] [place] [address] Medical Billing Clerk: Uri Rosales MD Neutrophils/100 WBC (Bld) 55.7 % Normal [facility] Comment on above: Performed By: #### 6 399, 31102, 7600, 496 #### [facility] [place] [address] Medical Billing Clerk: Uri Rosales MD Platelet mean volume (Bld) [Entitic vol] 11.1 fL Normal 7.5-12.5 [facility] Comment on above: Performed By: #### 6 399, 07051, 7600, 496 #### [facility] of [address], [address] [place] [address] Medical Billing Clerk: Uri Rosales MD Platelets (Bld) [#/Vol] 219 10*3/uL Normal 140-400 [facility] Comment on above: Performed By: #### 6 399, 34324, 7600, 496 #### [facility] [place] [address] Medical Billing Clerk: Uri Rosales MD RBC (Bld) [#/Vol] 3.80 10*6/uL Normal 3.80-5.10 [facility] Comment on above: Performed By: #### 6 399, 83072, 7600, 496 #### [facility] [place] [address] Medical Billing Clerk: Uri Rosales MD WBC (Bld) [#/Vol] 3.5 10*3/uL Low 3.8-10.8 [facility] Comment on above: Performed By: #### 6 399, 20940, 7600, 496 #### [facility] [place] [address] Medical Billing Clerk: Uri Rosales MD [facility] Albumin [Mass/Vol] 3.6 g/dL Normal 3.6-5.1 [facility] Comment on above: Performed By: #### 6 399, 61216, 7600, 496 #### [facility] [place] [address] Medical Billing Clerk: Uri Rosales MD Albumin/Globulin [Mass ratio] 1.1 {ratio} Normal 1.0-2.5 [facility] Comment on above: Performed By: #### 6 399, 58143, 7600, 496 #### [facility] [place] [address] Medical Billing Clerk: Uri Rosales MD ALP [Catalytic activity/Vol] 80 U/L Normal 37-153 [facility] Comment on above: Performed By: #### 6 399, 14260, 7600, 496 #### [facility] of [address], [address] [place] [address] Medical Billing Clerk: Uri Rosales MD ALT [Catalytic activity/Vol] 11 U/L Normal 6-29 [facility] Comment on above: Performed By: #### 6 399, 70198, 7600, 496 #### [facility] [place] [address] Medical Billing Clerk: Uri Rosales MD AST [Catalytic activity/Vol] 16 U/L Normal 10-35 [facility] Comment on above: Performed By: #### 6 399, 30401, 7600, 496 #### [facility] [place] [address] Medical Billing Clerk: Uri Rosales MD Bilirubin [Mass/Vol] 0.5 mg/dL Normal 0.2-1.2 [facility] Comment on above: Performed By: #### 6 399, 33353, 7600, 496 #### [facility] [place] [address] Medical Billing Clerk: Uri Rosales MD BUN/CREATININE RATIO SEE NOTE: Normal 6-22 [facility] Comment on above: Result Comment: Not Reported: BUN and Creatinine are within reference range. Performed By: #### 6 399, 68089, 7600, 496 #### [facility] [place] [address] Medical Billing Clerk: Uri Rosales MD Calcium [Mass/Vol] 8.7 mg/dL Normal 8.6-10.4 [facility] Comment on above: Performed By: #### 6 399, 71932, 7600, 496 #### [facility] [place] [address] Medical Billing Clerk: Uri Rosales MD Chloride [Moles/Vol] 105 mmol/L Normal 98-110 [facility] Comment on above: Performed By: #### 6 399, 26359, 7600, 496 #### [facility] [place] [address] Medical Billing Clerk: Uri Rosales MD CO2 [Moles/Vol] 30 mmol/L Normal 20-32 [facility] Comment on above: Performed By: #### 6 399, 90897, 7600, 496 #### [facility] [place] [address] Medical Billing Clerk: Uri Rosales MD Creatinine [Mass/Vol] 0.69 mg/dL Normal 0.50-1.[address] [facility] Comment on above: Performed By: #### 6 399, 49909, 7600, 496 #### [facility] [place] [address] Medical Billing Clerk: Uri Rosales MD GFR/1.73 sq M.predicted among non-blacks MDRD (S/P/Bld) [Vol rate/Area] 105 mL/min/{1.73_m2} Normal > OR = 60 [facility] Comment on above: Performed By: #### 6 399, 22814, 7600, 496 #### [facility] [place] [address] Medical Billing Clerk: Uri Rosales MD Globulin (S) [Mass/Vol] 3.2 g/dL Normal 1.9-3.7 [facility] Comment on above: Performed By: #### 6 399, 99818, 7600, 496 #### [facility] [place] [address] Medical Billing Clerk: Uri Rosales MD Glucose [Mass/Vol] 77 mg/dL Normal 65-99 [facility] Comment on above: Result Comment: Fasting reference interval Performed By: #### 6 399, 46379, 7600, 496 #### [facility] [place] [address] Medical Billing Clerk: Uri Rosales MD Potassium [Moles/Vol] 4.3 mmol/L Normal 3.5-5.[address] [facility] [address] [facility] Comment on above: Performed By: #### 6 399, 70995, 7600, 496 #### [facility] [place] [address] Medical Billing Clerk: Uri Rosales MD Protein [Mass/Vol] 6.8 g/dL Normal 6.1-8.1 [facility] Comment on above: Performed By: #### 6 399, 30397, 7600, 496 #### [facility] [place] [address] Medical Billing Clerk: Uri Rosales MD Sodium [Moles/Vol] 139 mmol/L Normal 135-146 [facility] Comment on above: Performed By: #### 6 399, 42105, 7600, 496 #### [facility] [place] [address] Medical Billing Clerk: Uri Rosales MD Urea nitrogen [Mass/Vol] 12 mg/dL Normal 7-25 [facility] Comment on above: Performed By: #### 6 399, 03588, 7600, 496 #### [facility] [place] [address] Medical Billing Clerk: Uri Rosales MD HEMOGLOBIN A1con 07-12-2024 HEMOGLOBIN A1c 5.2 % of total Hgb Normal <5.7 [facility] Comment on above: Result Comment: For the purpose of screening for the presence of diabetes: <5.7% Consistent with the absence of diabetes 5.7-6.4% Consistent with increased risk for diabetes (prediabetes) > or =6.5% Consistent with diabetes This assay result is consistent with a decreased risk of diabetes. Currently, no consensus exists regarding use of hemoglobin A1c for diagnosis of diabetes in children. According to [place] Diabetes Association (ADA) guidelines, hemoglobin A1c <7.0% represents optimal control in non- diabetic patients. Different metrics may apply to specific patient populations. Standards of Medical Care in Diabetes(ADA). Performed By: #### 6 399, 68778, 7600, 496 #### [facility] [address], [address] [place] [address] Medical Billing Clerk: Uri Rosales MD LIPID PANEL, [facility] 11- Cholesterol [Mass/Vol] 107 mg/dL Normal <200 [facility] Comment on above: Order Comment: FASTI NG:YES FASTING: YES Performed By: #### 6 399, 27572, 7600, 496 #### [facility] [address], [address] [place] [address] Medical Billing Clerk: Uri Rosales MD Cholesterol in HDL [Mass/Vol] 35 mg/dL Low > OR = 50 [facility] Comment on above: Order Comment: FASTI NG:YES FASTING: YES Performed By: #### 6 399, 41769, 7600, 496 #### [facility] [address], [address] [place] [address] Medical Billing Clerk: Uri Rosales MD Cholesterol in LDL [Mass/Vol] 54 mg/dL Normal [facility] Comment on above: Order Comment: FASTI NG:YES FASTING: YES Result Comment: Refe rence range: <100 Desirable range <100 mg/dL for primary prevention; <70 mg/dL for patients with CHD or diabetic patients with > or = 2 CHD risk factors. LDL-C is now calculated using the Narendra calculation, which is a validated novel method providing better accuracy than the Friedewald equation in the estimation of LDL-C. Robel MOORE et al. IVETT. 2013;310(19): 7558-9566 (http://education.[employer]/faq/LSG813) Performed By: #### 6 399, 79868, 7600, 496 #### [facility] [address], [address] [place] [address] Medical Billing Clerk: Uri Rosales MD Cholesterol.total/Rosalina sterol in HDL [Mass ratio] 3.1 {ratio} Normal <5.0 [facility] Comment on above: Order Comment: FASTI NG:YES FASTING: YES Performed By: #### 6 399, 99430, 7600, 496 #### [facility] [address], [address] [place] [address] Medical Billing Clerk: Uri Rosales MD NON HDL CHOLESTEROL 72 mg/dL (calc) Normal <130 [facility] Comment on above: Order Comment: FASTI NG:YES FASTING: YES Result Comment: For patients with diabetes plus 1 major ASCVD risk factor, treating to a non-HDL-C goal of <100 mg/dL (LDL-C of <70 mg/dL) is considered a therapeutic option. Performed By: #### 6 399, 89564, 7600, 496 #### [facility] [place] [address] Medical Billing Clerk: Uri Rosales MD Triglyceride [Mass/Vol] 94 mg/dL Normal <150 [facility] Comment on above: Order Comment: FASTI NG:YES FASTING: YES Performed By: #### 6 399, 92614, 7600, 496 #### [facility] [place] [address] Medical Billing Clerk: Uri Rosales MD TSHon 07-12-2024 TSH Qn 0.16 m[IU]/L Low [facility] Comment on above: Result Comment: Refe rence Range > or = 20 Years 0.40-4.50 Ranges First trimester 0.26-2.66 Second trimester 0.55-2.73 Third trimester 0.43-2.91 Performed By: #### 6 399, 77194, 7600, 496 #### [facility] [place] [address] Medical Billing Clerk: Uri Rosales MD 12 Lead EKGon 07-05-2024 12 Lead EKG [facility] [address] [place] [address] 12 Lead EKG 07/05/24 1014 MR#: [id number] Acct: [id number] Name: TISH BAE Rep #: [id number] : 1975 49 From: Junior Cho MD Attending Dr: Status: DEP ER Ordering Dr: Juan Rivera DO Date: 07/05/24 Location: ED Sex: F C Admitted: Test Reason : Blood Pressure : */* mmHG Vent. Rate : 66 BPM Atrial Rate : 66 BPM P-R Int : 178 ms QRS Dur : 88 ms QT Int : 390 ms P-R-T Axes : 57 43 43 degrees QTcB Int : 408 ms Normal sinus rhythm Normal ECG Confirmed by KASSIDY BARRETO, JUNIOR ([id number]), technical editor JANINA OQUENDO ([id number]) on 07/09/2024 9:47:52 AM Referred By: Confirmed By: JUNIOR CHO MD 07/09/24 0947 Date Junior Cho MD CC: Dr. Juan Rivera, DO; POLLY VELASCO Signed Normal [facility] Basic Metabolic Profile (BMP )on 07-05-2024 BUN/CRE 12.4 RATIO Normal 10-20 [facility] Comment on above: Order Comment: 1Y Performed By: #### L 500.2500, L501.5425, L501.2450, L500.3400 ####[facility] [address] [place], [address] CA,Total 8.6 mg/dL Normal 8.5-10.1 [facility] Comment on above: Order Comment: 1Y Performed By: #### L 500.2500, L501.5425, L501.2450, L500.3400 ####[facility] [address] [place], [address] Chloride [Moles/Vol] 108 mmol/L High 98-107 [facility] Comment on above: Order Comment: 1Y Performed By: #### L 500.2500, L501.5425, L501.2450, L500.3400 ####[facility] [address] [place], [address] CO2 [Moles/Vol] 28.0 mmol/L Normal 21.0-32.0 [facility] Comment on above: Order Comment: 1Y Performed By: #### L 500.2500, L501.5425, L501.2450, L500.3400 ####[facility] [address] [place], [address] Creatinine [Mass/Vol] 0.72 mg/dL Normal 0.55-1.02 [facility] Comment on above: Order Comment: 1Y Result Comment: The validity of the calculated GFR GFRAA in patients over 70 years has not been determined. Clinical correlation is essential. Performed By: #### L 500.2500, L501.5425, L501.2450, L500.3400 ####[facility] [address] [place], [address] ECRCL 92.32 ml/min Normal [facility] Comment on above: Order Comment: 1Y Performed By: #### L 500.2500, L501.5425, L501.2450, L500.3400 ####[facility] [address] [place], [address] EST GFR - AA 109 mL/min Normal >60 [facility] Comment on above: Order Comment: 1Y Result Comment: Afri can Czech GFR Calc Performed By: #### L 500.2500, L501.5425, L501.2450, L500.3400 ####[facility] [address] [place], [address] GAP 2 Low 5-15 [facility] Comment on above: Order Comment: 1Y Performed By: #### L 500.2500, L501.5425, L501.2450, L500.3400 ####[facility] [address] [place], [address] GFR/1.73 sq M.predicted among non-blacks MDRD (S/P/Bld) [Vol rate/Area] 90 mL/min/{1.73_m2} Normal >60 [facility] Comment on above: Order Comment: 1Y Result Comment: Non- GFR Calc Performed By: #### L 500.2500, L501.5425, L501.2450, L500.3400 ####[facility] [address] [place], [address] Glucose [Mass/Vol] 92 mg/dL Normal 74-106 [facility] Comment on above: Order Comment: 1Y Performed By: #### L 500.2500, L501.5425, L501.2450, L500.3400 ####[facility] [address] [place], [address] Potassium [Moles/Vol] 3.9 mmol/L Normal 3.5-5.1 [facility] Comment on above: Order Comment: 1Y Performed By: #### L 500.2500, L501.5425, L501.2450, L500.3400 ####[facility] [address] [place], [address] Sodium [Moles/Vol] 138 mmol/L Normal 136-145 [facility] Comment on above: Order Comment: 1Y Performed By: #### L 500.2500, L501.5425, L501.2450, L500.3400 ####[facility] [address] [place], [address] Urea nitrogen [Mass/Vol] 9 mg/dL Normal 7-18 [facility] Comment on above: Order Comment: 1Y Performed By: #### L 500.2500, L501.5425, L501.2450, L500.3400 ####[facility] [address] [place], [address] CBC W/Diff, Automatedon 11-0 7-2024 Absolute Lymph 1.21 X10 3/uL Normal 0.83-4.51 [facility] Comment on above: Performed By: #### L 300.8000, L100.0100 #### [facility] [address] [place], [address] Absolute Neut 1.8 X10 3/uL Low 2.0-7.7 [facility] Comment on above: Performed By: #### L 300.8000, L100.0100 #### [facility] [address] [place], [address] Basophils/100 WBC (Bld) 0.6 % Normal 0-1 [facility] Comment on above: Performed By: #### L 300.8000, L100.0100 #### [facility] [address] [place], [address] Eosinophils/100 WBC (Bld) 1.2 % Normal 0-5 [facility] Comment on above: Performed By: #### L 300.8000, L100.0100 #### [facility] [address] [place], [address] Erythrocyte distribution width (RBC) [Ratio] 12.4 % Normal 11.6-14.6 [facility] Comment on above: Performed By: #### L 300.8000, L100.0100 #### [facility] [address] [place], [address] Hematocrit (Bld) [Volume fraction] 33.5 % Low 37-47 [facility] Comment on above: Performed By: #### L 300.8000, L100.0100 #### [facility] [address] [place], [address] Hemoglobin (Bld) [Mass/Vol] 10.9 g/dL Low 12.0-15.0 [facility] Comment on above: Performed By: #### L 300.8000, L100.0100 #### [facility] [address] [place], [address] IG% 0.300 Normal 0.0-0.9 [facility] Comment on above: Result Comment: IG% - Immature Granulocytes (promyelocytes, myelocytes and metamyelocytes) > 1% indicates that a LEFT SHIFT is Present. Performed By: #### L 300.8000, L100.0100 #### [facility] [address] [place], [address] Lymphocytes/100 WBC (Bld) 35.7 % Normal 19-41 [facility] Comment on above: Performed By: #### L 300.8000, L100.0100 #### [facility] [address] [place], [address] MCH (RBC) [Entitic mass] 30.4 pg Normal 27.0-32.0 [facility] Comment on above: Performed By: #### L 300.8000, L100.0100 #### [facility] [address] [place], [address] MCHC (RBC) [Mass/Vol] 32.5 g/dL Normal 32-36 [facility] Comment on above: Performed By: #### L 300.8000, L100.0100 #### [facility] [address] [place], [address] MCV (RBC) [Entitic vol] 93.3 fL Normal 81-99 [facility] Comment on above: Performed By: #### L 300.8000, L100.0100 #### [facility] [address] [place], [address] Monocytes/100 WBC (Bld) 10.0 % Normal 0-10 [facility] Comment on above: Performed By: #### L 300.8000, L100.0100 #### [facility] [address] [place], [address] Neutrophils/100 WBC (Bld) 52.2 % Normal 47-70 [facility] Comment on above: Performed By: #### L 300.8000, L100.0100 #### [facility] [address] [place], [address] Nucleated RBC (Bld) [#/Vol] 0 10*3/uL Normal 0-5 [facility] Comment on above: Performed By: #### L 300.8000, L100.0100 #### [facility] [address] [place], [address] Platelet mean volume (Bld) [Entitic vol] 9.9 fL Normal 6.2-12.0 [facility] Comment on above: Performed By: #### L 300.8000, L100.0100 #### [facility] [address] [place], [address] Platelets (Bld) [#/Vol] 201 10*3/uL Normal 150-450 [facility] Comment on above: Performed By: #### L 300.8000, L100.0100 #### [facility] [address] [place], [address] RBC (Bld) [#/Vol] 3.59 10*6/uL Low 4.2-5.4 [facility] Comment on above: Performed By: #### L 300.8000, L100.0100 #### [facility] [facility] [address] [place], [address] RDW SD 42.9 fl Normal 35.1-43.9 [facility] Comment on above: Performed By: #### L 300.8000, L100.0100 #### [facility] [address] [place], [address] WBC (Bld) [#/Vol] 3.4 10*3/uL Low 4.4-11.0 [facility] Comment on above: Performed By: #### L 300.8000, L100.0100 #### [facility] [address] [place], [place], [address] CTA Chest W/WO Contraston CTA Chest W/WO Contrast [facility] Imaging Services [address] [place] [address] CTA Chest W/WO Contrast MR#: [id number] Acct: [id number] Name: TISH BAE Rep #: [id number] : 1975 F 49 From: Joaquín bustamante MD PCP: POLLY VELASCO Status: REG ER Study: CTA Chest W/WO Contrast Date of Exam: 07/05/24 Exam# [id number] Ordering Dr: Juan Rivera DO [id number] STUDY: CTA CHEST REASON FOR EXAM: Female, 49 years old. pulmonary embolism, elevated d dimer RADIATION DOSAGE (If Supplied By Facility): CTDIvol = ( 8.75 ) mGy, DLP = ( 354.12 ) mGycm TECHNIQUE: The examination was performed with the intravenous administration of IV 100mL Isovue-370. Post-processing of the angiographic images was performed, with multiplanar reformation and 3D reconstruction. Individualized dose optimization techniques were used for this CT. COMPARISON: Comparison is made with prior chest regressed and narrowing the day and prior CT of the chest dated April 02, 2022. FINDINGS: Normal enhancement of the main pulmonary artery and right and left pulmonary arteries. Normal enhancement of the bilateral peripheral pulmonary arteries. There is no demonstrated pulmonary embolism. Normal thoracic aorta and visualized great vessels. There is no demonstrated aortic dissection. Normal heart and pericardium. There are small visualized mediastinal lymph nodes, which are within normal size limits, and with normal morphology. Normal hilar regions. Normal visualized trachea and bronchi. The lungs are well expanded. Mild degree of emphysematous changes and scarring at the lung apices with small bulla formation. Normal pleura. Normal chest wall structures. There are degenerative changes of thoracic spine. Small hiatal hernia. There is a 1.3 cm cyst in the dome of the right lobe of the liver. CT/CTA Chest W/WO Contrast IMPRESSION: No evidence of pulmonary embolism. Mild degree of emphysematous changes more pronounced in the upper lobes with bullous formation. Electronically Signed: Joaquín Bernstein MD at 12:16 EST , CC: Dr. Juan Rivera DO; POLLY VELASCO Graphite Grinder: Signed Normal [facility] Chest 1 View (Portable)on Chest 1 View (Portable) [facility] Imaging Services [address] [place] [address] Chest 1 View (Portable) MR#: [id number] Acct: [id number] Name: TISH BAE Rep #: [id number] : 1975 F 49 From: Joaquín bustamante MD PCP: Status: REG ER Study: Chest 1 View (Portable) Date of Exam: 07/05/24 Exam# [id number] Ordering Dr: Juan Rivera DO [id number] STUDY: X-RAY CHEST REASON FOR EXAM: Female, 49 years old. Chest pain TECHNIQUE: Single AP portable view of the chest. COMPARISON: Comparison is made with prior study November 05, 2023. FINDINGS: EKG electrodes are seen. The lungs are clear and expanded. There is no demonstrated pleural abnormality. Normal size heart. Normal mediastinum and jose. Normal visualized pulmonary arteries. Normal visualized aortic arch and descending thoracic aorta. Normal visualized thoracic spine. Normal visualized ribs, clavicles, and shoulders. There is no demonstrated abnormality of the visualized soft tissue structures of the upper abdomen. RAD/Chest 1 View (Portable) IMPRESSION: Normal x-ray examination of the chest. Electronically Signed: Joaquín Bernstein MD at 10:55 EST , CC: Dr. Juan Rivera DO Graphite Grinder: Signed Normal [facility] D-Dimer Quantitative (DVT/PE )on 07-05-2024 D-DIMER QUANT 0.63 FEU/ug/m Invalid Interpretation Code 0.27-0.49 [facility] Comment on above: Order Comment: CRITI JEFF VALUE CALLED TO SHAJI 07/05/24 1053 Petty Barragan. RESULTS READ BACK BY SAME. Result Comment: D-Di allegra ELEVATED (>0.49): Additional studies and clinical assessments are indicated to conclude diagnosis of: Deep Vein Thrombosis (DVT) or Pulmonary Embolism (PE) Performed By: #### L 300.8000, L100.0100 #### [facility] [address] [facility] [place], [address] Emergency Department Summary on 07-05-2024 Emergency Department Summary [facility] Medical Records Department [address] [place] [address] Emergency Department Summary 07/05/24 MR#: [id number] Acct: [id number] Name: TISH BAE Rep #: [id number] : 1975 49 From: Juan Rivera DO PCP: POLLY VELASCO Status:DEP ER Location: ED HPI History of Present Illness Chief Complaint: Chest Pain Informant: patient Narrative Narrative: 49-year-old female history of emphysema presenting to the emergency room with chest pressure. Patient states that at 7:00 this morning she was asleep and she was woken with lower chest pressure. She states it becomes sharp when she takes a deep breath. She denies any cough or fever. No vomiting. She notes discomfort left flank that she has had over several days. She states that she has had prior heart catheterization that was negative. She had similar symptoms at that time that led to the heart catheterization. [facility] Medical History Emphysema lung COPD (chronic obstructive pulmonary disease) Tobacco abuse Hypothyroid Fibromyalgia Depression Anxiety Home Medications ???Medication ???Instructions ???Recorded ???Last Taken ???Type buspirone 5 mg tablet 7.5 mg PO TID Mood 05/08/21 Unknown History fluoxetine 40 mg capsule 40 mg PO DAILY 05/08/21 Unknown History gabapentin 300 mg capsule 300 mg PO TID 05/08/21 Unknown History levothyroxine 88 mcg tablet 125 mcg PO DAILY 05/08/21 Unknown History aspirin 81 mg capsule 81 mg PO DAILY #30 caps 04/05/22 Unknown Rx cephalexin 500 mg capsule 500 mg PO BID #14 caps 07/13/23 Unknown Rx azithromycin 250 mg tablet 250 mg PO DAILY 4 days #4 tabs 11/05/23 Unknown Rx (Zithromax) Allergy/AdvReac Type Severity Reaction Status Date / Time No Known Allergies Allergy Verified 11/05/23 13:18 Surgical History History of hysterectomy Social History household members: family Smoking Status: Current every day smoker tobacco type: cigarettes alcohol intake: never substance use type: does not use ROS ROS ED Constitutional Constitutional ED: Denies chills, fever(s) or weight loss Eyes Eyes: Denies change in vision or diplopia ENT ENT ED: Denies ear pain, rhinorrhea or sore throat Cardiovascular Cardiovascular: Reports chest pain; Denies orthopnea, palpitations or racing heartbeat Respiratory/Chest Respiratory/Chest: Denies cough, dyspnea or orthopnea Gastrointestinal Gastrointestinal: Denies abdominal pain, diarrhea, nausea or vomiting Genitourinary Genitourinary ED: Denies dysuria, hematuria or urinary frequency Musculoskeletal Musculoskeletal: Reports other Details: Left flank pain ; Denies arthralgias or myalgias Integumentary Denies abscess or rash Neurologic Neurologic: Denies headache(s) or weakness Psychiatric Psychiatric: Denies anxiety, depression, suicidal ideation or suicidal thoughts Endocrine Endocrinology: Denies polydipsia, polyphagia or polyuria Allergic/Immunologic Allergic/Immunologic ED: Denies mouth swelling, tongue swelling or urticaria EXAM Physical Exam Const Vital Signs: 07/05/24 10:10 07/05/24 11:09 07/05/24 12:16 Temperature 98.1 F Temperature Source Oral Pulse Rate 68 61 Respiratory Rate 15 18 Blood Pressure 144/96 H 131/95 H 125/77 H Blood Pressure Mean 112 107 93 Pulse Ox 99 98 99 Oxygen Delivery Method Room Air Room Air 07/05/24 13:00 Temperature Temperature Source Pulse Rate 55 L Respiratory Rate 15 Blood Pressure 127/77 H Blood Pressure Mean 93 Pulse Ox 98 Oxygen Delivery Method Positive well nourished and well developed General Appearance ED: well developed HEENT Reports normocephalic, head/scalp atraumatic and moist mucous membranes Eyes PERRL and EOMs intact bilaterally Neck no lymphadenopathy, supple and no JVD Chest Wall Chest Narrative: Anterior lower chest wall is tender to palpation. It reproduces the sharp pain that the patient experiences. Mild tenderness in her epigastrium. Resp normal respiratory effort and clear to auscultation bilaterally Cardio regular rate, regular rhythm and no murmurs GI normal to inspection, nondistended, normoactive bowel sounds and non-tender Palpation: soft Back/Spine no CVA tenderness and normal ROM Extremity normal to inspection General Extremety ED: Negative for edema General Extremity: Negative for edema Neuro oriented x3 and CN's II-XII intact bilaterally Sensorium / Orientation: alert Motor Exam: strength 5/5 throughout Psych mental status grossly normal Mood Affect: Negative for depressed or tearful Skin no rashes or lesions noted and no wounds MD (more content not included)... Normal [facility] L501.4020on 07-05-2024 TROPONIN-I HS 6 pg/mL Normal 3.0-54.0 [facility] Comment on above: Result Comment: Plea se Note: New Test Units and Gender Specific Reference Ranges. For more information see Policy Stat Procedure [place] High Sensitivity Troponin (TNIH) and attachments. Performed By: #### L 501.4020 #### [facility] [address] [place], [address] TROPONIN-I HS 6 pg/mL Normal 3.0-54.0 [facility] Comment on above: Order Comment: 'TROP ' Serial specimen #1, #2 or #3: 2 Result Comment: Daisy buckley Note: New Test Units and Gender Specific Reference Ranges. For more information see Policy Stat Procedure [place] High Sensitivity Troponin (TNIH) and attachments. Performed By: #### L 501.4020 ####[facility] [address] [place], [address] L501.5425on 07-05-2024 TROPONIN-I HS 4 pg/mL Normal 3.0-54.0 [facility] Comment on above: Order Comment: 1Y Result Comment: Daisy buckley Note: New Test Units and Gender Specific Reference Ranges. For more information see Policy Stat Procedure [place] High Sensitivity Troponin (TNIH) and attachments. Performed By: #### L 500.2500, L501.5425, L501.2450, L500.3400 ####[facility] [address] [place], [address] Lipaseon 07-05-2024 Lipase [Catalytic activity/Vol] 15 U/L Normal 13-75 [facility] Comment on above: Order Comment: 1Y Result Comment: Daisy buckley note: LIPASE revised reference range effective 22. New Lipase methodology. Expected to produce lower values than the previous assay method. NEW Reference Range: 13 - 75 U/L Performed By: #### L 500.2500, L501.5425, L501.2450, L500.3400 ####[facility] [address] [place], [address] Liver Profileon 07-05-2024 Albumin [Mass/Vol] 3.1 g/dL Low 3.2-5.0 [facility] Comment on above: Order Comment: 1Y Performed By: #### L 500.2500, L501.5425, L501.2450, L500.3400 ####[facility] [address] [place], [address] ALK P 101 U/L Normal 45-117 [facility] Comment on above: Order Comment: 1Y Performed By: #### L 500.2500, L501.5425, L501.2450, L500.3400 ####[facility] [address] [place], [address] ALT [Catalytic activity/Vol] 15 U/L Normal 13-56 [facility] Comment on above: Order Comment: 1Y Performed By: #### L 500.2500, L501.5425, L501.2450, L500.3400 ####[facility] [address] [place], [address] AST [Catalytic activity/Vol] 17 U/L Normal 15-37 [facility] Comment on above: Order Comment: 1Y Performed By: #### L 500.2500, L501.5425, L501.2450, L500.3400 ####[facility] [address] [place], [address] Bilirubin [Mass/Vol] 0.50 mg/dL Normal 0.20-1.00 [facility] Comment on above: Order Comment: 1Y Result Comment: For patients on eltrombopag therapy, use of Dimension [place] TBIL is not recommended. Performed By: #### L 500.2500, L501.5425, L501.2450, L500.3400 ####[facility] [address] [place], [address] Bilirubin.direct [Mass/Vol] 0.14 mg/dL Normal 0.00-0.30 [facility] Comment on above: Order Comment: 1Y Performed By: #### L 500.2500, L501.5425, L501.2450, L500.3400 ####[facility] [address] [place], [address] Globulin (S) [Mass/Vol] 4.1 g/dL Normal 2.2-4.2 [facility] Comment on above: Order Comment: 1Y Performed By: #### L 500.2500, L501.5425, L501.2450, L500.3400 ####[facility] [address] [place], [address] T PROT 7.2 g/dL Normal 6.4-8.2 [facility] Comment on above: Order Comment: 1Y Performed By: #### L 500.2500, L501.5425, L501.2450, L500.3400 ####[facility] [address] [place], [address] Urinalysis, Completeon 07-05 EPI,SQUAMOUS 0-5 SEEN Normal 5-10 [facility] Comment on above: Order Comment: CLEAN CATCH Performed By: #### L 400.0001 ####[facility] [address] [place], [address] BACTERIA 0 SEEN Normal None Seen [facility] Comment on above: Order Comment: CLEAN CATCH Performed By: #### L 400.0001 ####[facility] [address] [place], [address] Mucus Ql (Urine sed) 0 SEEN Normal [facility] Comment on above: Order Comment: CLEAN CATCH Performed By: #### L 400.0001 ####[facility] [address] [place], [address] RBC 0 SEEN Normal 0-5 [facility] Comment on above: Order Comment: CLEAN CATCH Performed By: #### L 400.0001 ####[facility] [address] [place], [address] WBC 0 SEEN Normal 0-5 [facility] Comment on above: Order Comment: CLEAN CATCH Performed By: #### L 400.0001 ####[facility] [address] [place], [address] Abdomen/Pel W ORAL Cont Only on 11-05-2023 Abdomen/Pel W ORAL Cont Only [facility] Imaging Services [address] [place] [address] Abdomen/Pel W ORAL Cont Only MR#: [id number] Acct: [id number] Name: TISH BAE Rep #: [id number] : 1975 F 48 From: Cruz espinoza MD PCP: Care Physician,No Primary Status: DEP ER Study: Abdomen/Pel W ORAL Cont Only Date of Exam: 05/22 Exam# [id number] Ordering Dr: Adele Higgins DO [id number] STUDY: CT ABDOMEN AND PELVIS WITHOUT CONTRAST REASON FOR EXAM: Female, 48 years old. abdominal pain RADIATION DOSAGE (If Supplied By Facility): CTDIvol = ( 9.95 ) mGy, DLP = ( 502.10 ) mGycm TECHNIQUE: Transaxial images were obtained from the dome of the diaphragm to the symphysis pubis without oral contrast, and without intravenous contrast. Sagittal and coronal images were reconstructed. Individualized dose optimization techniques were used for this CT. COMPARISON: Same day, 3:59 PM. FINDINGS: Since the exam of 3 hours earlier, patient was given oral contrast. There is no contrast however in the stomach duodenum or proximal small bowel, which are otherwise unremarkable. The mid to distal small bowel is normal in appearance and caliber. Contrast has reached the right colon and hepatic flexure which are filled with stool and otherwise unremarkable. A small amount of contrast is seen in the appendix which is normal, as indicated on the prior study. No evidence of appendicitis, obstruction, or GI abnormality. No other changes or additional findings since exam of 3 hours earlier. Again noted are abnormalities in both posterior lung bases. CT/Abdomen/Pel W ORAL Cont Only IMPRESSION: Normal appendix. Note that this was also specifically reported on the prior report. No other changes or additional findings since exam of 3 hours earlier. Electronically Signed: Cruz Shea MD at 19:42 EST , CC: Dr. Adele Higgins, DO; No Primary Care Physician Graphite Grinder: Signed Normal [facility] Abdomen/Pelvis W IV Cont ONL Yon 11-05-2023 Abdomen/Pelvis W IV Cont ONLY [facility] Imaging Services [address] [place] [address] Abdomen/Pelvis W IV Cont ONLY MR#: [id number] Acct: [id number] Name: TISH BAE Rep #: [id number] : 1975 F 48 From: Sabrina Horvath MD PCP: Care Physician,No Primary Status: REG ER Study: Abdomen/Pelvis W IV Cont ONLY Date of Exam: Exam# [id number] Ordering Dr: Nemesio Rush MD [id number] STUDY: CT ABDOMEN AND PELVIS WITH CONTRAST - URINARY TRACT REASON FOR EXAM: Female, 48 years old. Right sided abd pain RADIATION DOSAGE (If Supplied By Facility): CTDIvol = ( 18.26 ) mGy, DLP = ( 858.41 ) mGycm TECHNIQUE: IV 100mL Isovue-370 was administered. Transaxial images were obtained from the dome of the diaphragm to the symphysis pubis subsequent to intravenous contrast administration. Multiplanar coronal and sagittal images were reformatted. Individualized Dose Optimization Techniques Were Used For This CT. COMPARISON: Ultrasound dated November 05, [address] of the chest dated April 02, 2022 FINDINGS: There are small bilateral pleural effusions associated with lower lobe consolidation. The visualized portions of the heart are within normal limits. The liver is diffusely low in attenuation consistent with fatty infiltration. There are scattered well-circumscribed round low-attenuation foci which may reflect cysts and/or hemangiomas. Normal gallbladder and extrahepatic biliary system. Normal spleen. Normal pancreas. Normal bilateral adrenal glands. Normal visualized stomach. Normal small intestine. Normal colon. The appendix is visualized and appears normal. There is diffuse atherosclerotic calcification of the abdominal aorta, without a demonstrated aneurysm. No retroperitoneal adenopathy. Normal right kidney. There are too small to characterize low-attenuation foci within the left kidney which may reflects cysts. Normal urinary bladder. There is minimal free fluid within the pelvis which may be physiologic. Normal abdominal wall. Normal osseous structures. CT/Abdomen/Pelvis W IV Cont ONLY IMPRESSION: Fatty infiltration of the liver. Small bilateral pleural effusions associated with lower lobe dependent consolidation. Atherosclerosis. Electronically Signed: Sabrina Horvath MD at 16:24 EST , CC: Dr. Nemesio Rush MD; No Primary Care Physician Graphite Grinder: Signed Normal [facility] Absolute lymphocyte countOrd ered By: Nemesio Rush on 11-05-2023 Lymphocytes Auto (Unsp spec) [#/Vol] 2.09 10*3/uL 0.83-4.51 [facility] Automated lymphocyte count a s percentage of total leukocytesOrdered By: Nemesio Rush on 11-05-2023 Lymphocytes/100 WBC Auto (Unsp spec) 23.9 % 19-41 [facility] Basophil percentageOrdered B y: Nemesio Rush on 11-05-2023 Basophil percentage 5-10 SEEN /hpf 0-5 [facility] Basophils/100 WBC (Bld) 1.0 % 0-1 [facility] Bilirubin [Mass/Vol] 0.60 mg/dL 0.20-1.00 [facility] Comment on above: For patients on eltr ombopag therapy, use of Dimension [place] TBIL is not recommended. Chloride [Moles/Vol] 104 mmol/L 98-107 [facility] Eosinophils/100 WBC (Bld) 0.7 % 0-5 [facility] Glucose [Mass/Vol] 94 mg/dL 74-106 [facility] Hemoglobin (Bld) [Mass/Vol] 12.4 g/dL 12.0-15.0 [facility] Monocytes/100 WBC (Bld) 6.6 % 0-10 [facility] Neutrophils (Bld) [#/Vol] 5.9 10*3/uL 2.0-7.7 [facility] Neutrophils/100 WBC (Bld) 66.9 % 47-70 [facility] Potassium [Moles/Vol] 4.0 mmol/L 3.5-5.1 [facility] Protein [Mass/Vol] 8.6 g/dL 6.4-8.2 [facility] Sodium [Moles/Vol] 138 mmol/L 136-145 [facility] WBC (Bld) [#/Vol] 8.8 10*3/uL 4.4-11.0 [facility] Bilirubin Test strip Ql (U)O rdered By: Nemesio Rush on 11-05-2023 Bilirubin Ql (U) Negative Negative [facility] CBC W/Diff, Automatedon Absolute Lymph 2.09 X10 3/uL Normal 0.83-4.51 [facility] Comment on above: Performed By: #### L 100.0100, L501.2450, L500.4050 #### [facility] [address] [place], [address] Absolute Neut 5.9 X10 3/uL Normal 2.0-7.7 [facility] Comment on above: Performed By: #### L 100.0100, L501.2450, L500.4050 #### [facility] [address] [place], [address] Basophils/100 WBC (Bld) 1.0 % Normal 0-1 [facility] Comment on above: Performed By: #### L 100.0100, L501.2450, L500.4050 #### [facility] [address] [place], [address] Eosinophils/100 WBC (Bld) 0.7 % Normal 0-5 [facility] Comment on above: Performed By: #### L 100.0100, L501.2450, L500.4050 #### [facility] [address] [place], [address] Erythrocyte distribution width (RBC) [Ratio] 13.6 % Normal 11.6-14.6 [facility] Comment on above: Performed By: #### L 100.0100, L501.2450, L500.4050 #### [facility] [address] [place], [address] Hematocrit (Bld) [Volume fraction] 38.4 % Normal 37-47 [facility] Comment on above: Performed By: #### L 100.0100, L501.2450, L500.4050 #### [facility] [address] [place], [address] Hemoglobin (Bld) [Mass/Vol] 12.4 g/dL Normal 12.0-15.0 [facility] Comment on above: Performed By: #### L 100.0100, L501.2450, L500.4050 #### [facility] [address] [place], [address] IG% 0.900 Normal 0.0-0.9 [facility] Comment on above: Result Comment: IG% - Immature Granulocytes (promyelocytes, myelocytes and metamyelocytes) > 1% indicates that a LEFT SHIFT is Present. Performed By: #### L 100.0100, L501.2450, L500.4050 #### [facility] [address] [place], [address] Lymphocytes/100 WBC (Bld) 23.9 % Normal 19-41 [facility] Comment on above: Performed By: #### L 100.0100, L501.2450, L500.4050 #### [facility] [address] [place], [address] MCH (RBC) [Entitic mass] 30.3 pg Normal 27.0-32.0 [facility] Comment on above: Performed By: #### L 100.0100, L501.2450, L500.4050 #### [facility] [address] [place], [address] MCHC (RBC) [Mass/Vol] 32.3 g/dL Normal 32-36 [facility] Comment on above: Performed By: #### L 100.0100, L501.2450, L500.4050 #### [facility] [address] [place], [address] MCV (RBC) [Entitic vol] 93.9 fL Normal 81-99 [facility] Comment on above: Performed By: #### L 100.0100, L501.2450, L500.4050 #### [facility] [address] [place], [address] Monocytes/100 WBC (Bld) 6.6 % Normal 0-10 [facility] Comment on above: Performed By: #### L 100.0100, L501.2450, L500.4050 #### [facility] [address] [place], [place], [id number] Neutrophils/100 WBC (Bld) 66.9 % Normal 47-70 [facility] Comment on above: Performed By: #### L 100.0100, L501.2450, L500.4050 #### [facility] [address] [place], [address] Nucleated RBC (Bld) [#/Vol] 0 10*3/uL Normal 0-5 [facility] Comment on above: Performed By: #### L 100.0100, L501.2450, L500.4050 #### [facility] [address] [place], [address] Platelet mean volume (Bld) [Entitic vol] 11.3 fL Normal 6.2-12.0 [facility] Comment on above: Performed By: #### L 100.0100, L501.2450, L500.4050 #### [facility] [address] [place], [address] Platelets (Bld) [#/Vol] 224 10*3/uL Normal 150-450 [facility] Comment on above: Performed By: #### L 100.0100, L501.2450, L500.4050 #### [facility] [address] [place], [address] RBC (Bld) [#/Vol] 4.09 10*6/uL Low 4.2-5.4 [facility] Comment on above: Performed By: #### L 100.0100, L501.2450, L500.4050 #### [facility] [address] [place], [address] RDW SD 46.5 fl High 35.1-43.9 [facility] Comment on above: Performed By: #### L 100.0100, L501.2450, L500.4050 #### [facility] [address] [place], [address] WBC (Bld) [#/Vol] 8.8 10*3/uL Normal 4.4-11.0 [facility] Comment on above: Performed By: #### L 100.0100, L501.2450, L500.4050 #### [facility] [address] [place], [address] Chest PA and Lateralon 11-04 Chest PA and Lateral [facility] Imaging Services [address] [place] [address] Chest PA and Lateral MR#: [id number] Acct: [id number] Name: TISH BAE Rep #: [id number] : 1975 F 48 From: Sabrina Horvath MD PCP: Care Physician,No Primary Status: REG ER Study: Chest PA and Lateral Date of Exam: 11/05/23 Exam# [id number] Ordering Dr: Nemesio Rush MD [id number] INDICATION: Shortness of breath EXAMINATION/TECHNIQUE: X-RAY - XR Chest 2 Views COMPARISON: July 13, 2023 FINDINGS: LINES/DEVICES: None. LUNGS: There is blunting of the costophrenic angles visualized on the lateral image. No pneumothorax. MEDIASTINUM AND CARDIOVASCULAR STRUCTURES: Cardiac silhouette not enlarged. Central airways and mediastinal contour are unremarkable. BONES AND SOFT TISSUES: Unremarkable. RAD/Chest PA and Lateral IMPRESSION: Blunting of the costophrenic angles, may be secondary to pleural thickening or small effusions. Electronically Signed: Sabrina Horvath MD at 14:56 EST , CC: Dr. Nemesio Rush MD; No Primary Care Physician Graphite Grinder: Signed Normal [facility] Comprehensive Metabolic Prof ilon 11-05-2023 Albumin [Mass/Vol] 3.5 g/dL Normal 3.2-5.0 [facility] Comment on above: Performed By: #### L 100.0100, L501.2450, L500.4050 #### [facility] [address] [place], [address] Albumin/Globulin [Mass ratio] 0.7 {ratio} Low 0.9-2.4 [facility] Comment on above: Performed By: #### L 100.0100, L501.2450, L500.4050 #### [facility] [address] [place], [address] ALK P 98 U/L Normal 45-117 [facility] Comment on above: Performed By: #### L 100.0100, L501.2450, L500.4050 #### [facility] [address] [place], [address] ALT [Catalytic activity/Vol] 20 U/L Normal 13-56 [facility] Comment on above: Performed By: #### L 100.0100, L501.2450, L500.4050 #### [facility] [address] [place], [address] AST [Catalytic activity/Vol] 21 U/L Normal 15-37 [facility] Comment on above: Performed By: #### L 100.0100, L501.2450, L500.4050 #### [facility] [address] [place], [address] Bilirubin [Mass/Vol] 0.60 mg/dL Normal 0.20-1.00 [facility] Comment on above: Result Comment: For patients on eltrombopag therapy, use of Dimension [place] TBIL is not recommended. Performed By: #### L 100.0100, L501.2450, L500.4050 #### [facility] [address] [place], [address] BUN/CRE 9.7 RATIO Low 10-20 [facility] Comment on above: Performed By: #### L 100.0100, L501.2450, L500.4050 #### [facility] [address] [place], [address] CA,Total 9.1 mg/dL Normal 8.5-10.1 [facility] Comment on above: Performed By: #### L 100.0100, L501.2450, L500.4050 #### [facility] [address] [place], [address] Chloride [Moles/Vol] 104 mmol/L Normal 98-107 [facility] Comment on above: Performed By: #### L 100.0100, L501.2450, L500.4050 #### [facility] [address] [place], [address] CO2 [Moles/Vol] 30.0 mmol/L Normal 21.0-32.0 [facility] Comment on above: Performed By: #### L 100.0100, L501.2450, L500.4050 #### [facility] [address] [place], [address] Creatinine [Mass/Vol] 0.83 mg/dL Normal 0.55-1.02 [facility] Comment on above: Result Comment: The validity of the calculated GFR GFRAA in patients over 70 years has not been determined. Clinical correlation is essential. Performed By: #### L 100.0100, L501.2450, L500.4050 #### [facility] [address] [place], [address] ECRCL 81.13 ml/min Normal [facility] Comment on above: Performed By: #### L 100.0100, L501.2450, L500.4050 #### [facility] [address] [place], [address] EST GFR - AA 94 mL/min Normal >60 [facility] Comment on above: Result Comment: Afri can Czech GFR Calc Performed By: #### L 100.0100, L501.2450, L500.4050 #### [facility] [address] [place], [address] GAP 4 Low 5-15 [facility] Comment on above: Performed By: #### L 100.0100, L501.2450, L500.4050 #### [facility] [address] [place], [address] GFR/1.73 sq M.predicted among non-blacks MDRD (S/P/Bld) [Vol rate/Area] 78 mL/min/{1.73_m2} Normal >60 [facility] Comment on above: Result Comment: Non- GFR Calc Performed By: #### L 100.0100, L501.2450, L500.4050 #### [facility] [address] [place], [address] Globulin (S) [Mass/Vol] 5.1 g/dL High 2.2-4.2 [facility] Comment on above: Performed By: #### L 100.0100, L501.2450, L500.4050 #### [facility] [address] [place], [address] Glucose [Mass/Vol] 94 mg/dL Normal 74-106 [facility] Comment on above: Performed By: #### L 100.0100, L501.2450, L500.4050 #### [facility] [address] [place], [address] Potassium [Moles/Vol] 4.0 mmol/L Normal 3.5-5.1 [facility] Comment on above: Performed By: #### L 100.0100, L501.2450, L500.4050 #### [facility] [address] [place], [address] Sodium [Moles/Vol] 138 mmol/L Normal 136-145 [facility] Comment on above: Performed By: #### L 100.0100, L501.2450, L500.4050 #### [facility] [address] [place], [address] T PROT 8.6 g/dL High 6.4-8.2 [facility] Comment on above: Performed By: #### L 100.0100, L501.2450, L500.4050 #### [facility] [address] [place], [address] Urea nitrogen [Mass/Vol] 8 mg/dL Normal 7-18 [facility] Comment on above: Performed By: #### L 100.0100, L501.2450, L500.4050 #### [facility] [address] [place], [address] Determination of erythrocyte mean corpuscular volume (MCV)Ordered By: Nemesio Rush on 11-05-2023 MCV (RBC) [Entitic vol] 93.9 fL 81-99 [facility] Emergency Department Summary on 11-05-2023 Emergency Department Summary [facility] Medical Records Department [address] [place] [address] Emergency Department Summary 11/05/23 MR#: [id number] Acct: [id number] Name: TISH BAE Rep #: [id number] : 1975 48 From: Nemesio Rush MD PCP: Care Physician,No Primary Status:DEP ER Location: ED HPI HPI - GI History of Present Illness Chief Complaint: Abd Pain Informant: patient Abdominal Pain/Flank Pain Onset: Yesterday Context: Sudden Onset Timing: Continuous Quality: Aching Location: RUQ Current Severity: Severe Maximum Severity: Severe Worsened by: - (breathing, lying back/supine) Nausea/Vomiting/Emesis GI Symptom: Negative for Nausea or Vomiting Diarrhea/Melena/Hemato chezia GI Symptom: Negative for Diarrhea, Melena or Hematochezia Associated Symptoms Associated Symptoms: Negative for Dysuria, Frequency, Hematuria or Urgency Narrative Narrative: Patient was relatively sudden onset of pain yesterday she states that seem to start when she stood up at 1 point, it has been persistent but did not become this severe until today, which was more gradual. It hurts a lot to breathe, even if shallow, making her feel short of breath. She denies any nausea or vomiting or known association with food, but she points to her right upper quadrant and states that it wraps around to her right flank. History of a hysterectomy no other abdominal surgeries in the past. No history of DVT or PE. She denies any recent cough. She denies any discomfort up in her chest. The pain radiates to her right shoulder, however. Lying down makes it hurt worse. No recent long travel or immobilization or travel out of the area, no recent hospitalization or surgeries, no leg pain or swelling. [facility] Medical History (Updated 11/05/23 @ 19:[address] Adele Higgins DO) Anxiety COPD (chronic obstructive pulmonary disease) Depression Emphysema lung Fibromyalgia Hypothyroid Tobacco abuse Home Medications buspirone 5 mg tablet 7.5 mg PO TID Mood 05/08/21 [History Last Taken Unknown] fluoxetine 40 mg capsule 40 mg PO DAILY 05/08/21 [History Last Taken Unknown] gabapentin 300 mg capsule 300 mg PO TID 05/08/21 [History Last Taken Unknown] levothyroxine 88 mcg tablet 125 mcg PO DAILY 05/08/21 [History Last Taken Unknown] aspirin 81 mg capsule 81 mg PO DAILY #30 caps 04/05/22 [Rx Last Taken Unknown] cephalexin 500 mg capsule 500 mg PO BID #14 caps 07/13/23 [Rx Last Taken Unknown] azithromycin 250 mg tablet (Zithromax) 250 mg PO DAILY 4 days #4 tabs 11/05/23 [Rx Last Taken Unknown] Allergy/AdvReac Type Severity Reaction Status Date / Time No Known Allergies Allergy Verified 11/05/23 13:18 Surgical History (Updated 11/05/23 @ 13:[address] Nemesio Rush MD) History of hysterectomy Social History household members: family Smoking Status: Current every day smoker tobacco type: cigarettes alcohol intake: never substance use type: does not use ROS ROS ED Constitutional Constitutional ED: Denies chills or fever(s) Eyes Eyes: Denies change in vision or diplopia ENT ENT ED: Denies rhinorrhea or sore throat Cardiovascular Cardiovascular: Denies chest pain or palpitations Respiratory/Chest Respiratory/Chest: Reports dyspnea; Denies cough Gastrointestinal Gastrointestinal: Reports abdominal pain; Denies diarrhea, melena, nausea or vomiting Genitourinary Genitourinary ED: Denies dysuria or hematuria Musculoskeletal Musculoskeletal: Reports back pain; Denies neck pain Integumentary Denies abscess or rash Neurologic Neurologic: Denies headache(s), paresthesias or weakness Psychiatric Psychiatric: Denies depression or suicidal thoughts EXAM Physical Exam Const Vital Signs: 11/05/23 13:19 11/05/23 19:55 Temperature 97.8 F 97.6 F L Temperature Source Temporal Pulse Rate 98 87 Respiratory Rate 14 18 Blood Pressure 141/109 H 135/91 H Blood Pressure Mean 119 105 Pulse Ox 97 99 Oxygen Delivery Method Room Air Positive well nourished and well developed Constitutional Narrative: In painful distress no respiratory distress, but due to pleuritic nature of discomfort speaking in 3-5 word sentences softly. General Appearance ED: well developed HEENT Reports moist mucous membranes normocephalic and atraumatic Eyes PERRL and EOMs intact bilaterally Neck full ROM, supple and no JVD Resp clear to auscultation bilaterally Resp Narrative: Tachypnea and splinting but no respiratory distress Cardio regular rate, regular rhythm and no murmurs GI non-distended GI Narrative: Very tender in the right upper quadrant with positive Palomo. No other areas of abdominal tenderness. Auscultation: normoactive bowel sounds Palpation: soft Back/Spine General Back: CVA (more content not included)... Normal [facility] Erythrocyte distribution wid th ratioOrdered By: Nemesio Rush on 11-05-2023 Erythrocyte distribution width (RBC) [Ratio] 13.6 % 11.6-14.6 [facility] Erythrocyte distribution wid th standard deviationOrdered By: Nemesio Rush on 11-05-2023 Erythrocyte distribution width (RBC) [Entitic vol] 46.5 fL 35.1-43.9 [facility] Gallbladderon 11-05-2023 Gallbladder [facility] Imaging Services [address] [place] [address] Gallbladder MR#: [id number] Acct: [id number] Name: TISH BAE Rep #: [id number] : 1975 F 48 From: Sabrina Horvath MD PCP: Care Physician,No Primary Status: REG ER Study: Gallbladder Date of Exam: 11/05/23 Exam# [id number] Ordering Dr: Nemesio Rush MD [id number] Examination: Right upper quadrant abdominal ultrasound. INDICATION: Right upper quadrant pain. TECHNIQUE: A dedicated right upper quadrant ultrasound of the abdomen was obtained including Doppler imaging. The examination is limited secondary to overlying bowel gas and patient''s inability to tolerate the examination. COMPARISON: None FINDINGS: The liver is diffusely echogenic consistent with fatty infiltration. There are stones and/or sludge within the gallbladder that is poorly visualized. There is no pericholecystic fluid nor gallbladder wall thickening. There is a positive reported sonographic Palomo''s sign. The common bile duct measures 4.7 mm. The visualized pancreas is within normal limits. The right kidney measures 11.3 cm in length and is within normal limits. US/Gallbladder IMPRESSION: Fatty infiltration of the liver. Cholelithiasis and/or sludge within the gallbladder with a reported positive sonographic Palomo''s sign and no pericholecystic fluid nor gallbladder wall thickening. Electronically Signed: Sabrina Horvath MD at 15:09 EST , CC: Dr. Nemesio Rush MD; No Primary Care Physician Graphite Grinder: Signed Normal [facility] Hematocrit Auto (Bld) [Volum e fraction]Ordered By: Nemesio Rush on 11-05-2023 Hematocrit (Bld) [Volume fraction] 38.4 % 37-47 [facility] Immature granulocytes/100 WB C Auto (Bld)Ordered By: Nemesio Rush on 11-05-2023 Immature granulocytes/100 WBC (Bld) 0.900 % 0.0-0.9 [facility] Comment on above: IG% - Immature Granu locytes (promyelocytes, myelocytes and metamyelocytes) > 1% indicates that a LEFT SHIFT is Present. Ketones Test strip Ql (U)Ord ered By: Nemesio Rush on 11-05-2023 Ketones Ql (U) 5 mg/dl Negative [facility] - Chemistry and C hemistry - challengeOrdered By: Nemesio Rush on 11-05-2023 Albumin/Globulin [Mass ratio] 0.7 {ratio} 0.9-2.4 [facility] ALP [Catalytic activity/Vol] 98 U/L 45-117 [facility] ALT [Catalytic activity/Vol] 20 U/L 13-56 [facility] CO2 [Moles/Vol] 30.0 mmol/L 21.0-32.0 [facility] Globulin (S) [Mass/Vol] 5.1 g/dL 2.2-4.2 [facility] Lipase [Catalytic activity/Vol] 12 U/L 13-75 [facility] Comment on above: Please note:LIPASE r evised reference range effective 22. New Lipase methodology. Expected to produce lower values than the previous assay method. NEW Reference Range: 13 - 75 U/L Urea nitrogen/Creatinine [Mass ratio] 9.7 mg/mg 10-20 [facility] - Hematology and Cell countsOrdered By: Nemesio Rush on 11-05-2023 MCH (RBC) [Entitic mass] 30.3 pg 27.0-32.0 [facility] MCHC (RBC) [Mass/Vol] 32.3 g/dL 32-36 [facility] Nucleated RBC/100 WBC (Bld) [Ratio] 0 % 0-5 [facility] Platelet mean volume (Bld) [Entitic vol] 11.3 fL 6.2-12.0 [facility] Platelets (Bld) [#/Vol] 224 10*3/uL 150-450 [facility] Lipaseon 11-05-2023 Lipase [Catalytic activity/Vol] 12 U/L Low 13-75 [facility] Comment on above: Result Comment: Plea se note: LIPASE revised reference range effective 22. New Lipase methodology. Expected to produce lower values than the previous assay method. NEW Reference Range: 13 - 75 U/L Performed By: #### L 100.0100, L501.2450, L500.4050 ####[facility] [address] [place], [address] Mucus LM Ql (Urine sed)Order ed By: Nemesio Rush on 11-05-2023 Mucus Ql (Urine sed) 0 SEEN /hpf [facility] Nitrite Test strip Ql (U)Ord ered By: Nemesio Rush on 03-09-2024 Nitrite Ql (U) Negative Negative [facility] No Panel InformationOrdered By: Nemesio Rush on 11-05-2023 Urine RBC 5-10 SEEN /hpf 0-5 [facility] Estimated Creatinine Clearance Calc 81.13 ml/min [facility] Estimated GFR (MDRD) Amer 94 mL/min >60 [facility] Comment on above: GFR Calc Estimated GFR (MDRD) Non-Af Amer 78 mL/min >60 [facility] Comment on above: Non- GFR Calc Protein Test strip Ql (U)Ord ered By: Nemesio Rush on 11-05-2023 Protein Ql (U) 15 mg/dl Negative [facility] RBC Auto (Bld) [#/Vol]Ordere d By: Nemesio Rush on 11-05-2023 RBC (Bld) [#/Vol] 4.09 10*6/uL 4.2-5.4 [facility] Serum or plasma calcium alex urement (mass/volume)Ordered By: Nemesio Rush on 11-05-2023 Calcium [Mass/Vol] 9.1 mg/dL 8.5-10.1 [facility] Serum or plasma creatinine m easurement (mass/volume)Ordered By: Nemesio Rush on 11-05-2023 Creatinine [Mass/Vol] 0.83 mg/dL 0.55-1.02 [facility] Comment on above: The validity of the calculated GFR & GFRAA in patients over 70 years has not been determined. Clinical correlation is essential. Serum or plasma urea nitroge n measurement (mass/volume)Ordered By: Nemesio Rush on 11-05-2023 Urea nitrogen [Mass/Vol] 8 mg/dL 7-18 [facility] Squamous epithelial cells de tection in urine sediment by light microscopyOrdered By: Nemesio Rush on 11-05-2023 Epithelial cells.squamous LM Ql (Urine sed) 5-10 SEEN /hpf 5-10 [facility] Thin prep Papanicolaou smear with manual screeningOrdered By: Nemesio Rush on 11-05-2023 Thin prep Papanicolaou smear with manual screening 3.5 g/dL 3.2-5.0 [facility] Thin prep Papanicolaou smear with manual screening 21 U/L 15-37 [facility] Thin prep Papanicolaou smear with manual screening 4 5-15 [facility] Urinalysis, Completeon 11-04 BACTERIA 1+ /hpf Normal None Seen [facility] Comment on above: Order Comment: JULI CTOR TO SPECIFY Performed By: #### L 400.0001 #### [facility] [address] [place], [address] EPI,SQUAMOUS 5-10 SEEN Normal 5-10 [facility] Comment on above: Order Comment: JULI CTOR TO SPECIFY Performed By: #### L 400.0001 #### [facility] [address] [place], [address] RBC 5-10 SEEN Normal 0-5 [facility] Comment on above: Order Comment: JULI CTOR TO SPECIFY Performed By: #### L 400.0001 #### [facility] [address] [place], [address] WBC 5-10 SEEN Normal 0-5 [facility] Comment on above: Order Comment: JULI CTOR TO SPECIFY Performed By: #### L 400.0001 #### [facility] [address] [place], [address] Mucus Ql (Urine sed) 0 SEEN Normal [facility] Comment on above: Order Comment: JULI CTOR TO SPECIFY Performed By: #### L 400.0001 #### [facility] [address] [place], [address] Urine blood detectionOrdered By: Nemesio Rush on 11-05-2023 RBC Ql (U) 50 /ul Negative [facility] Urine clarityOrdered By: Jonas Rsuh on 11-05-2023 Clarity (U) Clear Clear [facility] Urine color determinationOrd ered By: Nemesio Rush on 11-05-2023 Color (U) Yellow Yellow [facility] Urine glucose detectionOrder ed By: Nemesio Rush on 11-05-2023 Glucose Ql (U) Normal mg/dl Normal [facility] Urine leukocyte esterase det ection by dipstickOrdered By: Nemesio Rush on 11-05-2023 Leukocyte esterase Test strip Ql (U) 25 /ul Negative [facility] Urine pHOrdered By: Nemesio Rush on 11-05-2023 pH (U) 7.0 [pH] 5.0 - 8.0 [facility] Urine sediment bacteria coun t by microscopy (number/high power field)Ordered By: Nemesio Rush on 11-05-2023 Bacteria LM.HPF (Urine sed) [#/Area] 1 /[HPF] None Seen [facility] Urine specific gravity measu rementOrdered By: Nemesio Rush on 11-05-2023 Specific gravity (U) [Rel density] 1.010 1.002-1.030 [facility] Urine urobilinogen measureme ntOrdered By: Nemesio Rush on 11-05-2023 Urobilinogen Ql (U) Normal mg/dl Normal [facility] Absolute lymphocyte countOrd ered By: Denis Vaca on 07-13-2023 Lymphocytes Auto (Unsp spec) [#/Vol] 2.42 10*3/uL 0.83-4.51 [facility] Basophil percentageOrdered B y: Denis Vaca on 07-13-2023 Basophil percentage 10-25 SEEN /hpf 0-5 [facility] Basophils/100 WBC (Bld) 1.7 % 0-1 [facility] Bilirubin [Mass/Vol] 0.30 mg/dL 0.20-1.00 [facility] Comment on above: For patients on eltr ombopag therapy, use of Dimension [place] TBIL is not recommended. Chloride [Moles/Vol] 105 mmol/L 98-107 [facility] Eosinophils/100 WBC (Bld) 2.0 % 0-5 [facility] Glucose [Mass/Vol] 114 mg/dL 74-106 [facility] Comment on above: Fasting Glucose resu lt from 100 to 125 mg/dL suggests IMPAIRED HOMEOSTASIS per A.D.A. criteria. Neutrophils (Bld) [#/Vol] 3.4 10*3/uL 2.0-7.7 [facility] Neutrophils/100 WBC (Bld) 51.5 % 47-70 [facility] Potassium [Moles/Vol] 3.9 mmol/L 3.5-5.1 [facility] Comment on above: Slight Hemolysis, Re sult may be falsely increased. Protein [Mass/Vol] 8.2 g/dL 6.4-8.2 [facility] Sodium [Moles/Vol] 139 mmol/L 136-145 [facility] WBC (Bld) [#/Vol] 6.5 10*3/uL 4.4-11.0 [facility] Bilirubin Test strip Ql (U)O rdered By: Denis Vaca on 07-13-2023 Bilirubin Ql (U) Negative Negative [facility] [facility] Blood erythrocytes count (nu mber/volume)Ordered By: Denis Vaca on 07-13-2023 RBC (Bld) [#/Vol] 4.12 10*6/uL 4.2-5.4 [facility] Blood hemoglobin measurement (mass/volume)Ordered By: Denis Vaca on 07-13-2023 Hemoglobin (Bld) [Mass/Vol] 13.0 g/dL 12.0-15.0 [facility] Blood lymphocytes/100 leukoc ytesOrdered By: Denis Vaca on 07-13-2023 Lymphocytes/100 WBC (Bld) 37.1 % 19-41 [facility] Blood monocytes/100 leukocyt esOrdered By: Denis Vaca on 07-13-2023 Monocytes/100 WBC (Bld) 6.6 % 0-10 [facility] Blood platelet mean volumeOr dered By: Denis Vaca on 07-13-2023 Platelet mean volume (Bld) [Entitic vol] 11.8 fL 6.2-12.0 [facility] Determination of erythrocyte mean corpuscular volume (MCV)Ordered By: Denis Vaca on 07-13-2023 MCV (RBC) [Entitic vol] 96.4 fL 81-99 [facility] Glucose Glucometer (BldC) [M ass/Vol]Ordered By: Denis Vaca on 07-13-2023 Glucose [Mass/Vol] 100 mg/dL 74-106 [facility] Comment on above: MANAGEMENT OF PATIEN T CARE PER NURSING PROTOCOL Hematocrit Auto (Bld) [Volum e fraction]Ordered By: Denis Vaca on 07-13-2023 Hematocrit (Bld) [Volume fraction] 39.7 % 37-47 [facility] Ketones Test strip Ql (U)Ord ered By: Denis Vaca on 07-13-2023 Ketones Ql (U) 5 mg/dl Negative [facility] Laboratory - Chemistry and C hemistry - challengeOrdered By: Denis Vaca on 07-13-2023 ALP [Catalytic activity/Vol] 114 U/L 45-117 [facility] ALT [Catalytic activity/Vol] 30 U/L 13-56 [facility] CO2 [Moles/Vol] 30.0 mmol/L 21.0-32.0 [facility] Globulin (S) [Mass/Vol] 4.4 g/dL 2.2-4.2 [facility] Magnesium [Mass/Vol] 2.2 mg/dL 1.6-2.6 [facility] Comment on above: Slight Hemolysis, Re sult may be falsely increased. Urea nitrogen/Creatinine [Mass ratio] 8.1 mg/mg 10-20 [facility] Laboratory - Hematology and Cell countsOrdered By: Denis Vaca on 07-13-2023 Erythrocyte distribution width (RBC) [Entitic vol] 51.2 fL 35.1-43.9 [facility] Erythrocyte distribution width (RBC) [Ratio] 14.5 % 11.6-14.6 [facility] Immature granulocytes/100 WBC (Bld) 1.100 % 0.0-0.9 [facility] Comment on above: IG% - Immature Granu locytes (promyelocytes, myelocytes and metamyelocytes) > 1% indicates that a LEFT SHIFT is Present. MCH (RBC) [Entitic mass] 31.6 pg 27.0-32.0 [facility] Nucleated RBC/100 WBC (Bld) [Ratio] 0 % 0-5 [facility] MCHC Auto (RBC) [Mass/Vol]Or dered By: Denis Vaca on 07-13-2023 MCHC (RBC) [Mass/Vol] 32.7 g/dL 32-36 [facility] Mucus LM Ql (Urine sed)Order ed By: Denis Vaca on 07-13-2023 Mucus Ql (Urine sed) 0 SEEN /hpf [facility] Nitrite Test strip Ql (U)Ord ered By: Denis Vaca on 07-13-2023 Nitrite Ql (U) Positive Negative [facility] No Panel InformationOrdered By: Denis Vaca on 07-13-2023 Troponin I High Sensitivity 5 pg/mL 3.0-54.0 [facility] Comment on above: Please Note: New Ailyn t Units and Gender Specific Reference Ranges. For more information see Policy Stat Procedure [place] High Sensitivity Troponin (TNIH) and attachments. Estimated Creatinine Clearance Calc 56.76 ml/min [facility] Estimated GFR (MDRD) Amer 67 mL/min >60 [facility] Comment on above: GFR Calc Estimated GFR (MDRD) Non-Af Amer 55 mL/min >60 [facility] Comment on above: Non- GFR Calc Thyroid Stimulating Hormone (TSH) 204.00 uIU/mL 0.358-3.74 [facility] Platelets bldOrdered By: Ilda Vaca on 07-13-2023 Platelets (Bld) [#/Vol] 214 10*3/uL 150-450 [facility] Protein Test strip Ql (U)Ord ered By: Denis Vaca on 07-13-2023 Protein Ql (U) 15 mg/dl Negative [facility] Serum or plasma albumin alex urement (mass/volume)Ordered By: Denis Vaca on 07-13-2023 Albumin [Mass/Vol] 3.8 g/dL 3.2-5.0 [facility] Serum or plasma albumin/glob ulin mass ratioOrdered By: Denis Vaca on 07-13-2023 Albumin/Globulin [Mass ratio] 0.9 {ratio} 0.9-2.4 [facility] Serum or plasma calcium alex urement (mass/volume)Ordered By: Denis Vaca on 07-13-2023 Calcium [Mass/Vol] 8.9 mg/dL 8.5-10.1 [facility] Serum or plasma creatinine m easurement (mass/volume)Ordered By: Denis Vaca on 07-13-2023 Creatinine [Mass/Vol] 1.11 mg/dL 0.55-1.02 [facility] Comment on above: The validity of the calculated GFR & GFRAA in patients over 70 years has not been determined. Clinical correlation is essential. Serum or plasma urea nitroge n measurement (mass/volume)Ordered By: Denis Vaca on 07-13-2023 Urea nitrogen [Mass/Vol] 9 mg/dL 7-18 [facility] Squamous epithelial cells de tection in urine sediment by light microscopyOrdered By: Denis Vaca on 07-13-2023 Epithelial cells.squamous LM Ql (Urine sed) 0-5 SEEN /hpf 5-10 [facility] Thin prep Papanicolaou smear with manual screeningOrdered By: Denis Vaca on 07-13-2023 Thin prep Papanicolaou smear with manual screening 33 U/L 15- [facility] Comment on above: Slight Hemolysis, Re sult may be falsely increased. Thin prep Papanicolaou smear with manual screening 4 - [facility] Urine blood detectionOrdered By: Denis Vaca on 07-13-2023 RBC Ql (U) 25 /ul Negative [facility] RBC Ql (U) 0 SEEN /hpf 0-5 [facility] Urine clarityOrdered By: Ilda Vaca on 07-13-2023 Clarity (U) Sl. Cloudy Clear [facility] Urine color determinationOrd ered By: Denis Vaca on 07-13-2023 Color (U) Yellow Yellow [facility] Urine glucose detectionOrder ed By: Denis Vaca on 07-13-2023 Glucose Ql (U) Normal mg/dl Normal [facility] Urine leukocyte esterase det ection by dipstickOrdered By: Denis Vaca on 07-13-2023 Leukocyte esterase Test strip Ql (U) 100 /ul Negative [facility] Urine pHOrdered By: Denis avelar on 07-13-2023 pH (U) 5.0 [pH] 5.0 - 8.0 [facility] Urine sediment bacteria coun t by microscopy (number/high power field)Ordered By: Denis Vaca on 07-13-2023 Bacteria LM.HPF (Urine sed) [#/Area] 2 /[HPF] None Seen [facility] Urine specific gravity measu rementOrdered By: Denis Vaca on 07-13-2023 Specific gravity (U) [Rel density] 1.030 1.002-1.030 [facility] Urobilinogen Auto test strip Ql (U)Ordered By: Denis Vaca on 07-13-2023 Urobilinogen Ql (U) Normal mg/dl Normal [facility] TSH DL <= 0.005 mIU/L Qnon 0 12-22-2022 Interpretation and review of laboratory results Abnormal [facility] TSH Qn 69.60 m[IU]/L High [facility] Laboratory - Chemistry and C hemistry - challengeon 04-05-2022 HCG ( test) Ql (U) Negative [facility] Work Phone: Comment on above: Very dilute urine sp ecimens, as indicated by a low specificgravity, may not contain territory service representative levels of hCG. If is still suspected, a first morning urinespecimen should be collected 48 hours later and tested. Absolute lymphocyte counton 04-03-2022 Lymphocytes Auto (Unsp spec) [#/Vol] 3.01 10*3/uL 0.83-4.51 [facility] Work Phone: Basophil percentageon 2021 Basophils/100 WBC (Bld) 1.0 % 0-1 [facility] Work Phone: Bilirubin [Mass/Vol] 0.30 mg/dL 0.20-1.00 [facility] Work Phone: Comment on above: For patients on eltr ombopag therapy, use of Dimension [place] TBIL is not recommended. Chloride [Moles/Vol] 107 mmol/L 98-107 [facility] Work Phone: Eosinophils/100 WBC (Bld) 2.4 % 0-5 [facility] Work Phone: Glucose [Mass/Vol] 99 mg/dL 74-106 [facility] Work Phone: Neutrophils (Bld) [#/Vol] 3.3 10*3/uL 2.0-7.7 [facility] Work Phone: [phone] Neutrophils/100 WBC (Bld) 46.9 % 47-70 [facility] Work Phone: Potassium [Moles/Vol] 4.0 mmol/L 3.5-5.1 [facility] Work Phone: Protein [Mass/Vol] 7.0 g/dL 6.4-8.2 [facility] Work Phone: Sodium [Moles/Vol] 138 mmol/L 136-145 [facility] Work Phone: WBC (Bld) [#/Vol] 7.1 10*3/uL 4.4-11.0 [facility] Work Phone: Blood erythrocytes count (nu mber/volume)on 04-03-2022 RBC (Bld) [#/Vol] 4.15 10*6/uL 4.2-5.4 [facility] Work Phone: Blood hemoglobin measurement (mass/volume)on 04-03-2022 Hemoglobin (Bld) [Mass/Vol] 12.5 g/dL 12.0-15.0 [facility] Work Phone: Blood lymphocytes/100 leukoc yteson 04-03-2022 Lymphocytes/100 WBC (Bld) 42.6 % 19-41 [facility] Work Phone: Blood monocytes/100 leukocyt eson 04-03-2022 Monocytes/100 WBC (Bld) 6.7 % 0-10 [facility] Work Phone: [phone] Blood platelet mean volumeon 04-03-2022 Platelet mean volume (Bld) [Entitic vol] 10.0 fL 6.2-12.0 [facility] Work Phone: Determination of erythrocyte mean corpuscular volume (MCV)on 04-03-2022 MCV (RBC) [Entitic vol] 92.3 fL 81-99 [facility] Work Phone: Hematocrit Auto (Bld) [Volum e fraction]on 04-03-2022 Hematocrit (Bld) [Volume fraction] 38.3 % 37-47 [facility] Work Phone: Laboratory - Chemistry and C hemistry - challengeon 04-03-2022 ALP [Catalytic activity/Vol] 76 U/L 45-117 [facility] Work Phone: ALT [Catalytic activity/Vol] 13 U/L 13-56 [facility] Work Phone: CO2 [Moles/Vol] 28.0 mmol/L 21.0-32.0 [facility] Work Phone: Globulin (S) [Mass/Vol] 3.9 g/dL 2.2-4.2 [facility] Work Phone: Urea nitrogen/Creatinine [Mass ratio] 11.3 mg/mg 10-20 [facility] Work Phone: Laboratory - Hematology and Cell countson 04-03-2022 Erythrocyte distribution width (RBC) [Entitic vol] 43.4 fL 35.1-43.9 [facility] Work Phone: Erythrocyte distribution width (RBC) [Ratio] 12.8 % 11.6-14.6 [facility] Work Phone: Immature granulocytes/100 WBC (Bld) 0.400 % 0.0-0.9 [facility] Work Phone: Comment on above: IG% - Immature Granu locytes (promyelocytes, myelocytes and metamyelocytes) > 1% indicates that a LEFT SHIFT is Present. MCH (RBC) [Entitic mass] 30.1 pg 27.0-32.0 [facility] Work Phone: Nucleated RBC/100 WBC (Bld) [Ratio] 0 % 0-5 [facility] Work Phone: MCHC Auto (RBC) [Mass/Vol]on 04-03-2022 MCHC (RBC) [Mass/Vol] 32.6 g/dL 32-36 [facility] Work Phone: No Panel Informationon 04-03 Estimated Creatinine Clearance Calc 74.26 ml/min [facility] Work Phone: Estimated GFR (MDRD) Amer 98 mL/min >60 [facility] Work Phone: Comment on above: GFR Calc Estimated GFR (MDRD) Non-Af Amer 81 mL/min >60 [facility] Work Phone: Comment on above: Non- GFR Calc Troponin I High Sensitivity 73 pg/mL 3.0-54.0 [facility] Work Phone: Comment on above: Please Note: New Ailyn t Units and Gender Specific Reference Ranges. For more information see Policy Stat Procedure [place] High Sensitivity Troponin (TNIH) and attachments. Troponin I High Sensitivity 48 pg/mL 3.0-54.0 [facility] Work Phone: Comment on above: Please Note: New Ailyn t Units and Gender Specific Reference Ranges. For more information see Policy Stat Procedure [place] High Sensitivity Troponin (TNIH) and attachments. Platelets bldon 04-03-2022 Platelets (Bld) [#/Vol] 226 10*3/uL 150-450 [facility] Work Phone: Serum or plasma albumin alex urement (mass/volume)on 04-03-2022 Albumin [Mass/Vol] 3.1 g/dL 3.2-5.0 [facility] Work Phone: Serum or plasma albumin/glob ulin mass ratioon 04-03-2022 Albumin/Globulin [Mass ratio] 0.8 {ratio} 0.9-2.4 [facility] Work Phone: Serum or plasma calcium alex urement (mass/volume)on 04-03-2022 Calcium [Mass/Vol] 8.5 mg/dL 8.5-10.1 [facility] Work Phone: Serum or plasma creatinine m easurement (mass/volume)on 04-03-2022 Creatinine [Mass/Vol] 0.80 mg/dL 0.55-1.02 [facility] Work Phone: Comment on above: The validity of the calculated GFR & GFRAA in patients over 70 years has not been determined. Clinical correlation is essential. Serum or plasma urea nitroge n measurement (mass/volume)on 04-03-2022 Urea nitrogen [Mass/Vol] 9 mg/dL 7-18 [facility] Work Phone: Thin prep Papanicolaou smear with manual screeningon 04-03-2022 Thin prep Papanicolaou smear with manual screening 11 U/L 15-37 [facility] Work Phone: Thin prep Papanicolaou smear with manual screening 3 5-15 [facility] Work Phone: Absolute lymphocyte counton 04-02-2022 Lymphocytes Auto (Unsp spec) [#/Vol] 3.36 10*3/uL 0.83-4.51 [facility] Work Phone: [phone] Basophil percentageon 2021 Basophils/100 WBC (Bld) 1.2 % 0-1 [facility] Work Phone: [phone] Chloride [Moles/Vol] 105 mmol/L 98-107 [facility] Work Phone: [phone] Eosinophils/100 WBC (Bld) 1.7 % 0-5 [facility] Work Phone: [phone] Glucose [Mass/Vol] 100 mg/dL 74-106 [facility] Work Phone: [phone] Comment on above: Fasting Glucose resu lt from 100 to 125 mg/dL suggests IMPAIRED HOMEOSTASIS per A.D.A. criteria. Neutrophils (Bld) [#/Vol] 3.4 10*3/uL 2.0-7.7 [facility] Work Phone: Neutrophils/100 WBC (Bld) 44.5 % 47-70 [facility] Work Phone: [phone] Potassium [Moles/Vol] 3.3 mmol/L 3.5-5.1 [facility] Work Phone: [phone] Sodium [Moles/Vol] 139 mmol/L 136-145 [facility] Work Phone: [phone] WBC (Bld) [#/Vol] 7.6 10*3/uL 4.4-11.0 [facility] Work Phone: Blood erythrocytes count (nu mber/volume)on 04-02-2022 RBC (Bld) [#/Vol] 4.46 10*6/uL 4.2-5.4 [facility] Work Phone: Blood hemoglobin measurement (mass/volume)on 04-02-2022 Hemoglobin (Bld) [Mass/Vol] 13.7 g/dL 12.0-15.0 [facility] Work Phone: Blood lymphocytes/100 leukoc yteson 04-02-2022 Lymphocytes/100 WBC (Bld) 44.0 % 19-41 [facility] Work Phone: Blood monocytes/100 leukocyt eson 04-02-2022 Monocytes/100 WBC (Bld) 7.6 % 0-10 [facility] Work Phone: Blood platelet mean volumeon 04-02-2022 Platelet mean volume (Bld) [Entitic vol] 10.1 fL 6.2-12.0 [facility] Work Phone: Determination of erythrocyte mean corpuscular volume (MCV)on 04-02-2022 MCV (RBC) [Entitic vol] 90.8 fL 81-99 [facility] Work Phone: Hematocrit Auto (Bld) [Volum e fraction]on 04-02-2022 Hematocrit (Bld) [Volume fraction] 40.5 % 37-47 [facility] Work Phone: INR in Blood by Coagulation assayon 04-02-2022 INR Coag (Bld) [Relative time] 1.0 {INR} [facility] Work Phone: Laboratory - Chemistry and C hemistry - challengeon 04-02-2022 CO2 [Moles/Vol] 29.0 mmol/L 21.0-32.0 [facility] Work Phone: Magnesium [Mass/Vol] 1.9 mg/dL 1.6-2.6 [facility] Work Phone: Urea nitrogen/Creatinine [Mass ratio] 10.5 mg/mg 10-20 [facility] Work Phone: Laboratory - Coagulationon 0 04-02-2022 aPTT Coag (Bld) [Time] 27.8 s 24.1-36.2 [facility] Work Phone: PT Coag (PPP) [Time] 13.0 s 11.7-14.9 [facility] Work Phone: Laboratory - Hematology and Cell countson 04-02-2022 Erythrocyte distribution width (RBC) [Entitic vol] 41.4 fL 35.1-43.9 [facility] Work Phone: Erythrocyte distribution width (RBC) [Ratio] 12.6 % 11.6-14.6 [facility] Work Phone: Immature granulocytes/100 WBC (Bld) 1.000 % 0.0-0.9 [facility] Work Phone: Comment on above: IG% - Immature Granu locytes (promyelocytes, myelocytes and metamyelocytes) > 1% indicates that a LEFT SHIFT is Present. MCH (RBC) [Entitic mass] 30.7 pg 27.0-32.0 [facility] Work Phone: Nucleated RBC/100 WBC (Bld) [Ratio] 0 % 0-5 [facility] Work Phone: MCHC Auto (RBC) [Mass/Vol]on 04-02-2022 MCHC (RBC) [Mass/Vol] 33.8 g/dL 32-36 [facility] Work Phone: No Panel Informationon 04-02 D-Dimer Quantitative (PE/DVT) 0.51 FEU/ug/m 0.27-0.49 [facility] Work Phone: Comment on above: CRITICAL VALUE VERIF IED. CALLED TO ACE HERNANDEZ RN ED04/02/22 [id number].RESULTS READ BACK BY SAME . D-Dimer ELEVATED (>0.49): Additional studies and clinicalassessments are indicated to conclude diagnosis of:Deep Vein Thrombosis (DVT) or Pulmonary Embolism (PE) Estimated Creatinine Clearance Calc 69.08 ml/min [facility] Work Phone: Estimated GFR (MDRD) Amer 91 mL/min >60 [facility] Work Phone: Comment on above: GFR Calc Estimated GFR (MDRD) Non-Af Amer 75 mL/min >60 [facility] Work Phone: Comment on above: Non- GFR Calc Platelets bldon 04-02-2022 Platelets (Bld) [#/Vol] 248 10*3/uL 150-450 [facility] Work Phone: Serum or plasma calcium alex urement (mass/volume)on 04-02-2022 Calcium [Mass/Vol] 9.5 mg/dL 8.5-10.1 [facility] Work Phone: Serum or plasma creatinine m easurement (mass/volume)on 04-02-2022 Creatinine [Mass/Vol] 0.86 mg/dL 0.55-1.02 [facility] Work Phone: Comment on above: The validity of the calculated GFR & GFRAA in patients over 70 years has not been determined. Clinical correlation is essential. Serum or plasma urea nitroge n measurement (mass/volume)on 04-02-2022 Urea nitrogen [Mass/Vol] 9 mg/dL 7-18 [facility] Work Phone: Thin prep Papanicolaou smear with manual screeningon 04-02-2022 Thin prep Papanicolaou smear with manual screening 5 5-15 [facility] Work Phone: Absolute lymphocyte counton 02-25-2022 Lymphocytes Auto (Unsp spec) [#/Vol] 2.23 10*3/uL 0.83-4.51 [facility] Work Phone: Basophil percentageon 2021 Basophils/100 WBC (Bld) 1.2 % 0-1 [facility] Work Phone: [phone] Chloride [Moles/Vol] 103 mmol/L 98-107 [facility] Work Phone: [phone] Eosinophils/100 WBC (Bld) 2.1 % 0-5 [facility] Work Phone: [phone] Glucose [Mass/Vol] 104 mg/dL 74-106 [facility] Work Phone: Comment on above: Fasting Glucose resu lt from 100 to 125 mg/dL suggests IMPAIRED HOMEOSTASIS per A.D.A. criteria. Neutrophils (Bld) [#/Vol] 2.6 10*3/uL 2.0-7.7 [facility] Work Phone: [phone] Neutrophils/100 WBC (Bld) 45.3 % 47-70 [facility] Work Phone: [phone] Potassium [Moles/Vol] 4.0 mmol/L 3.5-5.1 [facility] Work Phone: [phone] Sodium [Moles/Vol] 137 mmol/L 136-145 [facility] Work Phone: [phone] WBC (Bld) [#/Vol] 5.6 10*3/uL 4.4-11.0 [facility] Work Phone: Blood erythrocytes count (nu mber/volume)on 02-25-2022 RBC (Bld) [#/Vol] 4.60 10*6/uL 4.2-5.4 [facility] Work Phone: [phone] Blood hemoglobin measurement (mass/volume)on 02-25-2022 Hemoglobin (Bld) [Mass/Vol] 13.9 g/dL 12.0-15.0 [facility] Work Phone: [phone] Blood lymphocytes/100 leukoc yteson 02-25-2022 Lymphocytes/100 WBC (Bld) 39.6 % 19-41 [facility] Work Phone: Blood monocytes/100 leukocyt eson 02-25-2022 Monocytes/100 WBC (Bld) 11.4 % 0-10 [facility] Work Phone: Blood platelet mean volumeon 02-25-2022 Platelet mean volume (Bld) [Entitic vol] 10.1 fL 6.2-12.0 [facility] Work Phone: Determination of erythrocyte mean corpuscular volume (MCV)on 02-25-2022 MCV (RBC) [Entitic vol] 92.0 fL 81-99 [facility] Work Phone: Hematocrit Auto (Bld) [Volum e fraction]on 02-25-2022 Hematocrit (Bld) [Volume fraction] 42.3 % 37-47 [facility] Work Phone: Laboratory - Chemistry and C hemistry - challengeon 02-25-2022 CO2 [Moles/Vol] 29.0 mmol/L 21.0-32.0 [facility] Work Phone: Urea nitrogen/Creatinine [Mass ratio] 10.4 mg/mg 10-20 [facility] Work Phone: Laboratory - Coagulationon 0 02-25-2022 aPTT Coag (Bld) [Time] 28.0 s 24.1-36.2 [facility] Work Phone: Laboratory - Hematology and Cell countson 02-25-2022 Erythrocyte distribution width (RBC) [Entitic vol] 46.1 fL 35.1-43.9 [facility] Work Phone: Erythrocyte distribution width (RBC) [Ratio] 13.5 % 11.6-14.6 [facility] Work Phone: Immature granulocytes/100 WBC (Bld) 0.400 % 0.0-0.9 [facility] Work Phone: Comment on above: IG% - Immature Granu locytes (promyelocytes, myelocytes and metamyelocytes) > 1% indicates that a LEFT SHIFT is Present. MCH (RBC) [Entitic mass] 30.2 pg 27.0-32.0 [facility] Work Phone: Nucleated RBC/100 WBC (Bld) [Ratio] 0 % 0-5 [facility] Work Phone: MCHC Auto (RBC) [Mass/Vol]on 02-25-2022 MCHC (RBC) [Mass/Vol] 32.9 g/dL 32-36 [facility] Work Phone: No Panel Informationon 02-25 Troponin I High Sensitivity 3 pg/mL 3.0-54.0 [facility] Work Phone: Comment on above: Please Note: New Ailyn t Units and Gender Specific Reference Ranges. For more information see Policy Stat Procedure [place] High Sensitivity Troponin (TNIH) and attachments. Estimated Creatinine Clearance Calc 69.08 ml/min [facility] Work Phone: Estimated GFR (MDRD) Amer 90 mL/min >60 [facility] Work Phone: Comment on above: GFR Calc Estimated GFR (MDRD) Non-Af Amer 74 mL/min >60 [facility] Work Phone: Comment on above: Non- GFR Calc Platelets bldon 02-25-2022 Platelets (Bld) [#/Vol] 236 10*3/uL 150-450 [facility] Work Phone: Serum or plasma calcium alex urement (mass/volume)on 02-25-2022 Calcium [Mass/Vol] 9.5 mg/dL 8.5-10.1 [facility] Work Phone: Serum or plasma creatinine m easurement (mass/volume)on 02-25-2022 Creatinine [Mass/Vol] 0.86 mg/dL 0.55-1.02 [facility] Work Phone: Comment on above: The validity of the calculated GFR & GFRAA in patients over 70 years has not been determined. Clinical correlation is essential. Serum or plasma urea nitroge n measurement (mass/volume)on 02-25-2022 Urea nitrogen [Mass/Vol] 9 mg/dL 03-15 [facility] Work Phone: Thin prep Papanicolaou smear with manual screeningon 02-25-2022 Thin prep Papanicolaou smear with manual screening 5 01-10 [facility] Work Phone: XR KNEE LEFT 2 VIEWS (STANDA RD)on 10-16-2019 No acute osseous abnormality. [employer] Workstation ID: [id number] [facility] EXAMINATION: XR KNEE LEFT 2 VIEWS (STANDARD) HISTORY: ORDERING SYSTEM PROVIDED HISTORY: left knee xray, TECHNOLOGIST PROVIDED HISTORY: Illness/Other Reason for exam: chronic pain of left knee Cancer History: N Surgery, RadiationHistory: N Encounter Type: Initial Additional signs and symptoms: chronic pain of left knee x several years. nki. ORDERING SYSTEM PROVIDED DIAGNOSIS CODES: M25.562 Chronic pain of left knee G89.29 Chronic pain of left knee COMPARISON: None. FINDINGS: Two views of the left knee. No acute fracture. Joint alignment is anatomic. Joint spaces are preserved. No significant joint effusion. Soft tissues are within normal limits. [facility] Interface, Rad In Fu ji Speechq - 10/16/2019 6:19 PM EST EXAMINATION: XR KNEE LEFT 2 VIEWS (STANDARD) HISTORY: ORDERING SYSTEM PROVIDED HISTORY: left knee xray, TECHNOLOGIST PROVIDED HISTORY: Illness/Other Reason for exam: chronic pain of left knee Cancer History: N Surgery, RadiationHistory: N Encounter Type: Initial Additional signs and symptoms: chronic pain of left knee x several years. nki. ORDERING SYSTEM PROVIDED DIAGNOSIS CODES: M25.562 Chronic pain of left knee G89.29 Chronic pain of left knee COMPARISON: None. FINDINGS: Two views of the left knee. No acute fracture. Joint alignment is anatomic. Joint spaces are preserved. No significant joint effusion. Soft tissues are within normal limits. IMPRESSION: No acute osseous abnormality. [employer] Workstation ID: [id number] [facility] THYROID PEROXIDASE ANTIBODY (TPO)on 07-13-2019 Interpretation and review of laboratory results Abnormal [facility] TPO Ab Qn 908.6 [IU]/mL High [facility] Comment on above: Assay performed by [employer] Immunoassay. Otheron 07-12-2019 Interpretation and review of laboratory results Normal [facility] T4, Freeon 07-12-2019 Free T4 [Mass/Vol] 1.1 ng/dL 0.7 - 1.7 ng/dL [facility] TSHon 07-12-2019 TSH Qn 2.80 m[IU]/L [facility] US Thyroid Onlyon 02-21-2019 1. Heterogeneous appearance of the thyroid gland without focal solid nodule. 2. Asymmetric enlargement of the right thyroid lobe. [facility] Workstation ID: [id number] [facility] EXAMINATION: US THYROID ONLY HISTORY: ORDERING SYSTEM PROVIDED HISTORY: hypothyroidism and is having trouble swallowing, TECHNOLOGIST PROVIDED HISTORY: Illness/Other Reason for exam: TROUBLE SWOLLOWING X 1 MO Cancer History: N Surgery, RadiationHistory: N Encounter Type: Initial Additional signs and symptoms: N ORDERING SYSTEM PROVIDED DIAGNOSIS CODES: E03.9 Hypothyroidism, [...] x 1.8 x 1.3 cm (4.2 mL). [facility] Interface, Rad In Fu ji Speechq - 02/21/2019 6:43 PM EDT EXAMINATION: US THYROID ONLY HISTORY: ORDERING SYSTEM PROVIDED HISTORY: hypothyroidism and is having trouble swallowing, TECHNOLOGIST PROVIDED HISTORY: Illness/Other Reason for exam: TROUBLE SWOLLOWING X 1 MO Cancer History: N Surgery, RadiationHistory: N Encounter Type: Initial Additional signs and symptoms: N ORDERING SYSTEM PROVIDED DIAGNOSIS CODES: E03.9 Hypothyroidism, [...] Asymmetric enlargement of the right thyroid lobe. [facility] Workstation ID: [id number] [facility] CBC with Diffon 06-15-2017 Basophils Auto #/vol (Bld) 0.0 K/mcL Normal 0-0.2 [facility] Comment on above: Performed By: #### C BCDIF ####Unless otherwise noted, all testing performed by [place] [phone]: [id number] Director: Tino Hutchison M.D. Basophils/100 WBC Auto (Bld) 0.3 % Normal [facility] Comment on above: Performed By: #### C BCDIF ####Unless otherwise noted, all testing performed by [place] [id number]: [id number] Director: Tino Hutchison M.D. Eosinophils 0.1 K/mcL Normal 0-0.5 [facility] Comment on above: Performed By: #### C BCDIF ####Unless otherwise noted, all testing performed by [place] [phone]: [id number] Director: Tino Hutchison M.D. Eosinophils/100 leukocytes 0.7 % Normal [facility] Comment on above: Performed By: #### C BCDIF ####Unless otherwise noted, all testing performed by [address] [id number]: [id number] Director: Tino Hutchison M.D. Erythrocyte distribution width Auto Ratio (RBC) 13.5 % Normal 10.0-14.4 [facility] Comment on above: Performed By: #### C BCDIF ####Unless otherwise noted, all testing performed by [facility] [address] [phone]: [id number] Director: Tino Hutchison M.D. Erythrocyte morphology Normal Normal Normal [facility] Comment on above: Performed By: #### C BCDIF ####Unless otherwise noted, all testing performed by [address] [phone]: [id number] Director: Tino Hutchison M.D. Erythrocytes (RBC) 3.87 M/mcL Normal 3.7-5.0 [facility] Comment on above: Performed By: #### C BCDIF ####Unless otherwise noted, all testing performed by [address] [phone]: [id number] Director: Tino Hutchison M.D. Hematocrit (HCT) 36.0 % Normal 34.4-44.8 [facility] Comment on above: Performed By: #### C BCDIF ####Unless otherwise noted, all testing performed by [address] [phone]: [id number] Director: Tino Hutchison M.D. Hemoglobin mass conc (Bld) 12.1 g/dL Normal 11.6-15.4 [facility] Comment on above: Performed By: #### C BCDIF ####Unless otherwise noted, all testing performed by [address] [phone]: [id number] Director: Tino Hutchison M.D. Lymphocytes 1.6 K/mcL Normal 1.0-3.7 [facility] Comment on above: Performed By: #### C BCDIF ####Unless otherwise noted, all testing performed by [address] [phone]: [id number] Director: Tino Hutchison M.D. Lymphocytes/100 leukocytes 14.7 % Normal [facility] Comment on above: Performed By: #### C BCDIF ####Unless otherwise noted, all testing performed by [address] [id number]: [id number] Director: Tino Hutchison M.D. MCH 31.3 pg Normal 27.9-33.9 [facility] Comment on above: Performed By: #### C BCDIF ####Unless otherwise noted, all testing performed by [address] [phone]: [id number] Director: Tino Hutchison M.D. MCHC mass conc (RBC) 33.7 g/dL Normal 33.1-35.1 [facility] Comment on above: Performed By: #### C BCDIF ####Unless otherwise noted, all testing performed by [address] [phone]: [id number] Director: Tino Hutchison M.D. MCV 92.9 fL Normal 82.6-98.9 [facility] Comment on above: Performed By: #### C BCDIF ####Unless otherwise noted, all testing performed by [address] [phone]: [id number] Director: Tino Hutchison M.D. Monocytes 0.8 K/mcL High 0.1-0.6 [facility] Comment on above: Performed By: #### C BCDIF ####Unless otherwise noted, all testing performed by [address] [phone]: [id number] Director: Tino Hutchison M.D. Monocytes/100 leukocytes 7.2 % Normal [facility] Comment on above: Performed By: #### C BCDIF ####Unless otherwise noted, all testing performed by [place] [phone]: [id number] Director: Tino Hutchison M.D. Neutrophils 8.4 K/mcL High 1.2-6.9 [facility] Comment on above: Performed By: #### C BCDIF ####Unless otherwise noted, all testing performed by [place] [phone]: [id number] Director: Tino Hutchison M.D. Platelet mean volume (PMV) 9.1 fL Normal 7.0-10.6 [facility] Comment on above: Performed By: #### C BCDIF ####Unless otherwise noted, all testing performed by [place] [phone]: [id number] Director: Tino Hutchison M.D. Platelets 185 K/mcL Normal 162-402 [facility] Comment on above: Performed By: #### C BCDIF ####Unless otherwise noted, all testing performed by [address] [phone]: [id number] Director: Tino Hutchison M.D. Segmented Neut % 77.1 % Normal [facility] Comment on above: Result Comment: Smea r reviewed to verify automated differential> Performed By: #### C BCDIF ####Unless otherwise noted, all testing performed by [address] [phone]: [id number] Director: Tino Hutchison M.D. WBC (Leukocytes) 10.9 K/mcL High 3.4-10.6 [facility] Comment on above: Performed By: #### C BCDIF ####Unless otherwise noted, all testing performed by [address] [phone]: [id number] Director: Tino Hutchison M.D. History And Physical-Dictate don 06-14-2017 History And Physical-Dictated [address] [address]XJCETISH [facility] [facility] [id number] [id number] 1975DATEPRE-SURG ICAL HISTORY AND PHYSICALPREOPERATIVE DIAGNOSISDysmenorrhea, menorrhagia and history of abnormal Paps.PAST MEDICAL HISTORYThe patient is a 42-year-old white female referred for treatment options forongoing dysmenorrhea, menorrhagia and abnormal Paps. After discussionregarding treatment alternatives, including control, Depo, IUD andendometrial ablation, patient requests a hysterectomy. 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 Patient relates a historyof previous abnormal Paps, although patient's history does not indicate thatshe has ever had a colposcopy or a LEEP.PHYSICAL EXAMVital Signs: Weight is 156, blood pressure is 116/74.Lungs: Clear to auscultation.Heart: Regular rate and rhythm.Abdomen: Soft, without rebound or guarding. There is some mild left lowerquadrant tenderness. Uterus has first-degree prolapse with Valsalva and isnormal in size. Left adnexa is mildly tender but without palpable mass.ASSESSMENT AND PLANA 42-year-old white female for laparoscopically-lalo yonathan vaginal hysterectomywith leftsalpingo-oophorect reid for dysmenorrhea, menorrhagia, left lower quadrant painand history of abnormal Pap.JOSE VERDUZCO, [facility] 06/13/2017 14:18 [id number] 06/13/2017 14:34 CAC/MODLElectronically Signed By Jose Verduzco M.D. on 14 Jun 2017 12:49:44 GMT Normal [facility] Operation-Procedure [facility], [place] [address]TLSQ TISH BAE E [facility] [id number] 1973DATEOPERATIV E REPORT / PROCEDURE NOTESURGEON GERARD PRICEREOPERATIVE DIAGNOSISDysmenorrhea, menorrhagia and history of abnormal Paps.POSTOPERATIVE DIAGNOSISDysmenorrhea, menorrhagia and history of abnormal Paps.PROCEDURELaparosc opically assisted vaginal hysterectomy and left salpingo-oophorectomy. Imtiaz.AN ESTHESIAGeneral endotracheal.SPECIMENS REMOVEDUterus, cervix and left adnexal.ESTIMATED BLOOD VCHM945 mL.DESCRIPTION OF PROCEDUREPatient was brought to the operating room and placed in dorsal supineposition. General anesthesia is then administered. The patient is placed inmodified dorsal lithotomy. The cervix is dilated and the HUMI uterinemanipulator is placed through the cervical os into the uterine cavity. 5 mLof normal saline are insufflated. Bladder is then drained for tuisexnsrgzjx36 mL of clear yellow urine. The patient is placed in even steeperTrendelenburg. A 5 mm subumbilical incision is made. Through this incisionVeress needle is inserted. Intraabdominal location is verified with anintraabdominal pressure of less than 15 mmHg. 2.5 L of CO2 gas areinsufflated and the Veress needle is removed. A 5 mm bladed trocar was placedthrough the subumbilical incision into the gas pocket with anterior abdominalwall tenting. Intraabdominal location is verified under direct videovisualization with the 5 mm laparoscope. Bilateral lower quadrant 5 mmincisions were made 2 cm above the pubic symphysis and 2 cm lateral to themidline. 5 mm bladed trocars are inserted under direct video visualizationthrough these incisions. The uterus is elevated and found to be normal. Bothtubes and ovaries appeared normal. The Harmonic Scalpel is used to burn andcut the left ovarian pedicle distal to the left adnexum, removing a leftadnexal mass. Dissection was continued down to the uterine vessels. Bladderreflection is dissected away from the uterine vessel. On the right, thepedicle is ligated proximal to the ovary retaining the right ovary. Harmonicscalpel is used to cut and dissected down to the level of the uterine vesselson the right. The bladder reflection is dissected away before the uterinevessels are cauterized. All pedicles appeared hemostatic. Attention is thenturned to the vaginal portion of the surgery. The cervix was grasped using asingle-tooth tenaculum. A circumferential incision is made at the level ofthe internal os of the cervix. The vaginal mucosa is bluntly dissected awayfrom the cervix. Peritoneum is entered posteriorly and the Nemo retractorwas placed to retract the rectum away from the field. Uterus sacral ligamentswere clamped, cut, and suture ligated using 0 Vicryl suture. These stitchesare held. Cardinal vessels were then clamped, cut, and suture ligated using 0Vicryl ewhfgv-ne-jgcjn suture. The remainder of the uterine vasculature andperiadnexal attachments were then clamped cut and suture ligated using 0Vicryl nwokfg-hx-lerqt suture. Uterus and cervix are removed from the fieldalong with the left adnexal. All are sent for final pathology. Bleeding isseen from both pedicles at the level of the last suturing, so qxopxl-hs-enrhkvfzxj placed to obtain hemostasis at both sites. Peritoneum is then closedusing 2-0 Vicryl pursestring suture. No bleeding is seen in the abdomen.Angle sutures were placed on both angles of the vaginal cuff, imbricating theuterosacral pedicle into the lateral vaginal townsend. Uterosacral ligamentpedicles were then tied at the midline. The vaginal cuff is closed using 0Vicryl vsqdvx-wt-yuqgi sutures across its entirety. Vaginal cuff is inspectedand there is no active bleeding. Vagina is packed using 4 inch packinginfused with Metrogel and Lozoya catheter is placed. The abdomen was then re-insufflated and all pedicles are examined laparoscopically. All pediclesappeared to be hemostatic laparoscopically in the vaginal cuff was hemostatic.All instruments were removed from the abdomen. Gas is allowed to escape theabdomen. The trocars are removed and the incisions were closed using 3-0Vicryl interrupted suture x3. The patient is repositioned, awakened and takento the recovery room in stable condition. All sponge and instrument countsare correct.DEVAN PRICE 06/14/2017 13:21 [id number] 06/14/2017 14:52 CAC/MODLElectronically Signed By Jose Verduzco M.D. on 15 Jun 2017 13:08:36 GMT Normal [facility] SURGon 06-14-2017 SURG Name: TISH BAE EResubmission due to incomplete transmission of the original reportSource Uterus, Cervix, Left Ovary and Left Fallopian Tube Clinical History Abnormal Uterine BleedingDysmenorrhea Diagnosis Uterus: Leiomyoma. Secretory endometrium. Cervix with parakeratosis, negative for dysplasia. Left ovary: Serous cystadenoma. Left fallopian tube: Paratubal cyst and vascular congestion. Gross Description The specimen is received in formalin designated uterus, cervix, left ovary and tube and consists of a uterus with attached cervix and attached left fallopian tube and left ovary. The uterus weighs 103 g and measures 8.2 cm from ectocervix to fundus, 5.4 cm from cornu to cornu and 4.2 cm in the anterior-posterior dimension. The serosa is smooth and pink. The ectocervical mucosa is smooth and pink-hassan. The endocervical mucosa appears unremarkable. The cut surface of the cervix contains multiple nabothian cysts measuring up to 0.5 cm in greatest dimension. The triangular endometrial cavity measures 5.0 x 3.3 x 0.4 cm. The cavity is lined by spongy, hassan-red tissue. The myometrium contains a well-circumscribed, solid, rubbery, hassan-white nodule measuring 0.2 cm in greatest dimension. The fimbriated left fallopian tube has been previously ligated and measures 5.4 cm in length with an average diameter of 0.6 cm. The serosa is diffusely congested and contains numerous paratubal cysts measuring up to 0.8 cm in greatest dimension. The cystic left ovary measures 2.5 x 1.9 x 1.7 cm. The serosa is smooth and purple-pink. The cut surface contains multiple unilocular, smooth-walled cysts filled with thin, clear fluid measuring up to 1.3 cm in greatest dimension. Cassette 1 contains territory service representative anterior cervix. Cassette 2 contains territory service representative posterior cervix. Cassette 3 contains territory service representative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 Judgment: Judgment normal. BP 133/84 (BP Location: Right arm, Patient Position: Sitting, BP Cuff Size: Adult) Pulse 73 Temp 97.8 F (36.6 C) (Oral) Resp 14 Ht 5' 3 Wt 74.9 kg (165 lb 1.6 oz) LMP (LMP Unknown) SpO2 96% BMI 29.25 kg/m Height: 5' 3 Weight: 74.9 kg (165 lb 1.6 oz) Body mass index is 29.25 kg/m . Discussed elevated Body Mass Index (BMI): Advised regular exercise. Discussed elevated Body Mass Index (BMI): Advised healthy and appropriate diet. Rationale: Overweight (Findings) BMI Assessment and Plan: Problem List Items Addressed This Visit Hypothyroidism, adult TSH completed 01/02/25 and is normal at 3.13. Taking synthroid 88 mcg daily. Did not get ordered thyroid ultrasound that was ordered on 05/22/24. Encouraged to schedule this as she has had thyroid ultrasound that showed asymmetric enlargement of the right thyroid lobe 02/21/19 Plan: Continue synthroid Schedule ordered thyroid ultrasound Anxiety disorder Chronic Not controlled Having more mood swings as well PAULINE score of 17 Continue prozac and buspar at this time She is in agreement to referral to psychiatry Recommended cognitive behavioral therapy Recommended self care-mindfulness meditation, exercise, and adequate sleep. Seek emergent help for any worsening of depression or thoughts of harming self or others. Relevant Orders Ambulatory referral to Behavioral Health Depression, recurrent - Primary Chronic Not controlled Having more mood swings as well PHQ score of 17 Continue prozac at this time She is in agreement to referral to psychiatry Recommended cognitive behavioral therapy Recommended self care-mindfulness meditation, exercise, and adequate sleep. Seek emergent help for any worsening of depression or thoughts of harming self or others. Relevant Orders Ambulatory referral to Behavioral Health Hyperlipidemia Chronic Last lipid panel done 07/11/24 Continue lipitor as ordered Fibromyalgia -Chronic -Does feel she has pain from overuse [place] -Stay active but avoid overuse -continue lyrica. Refill sent Oarrs reviewed today CSA signed 07/18/24 Drug screen done 07/18/24 Relevant Medications pregabalin (LYRICA) 75 MG capsule Mood swing Family history of bipolar in daughter. On prozac and buspar and has been on this for awhile. Noting mood swings. She is in agreement to psychiatry referral Relevant Orders Ambulatory referral to Behavioral Health Tinea pedis of right foot Rash to right foot consistent with tinea. Will send anti fungal cream to use BID Relevant Medications terbinafine HCL (LamISIL) 1 % cream I am managing Tish Bae for complex chronic condition(s) serving as the focal point for the patient's care for consistency and continuity over time. 3 month follow up or sooner if needed Recent Results (from the past 2 weeks) TSH Collection Time: 01/02/25 9:48 AM Result Value Ref Range TSH ([facility]) 3.13 mIU/L Drugs of Abuse Screen, Urine Collection Time: 01/02/25 9:50 AM Result Value Ref Range Amphetamines ([facility]) NEGATIVE <500 ng/mL Barbiturates ([facility]) NEGATIVE <300 ng/mL Benzodiazepines ([facility]) NEGATIVE <100 ng/mL Buprenorphine ([facility]) NEGATIVE <5 ng/mL Cocaine Metabolite ([facility]) NEGATIVE <150 ng/mL Heroin Metabolite ([facility]) NEGATIVE <10 ng/mL Marijuana Metabolite 20 ([facility]) POSITIVE (A) <20 ng/mL Marijuana Metabolite ([facility]) 392 (H) <5 ng/mL Mdma/Mda ([facility]) NEGATIVE <500 ng/mL Methadone Metabolite ([facility]) NEGATIVE <100 ng/mL Opiates ([facility]) NEGATIVE <100 ng/mL Oxycodone ([facility]) NEGATIVE <100 ng/mL Phencyclidine ([facility]) NEGATIVE <25 ng/mL (Always Message) ([facility]) Polly Velasco, ALONZO 01/09/25 7:21 AM 01/09/2025 10:00 AM PHQ-9 Review Little interest or pleasure in doing things 2 Feeling down, depressed, or hopeless 2 PHQ-2 Total Score 4 Trouble falling or staying asleep, or sleeping too much 3 Feeling tired or having little energy 3 Poor appetite or overeating 2 Feeling bad about yourself - or that you are a failure or have let yourself or your family down 2 Trouble concentrating on things, such as reading the newspaper or watching television 0 Moving or speaking so slowly that other people could have noticed. Or the opposite - being so fidgety or restless that you have been moving around a lot more than usual 3 Thoughts that you would be better off , or of hurting yourself in some way 0 PHQ-9 Total Score 17 If you checked off any problems, how difficult have these problems made it for you to do your work, take care of things at home, or get along with other people? Very difficult Patient is currently being treated for depression, see assessment and plan for management details. [1] Current Outpatient Medications: atorvastatin (LIPITOR) 20 MG tablet, Take 1 (one) tablet (20 mg total) by mouth every night at bedtime ., Disp: 30 tablet, Rfl: 11 busPIRone (BUSPAR) 7.5 MG tablet, Take 1 (one) tablet (7.5 mg total) by mouth 2 (two) times a day ., Disp: 60 tablet, Rfl: 11 FLUoxetine (PROZAC) 20 MG capsule, Take 1 (one) capsule (20 mg total) by mouth daily ., Disp: 30 capsule, Rfl: 11 levothyroxine (SYNTHROID, LEVOTHROID) 88 MCG tablet, Take 1 (one) tablet (88 mcg total) by mouth every morning ., Disp: 90 tablet, Rfl: 3 pregabalin (LYRICA) 75 MG capsule, Take 1 (one) capsule (75 mg total) by mouth 2 (two) times a day (Days supply per fill: 30) ., Disp: 60 capsule, Rfl: 2 terbinafine HCL (LamISIL) 1 % cream, Apply topically 2 (two) times a day Apply to rash on right foot ., Disp: 30 g, Rfl: 1 [2] Social History Tobacco Use Smoking status: Every Day Current packs/day: 0.50 Average packs/day: 0.5 packs/day for 33.0 years (16.5 ttl pk-yrs) Types: Cigarettes Smokeless tobacco: Never Vaping Use Vaping status: Never Used Substance Use Topics Alcohol use: Never Drug use: Yes Types: Marijuana documented in this encounter [facility] 01-09-2025 Note [facility] [address] [facility] [address] [facility] [id number] Name: Tish Bae Age: 49 y.o. Sex: female : 1975 Chief Complaint Patient presents with Follow-up Patient is here for 3 month follow up for chronic care. Tish Bae is a 49 y.o. female being seen on 01/09/25 presenting with Follow-up (Patient is here for 3 month follow up for chronic care.) . History of Present Illness: Here for hypothyroidism, hyperlipidemia, fibromyalgia, depression and anxiety. Hypothyroidism-TSH completed 01/02/25 and is normal at 3.13. Taking synthroid 88 mcg daily. Did not get ordered thyroid ultrasound that was ordered on 05/22/24. Encouraged to schedule this as she has had thyroid ultrasound that showed asymmetric enlargement of the right thyroid lobe 02/21/19 Depression and anxiety- Taking prozac and buspar. [place] it was working well but has noted worsening depression and anxiety over the last month. Feels it could be related to stress as she is working a lot of hours. Noting mood swings more than normal. Denies any suicidal ideations/ homicidal ideations. Is not in counseling at this time. Has never seen psychiatry but would be in agreement to seeing them Hyperlipidemia-Taking lipitor and tolerating medication. Last lipid panel completed 07/11/24. Not following a specific diet. Does not exercise. Fibromyalgia- Taking lyrica. Does feel it works well but has noted worsening of pain since [place] around [place] the zoo over the weekend. Has also been working a lot. Needs a new refill Right foot with itching, peeling skin between toes. Noted it >1 month. Has not tried any otc fungal cream Thyroid Problem Presents for follow-up visit. Symptoms include anxiety and depressed mood. Patient reports no cold intolerance, constipation, diarrhea, dry skin, fatigue, hair loss, heat intolerance, leg swelling, palpitations, weight gain or weight loss. Past treatments include levothyroxine. Prior procedures include thyroid ultrasound. Past Medical History: Past Medical History: Diagnosis Date Anemia Anxiety Depression Disease of thyroid gland Injury of back 2004 Viral illness 10/10/2024 Past Surgical History: Past Surgical History: Procedure Laterality Date BREAST BIOPSY Left 2004 benign BREAST SURGERY FOOT SURGERY HYSTERECTOMY TONSILLECTOMY TUBAL LIGATION Family History: Family History Adopted: Yes Problem Relation Age of Onset Kidney failure Mother ADD / ADHD Daughter Kidney failure Brother ADD / ADHD Son Breast cancer Neg Hx Medications: Current Medications[1] Allergies: Allergies: Patient has no known allergies. Social History: Social History[2] Health Maintenance: Immunizations: There is no immunization history on file for this patient. Oarrs: OARRS/NARxCHECK Report Received and Assessed: 01/09/2025 Date controlled substance agreement signed: 07/18/2024 Date of last drug screen: 07/18/2024 Functional Assessment: No data found Review of Systems Constitutional: Negative for appetite change, fatigue, unexpected weight change, weight gain and weight loss. HENT: Negative for sore throat and trouble swallowing. Respiratory: Negative for cough, chest tightness and shortness of breath. Cardiovascular: Negative for palpitations. Gastrointestinal: Negative for abdominal pain, constipation, diarrhea, nausea and vomiting. Endocrine: Negative for cold intolerance and heat intolerance. Genitourinary: Negative for dysuria and frequency. Musculoskeletal: Negative for gait problem. Neurological: Positive for dizziness (at times). Negative for light-headedness and headaches. Psychiatric/Behavioral: Positive for agitation, dysphoric mood and sleep disturbance. Negative for hallucinations, self-injury and suicidal ideas. The patient is nervous/anxious. Physical Exam Constitutional: General: She is not in acute distress. Appearance: She is well-developed. She is not ill-appearing or toxic-appearing. HENT: Head: Normocephalic. Neck: Thyroid: No thyromegaly. Cardiovascular: Rate and Rhythm: Normal rate and regular rhythm. Heart sounds: Normal heart sounds. Pulmonary: Effort: Pulmonary effort is normal. No respiratory distress. Breath sounds: Normal breath sounds. No wheezing, rhonchi or rales. Abdominal: General: Bowel sounds are normal. There is no distension. Palpations: Abdomen is soft. Tenderness: There is no abdominal tenderness. Musculoskeletal: General: Normal range of motion. Cervical back: Normal range of motion. Right lower leg: No edema. Left lower leg: No edema. Skin: General: Skin is warm and dry. Comments: There is moist appearing rash between toes on right foot. No open wounds noted Neurological: Mental Status: She is alert and oriented to person, place, and time. Gait: Gait normal. Psychiatric: Attention and Perception: Attention normal. (more content not included)... [facility] 10-10-2024 Evaluation + Plan note Associated Problem(s): Viral illness Feeling improvement No longer having abnormal stools but should reach out if they reoccur Can use otc cold medication prn Work note provided [facility] 10-10-2024 Evaluation + Plan note Associated Problem(s): Anxiety disorder Chronic Improved Continue prozac and buspar. [facility] 10-10-2024 Miscellaneous Notes Associated Problem(s): Viral illness Feeling improvement No longer having abnormal stools but should reach out if they reoccur Can use otc cold medication prn Work note provided Associated Problem(s): Anxiety disorder Chronic Improved Continue prozac and buspar. Associated Problem(s): Depression, recurrent Chronic Improved Continue prozac Recommended cognitive behavioral therapy Recommended self care-mindfulness meditation, exercise, and adequate sleep. Seek emergent help for any worsening of depression or thoughts of harming self or others. Associated Problem(s): Hyperlipidemia Chronic Last lipid panel done 07/11/24 Continue lipitor as ordered Associated Problem(s): Fibromyalgia Chronic Improved with lyrica. Refill sent Oarrs reviewed today CSA signed 07/18/24 Drug screen done 07/18/24 Associated Problem(s): Hypothyroidism, adult TSH completed 10/03/24 showed low at 0.34. Dose of synthroid changed from 100 mcg to 88 mcg and was encouraged to get repeat TSH in 6 weeks. Did not get ordered thyroid ultrasound that was ordered at last appointment 05/22/24. Encouraged to schedule this as she has had thyroid ultrasound that showed asymmetric enlargement of the right thyroid lobe 02/21/19 Plan: Continue synthroid Get repeat TSH in 6 weeks Schedule ordered thyroid ultrasound documented in this encounter [facility] 10-10-2024 Evaluation + Plan note Associated Problem(s): Depression, recurrent Chronic Improved Continue prozac Recommended cognitive behavioral therapy Recommended self care-mindfulness meditation, exercise, and adequate sleep. Seek emergent help for any worsening of depression or thoughts of harming self or others. [facility] 10-10-2024 Evaluation + Plan note Associated Problem(s): Hyperlipidemia Chronic Last lipid panel done 07/11/24 Continue lipitor as ordered [facility] 10-10-2024 Evaluation + Plan note Associated Problem(s): Fibromyalgia Chronic Improved with lyrica. Refill sent Oarrs reviewed today CSA signed 07/18/24 Drug screen done 07/18/24 [facility] 10-10-2024 Evaluation + Plan note Associated Problem(s): Hypothyroidism, adult TSH completed 10/03/24 showed low at 0.34. Dose of synthroid changed from 100 mcg to 88 mcg and was encouraged to get repeat TSH in 6 weeks. Did not get ordered thyroid ultrasound that was ordered at last appointment 05/22/24. Encouraged to schedule this as she has had thyroid ultrasound that showed asymmetric enlargement of the right thyroid lobe 02/21/19 Plan: Continue synthroid Get repeat TSH in 6 weeks Schedule ordered thyroid ultrasound [facility] 10-10-2024 History of Present illness Narrative [facility] [address] [facility] [address] [place] [id number] Name: Tish Bae Age: 49 y.o. Sex: female : 1975 Chief Complaint Patient presents with Follow-up Patient is here for follow up for chronic care. She has had black tarry stools several times since last week, today's was normal color. She has no appetite, nausea, congestion, productive cough with clear phlegm. Tish Bae is a 49 y.o. female being seen on 10/10/24 presenting with Follow-up (Patient is here for follow up for chronic care. She has had black tarry stools several times since last week, today's was normal color. She has no appetite, nausea, congestion, productive cough with clear phlegm.) . History of Present Illness: Here for hypothyroidism, hyperlipidemia, fibromyalgia, depression and anxiety. Hypothyroidism-TSH completed 10/03/24 showed low at 0.34. Dose of synthroid changed from 100 mcg to 88 mcg and was encouraged to get repeat TSH in 6 weeks. Did not get ordered thyroid ultrasound that was ordered at last appointment 05/22/24. Encouraged to schedule this as she has had thyroid ultrasound that showed asymmetric enlargement of the right thyroid lobe 02/21/19 Depression and anxiety- Taking prozac and buspar. Feeling better on medication. Denies any suicidal ideations/ homicidal ideations. Is not in counseling at this time Hyperlipidemia-Taking lipitor and tolerating medication. Last lipid panel completed 07/11/24. Not following a specific diet. Does not exercise. Fibromyalgia- Diagnosed many years ago. In the past did not find gabapentin or Cymbalta beneficial. Now taking lyrica and feels it helps. Did have trouble getting lyrica filled over the last month with changes she had to her insurance but now has that figured out. Needs a new refill Last week was sick with suspected influenza. States she did not get tested, feeling some improvement. Did have black appearing and slimy stool. No noted blood. Last abnormal stool was yesterday and today was soft but brown and normal appearing. Has not been using any otc medication. Needs a work note to return to work tomorrow Thyroid Problem Presents for follow-up visit. Symptoms include anxiety, depressed mood and fatigue. Patient reports no cold intolerance, constipation, dry skin, hair loss, heat intolerance, leg swelling, palpitations, weight gain or weight loss. Past treatments include levothyroxine. Prior procedures include thyroid ultrasound. Past Medical History: Past Medical History: Diagnosis Date Anemia Anxiety Depression Disease of thyroid gland Injury of back 2004 Viral illness 10/10/2024 Past Surgical History: Past Surgical History: Procedure Laterality Date BREAST BIOPSY Left 2004 benign BREAST SURGERY FOOT SURGERY HYSTERECTOMY TONSILLECTOMY TUBAL LIGATION Family History: Family History Adopted: Yes Problem Relation Age of Onset Kidney failure Mother ADD / ADHD Daughter Kidney failure Brother ADD / ADHD Son Breast cancer Neg Hx Medications: Current Outpatient Medications: atorvastatin (LIPITOR) 20 MG tablet, Take 1 (one) tablet (20 mg total) by mouth every night at bedtime ., Disp: 30 tablet, Rfl: 11 busPIRone (BUSPAR) 7.5 MG tablet, Take 1 (one) tablet (7.5 mg total) by mouth 2 (two) times a day ., Disp: 60 tablet, Rfl: 11 FLUoxetine (PROZAC) 20 MG capsule, Take 1 (one) capsule (20 mg total) by mouth daily ., Disp: 30 capsule, Rfl: 11 levothyroxine (SYNTHROID, LEVOTHROID) 88 MCG tablet, Take 1 (one) tablet (88 mcg total) by mouth every morning ., Disp: 90 tablet, Rfl: 3 pregabalin (LYRICA) 75 MG capsule, Take 1 (one) capsule (75 mg total) by mouth 2 (two) times a day (Days supply per fill: 30) ., Disp: 60 capsule, Rfl: 2 Allergies: Allergies: Patient has no known allergies. Social History: Social History Tobacco Use Smoking status: Every Day Current packs/day: 0.50 Average packs/day: 0.5 packs/day for 33.0 years (16.5 ttl pk-yrs) Types: Cigarettes Smokeless tobacco: Never Vaping Use Vaping status: Never Used Substance Use Topics Alcohol use: Never Drug use: Never Health Maintenance: Immunizations: There is no immunization history on file for this patient. Oarrs: OARRS/NARxCHECK Report Received and Assessed: 10/10/2024 Date controlled substance agreement signed: 07/18/2024 Date of last drug screen: 07/18/2024 Functional Assessment: No data found Review of Systems Constitutional: Positive for fatigue. Negative for chills, fever, weight gain and weight loss. HENT: Negative for congestion, rhinorrhea, sinus pressure, sinus pain, sore throat and trouble swallowing. Respiratory: Positive for cough. Negative for chest tightness and shortness of breath. Cardiovascular: Negative for chest pain and palpitations. Gastrointestinal: Negative for abdominal pain, blood in stool, constipation, nausea and vomiting. Endocrine: Negative for cold intolerance and heat intolerance. Genitourinary: Negative for dysuria and frequency. Musculoskeletal: Negative for gait problem. Skin: Negative for rash. Neurological: Negative for dizziness, light-headedness and headaches. Psychiatric/Behavioral: Negative for self-injury and suicidal ideas. The patient is nervous/anxious. Physical Exam Constitutional: General: She is not in acute distress. Appearance: She is well-developed. She is not ill-appearing or toxic-appearing. HENT: Head: Normocephalic. Right Ear: Tympanic membrane, ear canal and external ear normal. Left Ear: Tympanic membrane, ear canal and external ear normal. Nose: Nose normal. Mouth/Throat: Mouth: Mucous membranes are moist. Pharynx: Oropharynx is clear. Eyes: General: Right eye: No discharge. Left eye: No discharge. Conjunctiva/sclera: Conjunctivae normal. Neck: Thyroid: Thyromegaly present. Cardiovascular: Rate and Rhythm: Normal rate and regular rhythm. Heart sounds: Normal heart sounds. No murmur heard. Pulmonary: Effort: Pulmonary effort is normal. No respiratory distress. Breath sounds: Normal breath sounds. No wheezing, rhonchi or rales. Abdominal: General: Bowel sounds are normal. There is no distension. Palpations: Abdomen is soft. Tenderness: There is no guarding or rebound. Musculoskeletal: General: Normal range of motion. Cervical back: Normal range of motion. Right lower leg: No edema. Left lower leg: No edema. Skin: General: Skin is warm and dry. Capillary Refill: Capillary refill takes less than 2 seconds. Findings: No rash. Neurological: General: No focal deficit present. Mental Status: She is alert and oriented to person, place, and time. Gait: Gait normal. Psychiatric: Mood and Affect: Mood normal. Behavior: Behavior normal. Thought Content: Thought content normal. Judgment: Judgment normal. BP 128/87 (BP Location: Left arm, Patient Position: Sitting, BP Cuff Size: Adult) Pulse 68 Temp 97.8 F (36.6 C) (Oral) Resp 14 Ht 5' 3 Wt 68.8 kg (151 lb 9.6 oz) LMP (LMP Unknown) SpO2 98% BMI 26.85 kg/m Height: 5' 3 Weight: 68.8 kg (151 lb 9.6 oz) Body mass index is 26.85 kg/m . Discussed elevated Body Mass Index (BMI): Advised regular exercise. Discussed elevated Body Mass Index (BMI): Advised healthy and appropriate diet. Rationale: Overweight (Findings) BMI Assessment and Plan: Problem List Items Addressed This Visit Hypothyroidism, adult TSH completed 10/03/24 showed low at 0.34. Dose of synthroid changed from 100 mcg to 88 mcg and was encouraged to get repeat TSH in 6 weeks. Did not get ordered thyroid ultrasound that was ordered at last appointment 05/22/24. Encouraged to schedule this as she has had thyroid ultrasound that showed asymmetric enlargement of the right thyroid lobe 02/21/19 Plan: Continue synthroid Get repeat TSH in 6 weeks Schedule ordered thyroid ultrasound Anxiety disorder Chronic Improved Continue prozac and buspar. Depression, recurrent Chronic Improved Continue prozac Recommended cognitive behavioral therapy Recommended self care-mindfulness meditation, exercise, and adequate sleep. Seek emergent help for any worsening of depression or thoughts of harming self or others. Hyperlipidemia Chronic Last lipid panel done 07/11/24 Continue lipitor as ordered Fibromyalgia Chronic Improved with lyrica. Refill sent Oarrs reviewed today CSA signed 07/18/24 Drug screen done 07/18/24 Relevant Medications pregabalin (LYRICA) 75 MG capsule Viral illness - Primary Feeling improvement No longer having abnormal stools but should reach out if they reoccur Can use otc cold medication prn Work note provided I am managing Tish Bae for complex chronic condition(s) serving as the focal point for the patient's care for consistency and continuity over time. 3 month follow up or sooner if needed Recent Results (from the past 2 weeks) TSH Collection Time: 10/03/24 9:35 AM Result Value Ref Range TSH 0.34 (L) mIU/L Polly Velasco CNP 10/10/24 7:56 AM documented in this encounter [facility] 10-10-2024 Note [facility] [address] [facility] [address] [facility] [id number] Name: Tish Bae Age: 49 y.o. Sex: female : 1975 Chief Complaint Patient presents with Follow-up Patient is here for follow up for chronic care. She has had black tarry stools several times since last week, today's was normal color. She has no appetite, nausea, congestion, productive cough with clear phlegm. Tish Bae is a 49 y.o. female being seen on 10/10/24 presenting with Follow-up (Patient is here for follow up for chronic care. She has had black tarry stools several times since last week, today's was normal color. She has no appetite, nausea, congestion, productive cough with clear phlegm.) . History of Present Illness: Here for hypothyroidism, hyperlipidemia, fibromyalgia, depression and anxiety. Hypothyroidism-TSH completed 10/03/24 showed low at 0.34. Dose of synthroid changed from 100 mcg to 88 mcg and was encouraged to get repeat TSH in 6 weeks. Did not get ordered thyroid ultrasound that was ordered at last appointment 05/22/24. Encouraged to schedule this as she has had thyroid ultrasound that showed asymmetric enlargement of the right thyroid lobe 02/21/19 Depression and anxiety- Taking prozac and buspar. Feeling better on medication. Denies any suicidal ideations/ homicidal ideations. Is not in counseling at this time Hyperlipidemia-Taking lipitor and tolerating medication. Last lipid panel completed 07/11/24. Not following a specific diet. Does not exercise. Fibromyalgia- Diagnosed many years ago. In the past did not find gabapentin or Cymbalta beneficial. Now taking lyrica and feels it helps. Did have trouble getting lyrica filled over the last month with changes she had to her insurance but now has that figured out. Needs a new refill Last week was sick with suspected influenza. States she did not get tested, feeling some improvement. Did have black appearing and slimy stool. No noted blood. Last abnormal stool was yesterday and today was soft but brown and normal appearing. Has not been using any otc medication. Needs a work note to return to work tomorrow Thyroid Problem Presents for follow-up visit. Symptoms include anxiety, depressed mood and fatigue. Patient reports no cold intolerance, constipation, dry skin, hair loss, heat intolerance, leg swelling, palpitations, weight gain or weight loss. Past treatments include levothyroxine. Prior procedures include thyroid ultrasound. Past Medical History: Past Medical History: Diagnosis Date Anemia Anxiety Depression Disease of thyroid gland Injury of back 2004 Viral illness 10/10/2024 Past Surgical History: Past Surgical History: Procedure Laterality Date BREAST BIOPSY Left 2004 benign BREAST SURGERY FOOT SURGERY HYSTERECTOMY TONSILLECTOMY TUBAL LIGATION Family History: Family History Adopted: Yes Problem Relation Age of Onset Kidney failure Mother ADD / ADHD Daughter Kidney failure Brother ADD / ADHD Son Breast cancer Neg Hx Medications: Current Outpatient Medications: atorvastatin (LIPITOR) 20 MG tablet, Take 1 (one) tablet (20 mg total) by mouth every night at bedtime ., Disp: 30 tablet, Rfl: 11 busPIRone (BUSPAR) 7.5 MG tablet, Take 1 (one) tablet (7.5 mg total) by mouth 2 (two) times a day ., Disp: 60 tablet, Rfl: 11 FLUoxetine (PROZAC) 20 MG capsule, Take 1 (one) capsule (20 mg total) by mouth daily ., Disp: 30 capsule, Rfl: 11 levothyroxine (SYNTHROID, LEVOTHROID) 88 MCG tablet, Take 1 (one) tablet (88 mcg total) by mouth every morning ., Disp: 90 tablet, Rfl: 3 pregabalin (LYRICA) 75 MG capsule, Take 1 (one) capsule (75 mg total) by mouth 2 (two) times a day (Days supply per fill: 30) ., Disp: 60 capsule, Rfl: 2 Allergies: Allergies: Patient has no known allergies. Social History: Social History Tobacco Use Smoking status: Every Day Current packs/day: 0.50 Average packs/day: 0.5 packs/day for 33.0 years (16.5 ttl pk-yrs) Types: Cigarettes Smokeless tobacco: Never Vaping Use Vaping status: Never Used Substance Use Topics Alcohol use: Never Drug use: Never Health Maintenance: Immunizations: There is no immunization history on file for this patient. Oarrs: OARRS/NARxCHECK Report Received and Assessed: 10/10/2024 Date controlled substance agreement signed: 07/18/2024 Date of last drug screen: 07/18/2024 Functional Assessment: No data found Review of Systems Constitutional: Positive for fatigue. Negative for chills, fever, weight gain and weight loss. HENT: Negative for congestion, rhinorrhea, sinus pressure, sinus pain, sore throat and trouble swallowing. Respiratory: Positive for cough. Negative for chest tightness and shortness of breath. Cardiovascular: Negative for chest pain and palpitations. Gastrointestinal: Negative for abdominal pain, blood in stool, constipation, nausea and vomiting (more content not included)... [facility] Ambulatory 10-10-2024 Instructions Polly Velasco CNP - 10/10/2024 11:28 AM EST Please call and schedule your thyroid ultrasound appointment. [phone] documented in this encounter [facility] 07-18-2024 Evaluation + Plan note Associated Problem(s): Anxiety disorder Chronic Improved but still some anxiousness. Thyroid noted to be low so hopefully will improve with thyroid dose adjustment Continue prozac and buspar. [facility] 07-18-2024 Miscellaneous Notes Associated Problem(s): Anxiety disorder Chronic Improved but still some anxiousness. Thyroid noted to be low so hopefully will improve with thyroid dose adjustment Continue prozac and buspar. Associated Problem(s): Depression, recurrent (HCC) Chronic Improved Continue prozac Recommended cognitive behavioral therapy Recommended self care-mindfulness meditation, exercise, and adequate sleep. Seek emergent help for any worsening of depression or thoughts of harming self or others. Associated Problem(s): Fibromyalgia Chronic Worsening as she is not on medication Pain mostly to legs Has in the past been on gabapentin and cymbalta and did not feel they worked well After discussion will start lyrica. Action of medication and side effects reviewed with patient Oarrs reviewed today CSA signed 07/18/24 Drug screen done 07/18/24 Associated Problem(s): Hyperlipidemia Chronic Last lipid panel done 07/11/24 Continue lipitor as ordered Associated Problem(s): Hypothyroidism, adult Chronic Last TSH 0.16 07/11/24 Decrease synthroid dose to 100 mcg daily Get repeat TSH in 6 weeks Get ordered ultrasound documented in this encounter [facility] 07-18-2024 Evaluation + Plan note Associated Problem(s): Depression, recurrent (HCC) Chronic Improved Continue prozac Recommended cognitive behavioral therapy Recommended self care-mindfulness meditation, exercise, and adequate sleep. Seek emergent help for any worsening of depression or thoughts of harming self or others. [facility] 07-18-2024 Evaluation + Plan note Associated Problem(s): Fibromyalgia Chronic Worsening as she is not on medication Pain mostly to legs Has in the past been on gabapentin and cymbalta and did not feel they worked well After discussion will start lyrica. Action of medication and side effects reviewed with patient Oarrs reviewed today CSA signed 07/18/24 Drug screen done 07/18/24 [facility] 07-18-2024 Evaluation + Plan note Associated Problem(s): Hyperlipidemia Chronic Last lipid panel done 07/11/24 Continue lipitor as ordered [facility] 07-18-2024 Evaluation + Plan note Associated Problem(s): Hypothyroidism, adult Chronic Last TSH 0.16 07/11/24 Decrease synthroid dose to 100 mcg daily Get repeat TSH in 6 weeks Get ordered ultrasound [facility] 07-18-2024 Instructions Polly Velasco CNP - 07/18/2024 12:16 PM EST It is time to get your Mammogram done. Please call and schedule your appointment. [facility] ( [facility]) [address] [place], [place] [id number] Please schedule thyroid ultrasound as well Get lab work in 6 weeks documented in this encounter [facility] 07-18-2024 History of Present illness Narrative [facility] [address] [facility] [address] [facility] [id number] Name: Tish E Kathia Age: 49 y.o. Sex: female : 1975 Chief Complaint Patient presents with Follow-up Patient here for follow up for chronic care. She does not want a flu shot. Gap Closure (Health Maintenance) Mammogram due on 09/29/2023 Tish Jessica Bae is a 49 y.o. female being seen on 07/18/24 presenting with Follow-up (Patient here for follow up for chronic care. She does not want a flu shot. ) and Gap Closure (Health Maintenance) (Mammogram due on 09/29/2023 ) . History of Present Illness: Here for hypothyroidism, hyperlipidemia, fibromyalgia, depression and anxiety. Hypothyroidism- Had been out of medication for one year. Synthroid 125 mcg restarted on 05/22/24. Admits to being compliant with taking medication. Did get repeat TSH done 07/11/24 and it was low at 0.16, will adjust medication today. Continues to have some tenderness and enlargement to thyroid gland. Did not get ordered thyroid ultrasound that was ordered at last appointment 05/22/24. Encouraged to schedule this as she has had thyroid ultrasound that showed asymmetric enlargement of the right thyroid lobe 02/21/19. Does note worsening anxiousness and hair loss. Depression and anxiety- Taking prozac and buspar. Feeling better since restarting medication 2 months ago. Not feeling as down or sad. Does have anxiousness but could be related to thyroid abnormality as well. Denies any suicidal ideations/ homicidal ideations. Is not in counseling at this time Hyperlipidemia-Taking lipitor and tolerating medication. Last lipid panel completed 07/11/24. Not following a specific diet. Does not exercise. Fibromyalgia- Diagnosed many years ago. Use to go be on gabapentin but has been without for a couple years. Did not feel the gabapentin worked well. Has also tried Cymbalta. Has noted increase pain in legs and feet and feels it is worse with prolonged walking/standing and when she works. Currently not using anything for pain. Thyroid Problem Presents for follow-up visit. Symptoms include anxiety and depressed mood. Patient reports no cold intolerance, constipation, diarrhea, dry skin, fatigue, hair loss, heat intolerance, leg swelling, palpitations, weight gain or weight loss. Past treatments include levothyroxine. Past Medical History: Past Medical History: Diagnosis Date Anxiety Depression Disease of thyroid gland Injury of back 2004 Past Surgical History: Past Surgical History: Procedure Laterality Date BREAST BIOPSY Left 2004 benign BREAST SURGERY FOOT SURGERY HYSTERECTOMY TONSILLECTOMY TUBAL LIGATION Family History: Family History Problem Relation Age of Onset Kidney failure Mother Kidney failure Brother ADD / ADHD Daughter ADD / ADHD Son Breast cancer Neg Hx Medications: Current Outpatient Medications: atorvastatin (LIPITOR) 20 MG tablet, Take 1 (one) tablet (20 mg total) by mouth every night at bedtime ., Disp: 30 tablet, Rfl: 11 busPIRone (BUSPAR) 7.5 MG tablet, Take 1 (one) tablet (7.5 mg total) by mouth 2 (two) times a day ., Disp: 60 tablet, Rfl: 11 FLUoxetine (PROZAC) 20 MG capsule, Take 1 (one) capsule (20 mg total) by mouth daily ., Disp: 30 capsule, Rfl: 11 levothyroxine (SYNTHROID, LEVOTHROID) 100 MCG tablet, Take 1 (one) tablet (100 mcg total) by mouth every morning ., Disp: 30 tablet, Rfl: 11 pregabalin (LYRICA) 75 MG capsule, Take 1 (one) capsule (75 mg total) by mouth 2 (two) times a day (Days supply per fill: 90) ., Disp: 60 capsule, Rfl: 2 Allergies: Allergies: Patient has no known allergies. Social History: Social History Tobacco Use Smoking status: Some Days Current packs/day: 0.50 Average packs/day: 0.5 packs/day for 33.0 years (16.5 ttl pk-yrs) Types: Cigarettes Smokeless tobacco: Never Vaping Use Vaping status: Never Used Substance Use Topics Alcohol use: Never Drug use: Never Health Maintenance: Immunizations: There is no immunization history on file for this patient. Oarrs: OARRS/NARxCHECK Report Received and Assessed: 07/18/2024 Date controlled substance agreement signed: 07/18/2024 Date of last drug screen: 07/18/2024 Functional Assessment: No data found Review of Systems Constitutional: Negative for appetite change, fatigue, unexpected weight change, weight gain and weight loss. HENT: Negative for sore throat and trouble swallowing. Respiratory: Negative for cough and shortness of breath. Cardiovascular: Negative for chest pain and palpitations. Gastrointestinal: Negative for abdominal pain, constipation, diarrhea, nausea and vomiting. Endocrine: Negative for cold intolerance and heat intolerance. Genitourinary: Negative. Musculoskeletal: Positive for arthralgias, myalgias and neck pain. Negative for gait problem. Skin: Negative for rash. Neurological: Negative for dizziness, light-headedness and headaches. Psychiatric/Behavioral: Positive for sleep disturbance. Negative for dysphoric mood, self-injury and suicidal ideas. The patient is nervous/anxious. Physical Exam Constitutional: General: She is not in acute distress. Appearance: She is well-developed. She is not ill-appearing or toxic-appearing. HENT: Head: Normocephalic. Eyes: General: Right eye: No discharge. Left eye: No discharge. Conjunctiva/sclera: Conjunctivae normal. Neck: Thyroid: Thyroid tenderness present. No thyroid mass. Cardiovascular: Rate and Rhythm: Normal rate and [...] rebound. Musculoskeletal: General: Normal range of motion. Right lower leg: No edema. Left lower leg: No edema. Skin: General: Skin is warm and dry. Neurological: General: No focal deficit present. Mental Status: She is alert and oriented to person, place, and time. Gait: Gait normal. Psychiatric: Mood and Affect: Mood normal. Behavior: Behavior normal. Thought Content: Thought content normal. Judgment: Judgment normal. BP 106/70 (BP Location: Left arm, Patient Position: Sitting, BP Cuff Size: Adult) Pulse 66 Temp 97.9 F (36.6 C) (Oral) Resp 14 Ht 5' 3 Wt 68.6 kg (151 lb 3.2 oz) LMP (LMP Unknown) SpO2 95% BMI 26.78 kg/m Height: 5' 3 Weight: 68.6 kg (151 lb 3.2 oz) Body mass index is 26.78 kg/m . Discussed elevated Body Mass Index (BMI): Advised regular exercise. Discussed elevated Body Mass Index (BMI): Advised healthy and appropriate diet. Rationale: Overweight (Findings) BMI Assessment and Plan: Problem List Items Addressed This Visit Hypothyroidism, adult Chronic Last TSH 0.16 07/11/24 Decrease synthroid dose to 100 mcg daily Get repeat TSH in 6 weeks Get ordered ultrasound Relevant Medications levothyroxine (SYNTHROID, LEVOTHROID) 100 MCG tablet Other Relevant Orders TSH Anxiety disorder Chronic Improved but still some anxiousness. Thyroid noted to be low so hopefully will improve with thyroid dose adjustment Continue prozac and buspar. Relevant Medications FLUoxetine (PROZAC) 20 MG capsule busPIRone (BUSPAR) 7.5 MG tablet Depression, recurrent (HCC) Chronic Improved Continue prozac Recommended cognitive behavioral therapy Recommended self care-mindfulness meditation, exercise, and adequate sleep. Seek emergent help for any worsening of depression or thoughts of harming self or others. Relevant Medications FLUoxetine (PROZAC) 20 MG capsule busPIRone (BUSPAR) 7.5 MG tablet Hyperlipidemia Chronic Last lipid panel done 07/11/24 Continue lipitor as ordered Relevant Medications atorvastatin (LIPITOR) 20 MG tablet Fibromyalgia - Primary Chronic Worsening as she is not on medication Pain mostly to legs Has in the past been on gabapentin and cymbalta and did not feel they worked well After discussion will start lyrica. Action of medication and side effects reviewed with patient Oarrs reviewed today CSA signed 07/18/24 Drug screen done 07/18/24 Relevant Medications pregabalin (LYRICA) 75 MG capsule Other Relevant Orders Drugs of Abuse Screen, Urine Other Visit Diagnoses Screening mammogram for breast cancer Relevant Orders Mammography Screening Johny Bilateral I am managing Tish Lopez [facility] for complex chronic condition(s) serving as the focal point for the patient's care for consistency and continuity over time. 3 month follow up or sooner if needed Recent Results (from the past 2 weeks) CBC Auto Differential Collection Time: 07/11/24 9:48 AM Result Value Ref Range WBC 3.5 (L) 3.8 - 10.8 Thousand/uL RBC 3.80 3.80 - 5.10 Million/uL Hemoglobin 11.5 (L) 11.7 - 15.5 g/dL Hematocrit 35.3 35.0 - 45.0 % MCV 92.9 80.0 - 100.0 fL MCH 30.3 27.0 - 33.0 pg MCHC 32.6 32.0 - 36.0 g/dL RDW 12.1 11.0 - 15.0 % Platelets 219 140 - 400 Thousand/uL MPV 11.1 7.5 - 12.5 fL Absolute Neutrophils 1,950 1,500 - 7,800 cells/uL Absolute Lymphocytes 1,155 850 - 3,900 cells/uL Absolute Monocytes 308 200 - 950 cells/uL Absolute Eosinophils 49 15 - 500 cells/uL Absolute Basophils 39 0 - 200 cells/uL Neutrophils 55.7 % Lymphocytes 33.0 % Monocytes 8.8 % Eosinophils 1.4 % Basophils 1.1 % Hemoglobin A1c Collection Time: 07/11/24 9:48 AM Result Value Ref Range Hemoglobin A1C 5.2 <5.7 % of total Hgb Lipid Panel Collection Time: 07/11/24 9:48 AM Result Value Ref Range Cholesterol 107 <200 mg/dL HDL 35 (L) > OR = 50 mg/dL Triglycerides 94 <150 mg/dL LDL Cholesterol 54 mg/dL (calc) CHOL/HDL Ratio 3.1 <5.0 (calc) Non HDL Cholesterol 72 <130 mg/dL (calc) Comprehensive Metabolic Panel Collection Time: 07/11/24 9:48 AM Result Value Ref Range Glucose 77 65 - 99 mg/dL BUN 12 7 - 25 mg/dL Creatinine 0.69 0.50 - 1.03 mg/dL eGFR 105 > OR = 60 mL/min/1.73m2 BUN/Creatinine Ratio SEE NOTE: 6 - 22 (calc) Sodium 139 135 - 146 mmol/L Potassium 4.3 3.5 - 5.3 mmol/L Chloride 105 98 - 110 mmol/L CO2 30 20 - 32 mmol/L Calcium 8.7 8.6 - 10.4 mg/dL Total Protein 6.8 6.1 - 8.1 g/dL Albumin, Serum 3.6 3.6 - 5.1 g/dL Globulin 3.2 1.9 - 3.7 g/dL (calc) Albumin/Globulin Ratio 1.1 1.0 - 2.5 (calc) Bilirubin, Total 0.5 0.2 - 1.2 mg/dL Alkaline Phosphatase 80 37 - 153 U/L AST 16 10 - 35 U/L ALT 11 6 - 29 U/L TSH Collection Time: 07/11/24 9:48 AM Result Value Ref Range TSH 0.16 (L) mIU/L Polly Velasco CNP 07/18/24 12:14 PM documented in this encounter [facility] 07-18-2024 Note [facility] [address] [facility] [address] [place] [id number] Name: Tish aBe Age: 49 y.o. Sex: female : 1975 Chief Complaint Patient presents with Follow-up Patient here for follow up for chronic care. She does not want a flu shot. Gap Closure (Health Maintenance) Mammogram due on 09/29/2023 Tish Bae is a 49 y.o. female being seen on 07/18/24 presenting with Follow-up (Patient here for follow up for chronic care. She does not want a flu shot. ) and Gap Closure (Health Maintenance) (Mammogram due on 09/29/2023 ) . History of Present Illness: Here for hypothyroidism, hyperlipidemia, fibromyalgia, depression and anxiety. Hypothyroidism- Had been out of medication for one year. Synthroid 125 mcg restarted on 05/22/24. Admits to being compliant with taking medication. Did get repeat TSH done 07/11/24 and it was low at 0.16, will adjust medication today. Continues to have some tenderness and enlargement to thyroid gland. Did not get ordered thyroid ultrasound that was ordered at last appointment 05/22/24. Encouraged to schedule this as she has had thyroid ultrasound that showed asymmetric enlargement of the right thyroid lobe 02/21/19. Does note worsening anxiousness and hair loss. Depression and anxiety- Taking prozac and buspar. Feeling better since restarting medication 2 months ago. Not feeling as down or sad. Does have anxiousness but could be related to thyroid abnormality as well. Denies any suicidal ideations/ homicidal ideations. Is not in counseling at this time Hyperlipidemia-Taking lipitor and tolerating medication. Last lipid panel completed 07/11/24. Not following a specific diet. Does not exercise. Fibromyalgia- Diagnosed many years ago. Use to go be on gabapentin but has been without for a couple years. Did not feel the gabapentin worked well. Has also tried Cymbalta. Has noted increase pain in legs and feet and feels it is worse with prolonged walking/standing and when she works. Currently not using anything for pain. Thyroid Problem Presents for follow-up visit. Symptoms include anxiety and depressed mood. Patient reports no cold intolerance, constipation, diarrhea, dry skin, fatigue, hair loss, heat intolerance, leg swelling, palpitations, weight gain or weight loss. Past treatments include levothyroxine. Past Medical History: Past Medical History: Diagnosis Date Anxiety Depression Disease of thyroid gland Injury of back 2004 Past Surgical History: Past Surgical History: Procedure Laterality Date BREAST BIOPSY Left 2004 benign BREAST SURGERY FOOT SURGERY HYSTERECTOMY TONSILLECTOMY TUBAL LIGATION Family History: Family History Problem Relation Age of Onset Kidney failure Mother Kidney failure Brother ADD / ADHD Daughter ADD / ADHD Son Breast cancer Neg Hx Medications: Current Outpatient Medications: atorvastatin (LIPITOR) 20 MG tablet, Take 1 (one) tablet (20 mg total) by mouth every night at bedtime ., Disp: 30 tablet, Rfl: 11 busPIRone (BUSPAR) 7.5 MG tablet, Take 1 (one) tablet (7.5 mg total) by mouth 2 (two) times a day ., Disp: 60 tablet, Rfl: 11 FLUoxetine (PROZAC) 20 MG capsule, Take 1 (one) capsule (20 mg total) by mouth daily ., Disp: 30 capsule, Rfl: 11 levothyroxine (SYNTHROID, LEVOTHROID) 100 MCG tablet, Take 1 (one) tablet (100 mcg total) by mouth every morning ., Disp: 30 tablet, Rfl: 11 pregabalin (LYRICA) 75 MG capsule, Take 1 (one) capsule (75 mg total) by mouth 2 (two) times a day (Days supply per fill: 90) ., Disp: 60 capsule, Rfl: 2 Allergies: Allergies: Patient has no known allergies. Social History: Social History Tobacco Use Smoking status: Some Days Current packs/day: 0.50 Average packs/day: 0.5 packs/day for 33.0 years (16.5 ttl pk-yrs) Types: Cigarettes Smokeless tobacco: Never Vaping Use Vaping status: Never Used Substance Use Topics Alcohol use: Never Drug use: Never Health Maintenance: Immunizations: There is no immunization history on file for this patient. Oarrs: OARRS/NARxCHECK Report Received and Assessed: 07/18/2024 Date controlled substance agreement signed: 07/18/2024 Date of last drug screen: 07/18/2024 Functional Assessment: No data found Review of Systems Constitutional: Negative for appetite change, fatigue, unexpected weight change, weight gain and weight loss. HENT: Negative for sore throat and trouble swallowing. Respiratory: Negative for cough and shortness of breath. Cardiovascular: Negative for chest pain and palpitations. Gastrointestinal: Negative for abdominal pain, constipation, diarrhea, nausea and vomiting. Endocrine: Negative for cold intolerance and heat intolerance. Genitourinary: Negative. Musculoskeletal: Positive for arthralgias, myalgias and neck pain. Negative for gait problem. Skin: Negative for rash. Neurological: Negative for dizziness, light-he (more content not included)... [facility] Ambulatory 05-22-2024 Note [facility] [address] [facility] [address] [place] [id number] Name: Tish Bae Age: 49 y.o. Sex: female : 1975 Chief Complaint Patient presents with Depression Patient states she stopped all of her medication a year ago. She states she just gave up. She is tearful when answering questions. Anxiety Thyroid Problem Tish Bae is a 49 y.o. female being seen on 05/22/24 presenting with Depression (Patient states she stopped all of her medication a year ago. She states she just gave up. She is tearful when answering questions.), Anxiety, and Thyroid Problem . History of Present Illness: Here for hypothyroidism, hyperlipidemia, depression and anxiety. Patient has not been seen in office in >1 year and has been out of medication. Reports she got tired of taking medication so stopped them all. Hypothyroidism- Has been out of synthroid for >1 year. Has noted trouble swallowing and enlargement to thyroid since running out of medication. Feels fatigued. Did have thyroid ultrasound that showed asymmetric enlargement of the right thyroid lobe 02/21/19. Depression and anxiety- Was previously on prozac and buspar but has been without medication for around one year. Feels worsening depression and anxiety. Has been under stress as she lost her house and insurance and had to release custody of her grandson she was raising. Denies any suicidal ideations/ homicidal ideations. Is not in counseling at this time Hyperlipidemia- Last lipid panel 09/22/22. Previously on lipitor prior to running out. Not following a specific diet. Does not exercise. Thyroid Problem Presents for follow-up visit. Symptoms include anxiety, cold intolerance, depressed mood, fatigue, heat intolerance and palpitations. Patient reports no constipation, diarrhea, dry skin, hair loss, leg swelling, weight gain or weight loss. Past treatments include levothyroxine. Past Medical History: Past Medical History: Diagnosis Date Anxiety Depression Disease of thyroid gland Injury of back 2004 Past Surgical History: Past Surgical History: Procedure Laterality Date BREAST BIOPSY Left 2004 benign BREAST SURGERY FOOT SURGERY HYSTERECTOMY TONSILLECTOMY TUBAL LIGATION Family History: Family History Problem Relation Age of Onset Kidney failure Mother Kidney failure Brother Breast cancer Neg Hx Medications: Current Outpatient Medications: atorvastatin (LIPITOR) 20 MG tablet, Take 1 (one) tablet (20 mg total) by mouth every night at bedtime ., Disp: 30 tablet, Rfl: 2 busPIRone (BUSPAR) 7.5 MG tablet, Take 1 (one) tablet (7.5 mg total) by mouth 2 (two) times a day ., Disp: 60 tablet, Rfl: 2 FLUoxetine (PROZAC) 20 MG capsule, Take 1 (one) capsule (20 mg total) by mouth daily ., Disp: 30 capsule, Rfl: 2 levothyroxine (SYNTHROID, LEVOTHROID) 125 MCG tablet, Take 1 (one) tablet (125 mcg total) by mouth every morning ., Disp: 30 tablet, Rfl: 2 Allergies: Allergies: Patient has no known allergies. Social History: Social History Tobacco Use Smoking status: Some Days Current packs/day: 0.50 Average packs/day: 0.5 packs/day for 33.0 years (16.5 ttl pk-yrs) Types: Cigarettes Smokeless tobacco: Never Vaping Use [...] Constitutional: Positive for fatigue. Negative for appetite change, unexpected weight change, weight gain and weight loss. HENT: Positive for trouble swallowing. Negative for sore throat. Eyes: Negative for visual disturbance. Respiratory: Negative for cough, chest tightness and shortness of breath. Cardiovascular: Positive for palpitations. Negative for chest pain. Gastrointestinal: Negative for abdominal pain, constipation, diarrhea, nausea and vomiting. Endocrine: Positive for cold intolerance and heat intolerance. Genitourinary: Negative for dysuria. Musculoskeletal: Negative for gait problem. Skin: Negative for rash and wound. Neurological: Positive for dizziness and headaches. Psychiatric/Behavioral: Positive for sleep disturbance. Negative for dysphoric mood, self-injury and suicidal ideas. The patient is nervous/anxious. Physical Exam Constitutional: General: She is not in acute distress. Appearance: She is well-developed. She is not ill-appearing or toxic-appearing. HENT: Head: Normocephalic. Eyes: General: Right eye: No discharge. Left eye: No discharge. Conjunctiva/sclera: Conjunctivae normal. Neck: Thyroid: No thyroid mass, thyromegaly or thyroid tenderness. Cardiovascular: Rate (more content not included)... [facility] 07-13-2023 Discharge summary Note Date/Time July 13, 2023 12:00pm [facility] Medical Records Department [address] [place] [address] Emergency Department Summary 07/13/23 MR#: [id number] Acct: [id number] Name: TISH BAE Rep #:[id number] : 1975 48 From: Denis Vaca MD PCP: POLLY VELASCO Status:REG ER Location: ED HPI History of Present Illness Chief Complaint: Chest Pain Onset/Context/Timing Onset: Today Activity at onset: gradual and onset Timing: Continuous Narrative Narrative: 48-year-old female past medical history of hypothyroidism presents with multiplesomatic complaints but mainly chest pain and generalized weakness. Additionally, she states that the left side of her body feels heavy. Her symptoms began at around 7:00 in the morning, 5 hours ago. However, they could have began earlier than that because she went to bed yesterday evening feeling well, and when she awoke at 7:00, she was having problems with generalized weakness of her bilateral lower extremities that she had to crawl up the stairs and get into bed. She denies any fevers or chills. No nausea or vomiting. Shefeels a chest tightness as well. She denies diaphoresis, or other symptoms. [facility] Medical History Anxiety COPD (chronic obstructive pulmonary disease) Depression Emphysema lung Fibromyalgia Hypothyroid Tobacco abuse Home Medications buspirone 5 mg tablet 7.5 mg PO TID Mood 05/08/21 [History Last Taken Unknown] fluoxetine 40 mg capsule 40 mg PO DAILY 05/08/21 [History Last Taken Unknown] gabapentin 300 mg capsule 300 mg PO TID 05/08/21 [History Last Taken Unknown] levothyroxine 88 mcg tablet 125 mcg PO DAILY 05/08/21 [History Last Taken Unknown] aspirin 81 mg capsule 81 mg PO DAILY #30 caps 04/05/22 [Rx Last Taken Unknown] cephalexin 500 mg capsule 500 mg PO BID #14 caps 07/13/23 [Rx Last Taken Unknown] Allergy/AdvReac Type Severity Reaction Status Date / Time No Known Allergies Allergy Verified 07/13/23 11:27 Social History household members: family Smoking Status: Current every day smoker tobacco type: cigarettes alcohol intake: never substance use type: does not use ROS ROS ED ROS Narrative Constitutional: No fever, no chills. Generalized weakness HEENT: No sore throat. No neck pain. No loss of vision. No rhinorrhea. Cardiovascular: Positive chest pressure/chest pain. No palpitations. No pedal edema. Respiratory: No cough, no shortness of breath. Abdominal: No abdominal pain. No nausea. No vomiting. Genitourinary: No dysuria. No hematuria. Musculoskeletal: No myalgias. No arthralgias. Neurologic: No headaches. No dizziness. No lightheadedness. Weakness, left-sided numbness of left shoulder. Skin: No rash. No change in color. Psychiatric: No depression. No anxiety. EXAM Physical Exam Narrative Exam Narrative: Afebrile. Vital signs noted. HEENT: Normocephalic. Atraumatic. PERRL, EOMI. Neck soft and supple. No pointtenderness or step off. Cardiovascular: Regular rate and rhythm. No murmurs, rubs, or gallops appreciated. Respiratory: No tachypnea. Lungs clear to auscultation bilaterally. Gastrointestinal: Abdomen soft, nontender, with normoactive bowel sounds. No rebound or guarding. Neurological: Awake. Alert. Nonfocal, nonlateralizing. NIH stroke scale is 0. Skin: No rash. Normal color. No pallor. Musculoskeletal: No pedal edema. Full range of motion extremities. Const Vital Signs: 07/13/23 11:21 07/13/23 11:26 07/13/23 12:14 Temperature 96.3 F L Temperature Source Temporal Pulse Rate 80 Respiratory Rate 13 Respiratory Effort Normal Non-Labored Blood Pressure 164/105 H Blood Pressure Mean 124 Pulse Ox 99 100 Oxygen Delivery Method Room Air Room Air 07/13/23 12:20 07/13/23 13:00 07/13/23 14:00 Temperature Temperature Source Pulse Rate 56 L 58 L 58 L Respiratory Rate 16 16 13 Respiratory Effort Blood Pressure 156/81 H 162/70 H 152/79 H Blood Pressure Mean 106 100 103 Pulse Ox 95 99 98 Oxygen Delivery Method Nasal Cannula Room Air Room Air MDM MDM MDM Narrative Medical decision making narrative: Comprehensive work-up was pursued. I do not feel that she is having a stroke mike NIH stroke scale is 0. Additionally, she went to bed yesterday evening so she is outside the window for tPA if it were actually indicated. She has no deficit. I feel this is more of a generalized weakness along with chest pain. Her chest pain work-up was pursued and her EKG demonstrates normal sinus rhythm at 74 bpm without ectopy or acute ST changes. No STEMI. No significant change from EKG dated April 05, 2022. She was seen ambulating with assistance to the bathroom. I reviewed her laboratory work and she has a normal white count of 6.5, hemoglobin normal at 13, hematocrit 39.7, platelet count normal at 214. Electrolyte panel is grossly unremarkable with normal sodium of 139, potassium 3.9, BUN of 9 and creatinine 1.11 with low anion gap of 4 as glucose is slightlyelevated and appropriate at 114. ALT and AST are normal at 33 and 30 respectively. Initial high-sensitivity troponin is 4 with repeat at 2 hours with a value of 5. This is not a significant delta troponin I do not feel she requires admission and I feel cardiac ischemia has been ruled out by biomarkers. Her urinalysis shows a few white cells at 10-25 and positive nitrites. She will be treated for cystitis with Keflex. Prescription was written and called into her pharmacy. Of significance is her TSH elevated at 204. I do feel that this is the cause of her generalized weakness and malaise. She admits that she has not taken her hypothyroid medication in quite some time. I stressed the importance of taking this and following up with her primary care provider. CT of the brain was obtained and radiology report was reviewed. There is no evidence of acute process. Chest x-ray in 1 view interpreted by myself independently shows no evidence of an acute process, no pneumothorax or pneumonia. I reviewed the radiology report which confirms my independent interpretation. At this point in time, I feel she can be discharged safely homewith follow-up. She does not want to be assigned to observation. I do not feelthat she is in a myxedema coma or anything of that nature that requires admission. She is to take her medication and follow-up with her primary care provider. Return instructions to the emergency department were reviewed. Disposition is discharged home in stable condition. History & Record Review Discussion w/independent historian: Patient Lab Data Attestation: I reviewed the patient's lab results. Labs: Laboratory Results - last 24 hr 07/13/23 07/13/23 07/13/23 11:22 11:36 12:00 WBC 6.5 RBC 4.12 L Hgb 13.0 Hct 39.7 MCV 96.4 MCH 31.6 MCHC 32.7 RDW Std Deviation 51.2 H RDW Coeff of Manuel 14.5 Plt Count 214 MPV 11.8 Immature Gran % (Auto) 1.100 H Neut % (Auto) 51.5 Lymph % (Auto) 37.1 [place] % (Auto) 6.6 Eos % (Auto) 2.0 Baso % (Auto) 1.7 H Absolute Neuts (auto) 3.4 Absolute Lymphs (auto) 2.42 Nucleated RBC % 0 Sodium 139 Potassium 3.9 Chloride 105 Carbon Dioxide 30.0 Anion Gap 4 L BUN 9 Creatinine 1.11 H Estim Creat Clear Calc 56.76 Est GFR (MDRD) Af Amer 67 Est GFR (MDRD) Non-Af 55 L BUN/Creatinine Ratio 8.1 L Glucose 114 H Calcium 8.9 Magnesium 2.2 Total Bilirubin 0.30 AST 33 ALT 30 Alkaline Phosphatase 114 Troponin I High Sens 4 Total Protein 8.2 Albumin 3.8 Globulin 4.4 H Albumin/Globulin Ratio 0.9 TSH 204.00 H Urine Color Yellow Urine Clarity Sl. Cloudy Urine pH 5.0 Ur Specific Lipscomb 1.030 Urine Protein 15 H Urine Glucose (UA) Normal Urine Ketones 5 H Urine Occult Blood 25 H Urine Nitrite Positive H Urine Bilirubin Negative Urine Urobilinogen Normal Ur Leukocyte Esterase 100 H Urine RBC 0 SEEN Urine WBC 10-25 SEEN Ur Squamous Epith Cells 0-5 SEEN Urine Bacteria 2+ Urine Mucus 0 SEEN POC Glucose 100 07/13/23 13:30 WBC RBC Hgb Hct MCV MCH MCHC RDW Std Deviation RDW Coeff of Manuel Plt Count MPV Immature Gran % (Auto) Neut % (Auto) Lymph % (Auto) Tun[place] % (Auto) Eos % (Auto) Baso % (Auto) Absolute Neuts (auto) Absolute Lymphs (auto) Nucleated RBC % Sodium Potassium Chloride Carbon Dioxide Anion Gap BUN Creatinine Estim Creat Clear Calc Est GFR (MDRD) Af Amer Est GFR (MDRD) Non-Af BUN/Creatinine Ratio Glucose Calcium Magnesium Total Bilirubin AST ALT Alkaline Phosphatase Troponin I High Sens 5 Total Protein Albumin Globulin Albumin/Globulin Ratio TSH Urine Color Urine Clarity Urine pH Ur Specific Lipscomb Urine Protein Urine Glucose (UA) Urine Ketones Urine Occult Blood Urine Nitrite Urine Bilirubin Urine Urobilinogen Ur Leukocyte Esterase Urine RBC Urine WBC Ur Squamous Epith Cells Urine Bacteria Urine Mucus POC Glucose Radiography Diagnostic Testing: Clinical Impression(s) from Imaging Studies Brain CT 07/13/23 11:30 IMPRESSION: Normal unenhanced CT scan of the brain. Electronically Signed: Joaquín Bernstein MD at 12:13 EST , Chest X-Ray 07/13/23 11:40 IMPRESSION: Normal x-ray examination of the chest. Electronically Signed: Joaquín Bernstein MD at 11:57 EST , Discharge Plan Triage Chief Complaint: Chest Pain ED Provider: Denis Vaca Dx/Rx/DC Orders Clinical Impression: UTI (urinary tract infection), Generalized weakness, Hypothyroid, Chest pain Instructions: ED Chest Pain, Noncardiac, ED Hypothyroidism, ED Weakness (Uncertain Cause) Prescriptions: New cephalexin 500 mg capsule 500 mg PO BID Qty: 14 0RF No Action fluoxetine 40 mg capsule 40 mg PO DAILY buspirone 5 mg tablet 7.5 mg PO TID levothyroxine 88 mcg tablet 125 mcg PO DAILY Patient Comments: TAKE 1 TABLET BY MOUTH ONCE DAILY IN THE MORNING gabapentin 300 mg capsule 300 mg PO TID aspirin 81 mg capsule 81 mg PO DAILY Qty: 30 1RF Primary Care Provider: POLLY VELASCO Referrals: POLLY VELASCO [Other] Activity Restrictions/Additional Instructions: Make sure you are taking your thyroid medication as previously directed. Take all of your antibiotics. Follow-up with your primary care provider as soon as possible. Disposition Disposition: Home, Self Care What to do if you have Problems For any increased pain, shortness of breath, bleeding, nausea or vomiting, chest pain, or any unexpected problems, contact your Primary Care Provider. Call [facility] ([phone]) or report to the closest Emergency Room. Call 911 if necessary. 07/13/23 1425 <Electronically signed by Denis Vaca MD> Cosigner Signature (if applicable): CC: POLLY VELASCO ~ Signed [facility] Work Phone: [phone] Evaluation + Plan note* Assessment & Plan Note - Polly Velasco CNP - 12/22/2022 11:06 AM EDTAssociated Problem(s): Anxiety disorder Chronic stable. Continue prozac and buspar. [id number] Evaluation + Plan note* Assessment & Plan Note - Polly Velasco CNP - 12/22/2022 11:06 AM EDTAssociated Problem(s): Depression, recurrent (HCC) Chronic stable Continue prozac as ordered Recommended cognitive behavioral therapy Recommended self care-mindfulness meditation, exercise, and adequate sleep. Seek emergent help for any worsening of depression or thoughts of harming self or others. [id number] Miscellaneous Notes* Assessment & Plan Note - Polly Velasco CNP - 12/22/2022 11:06 AM EDTAssociated Problem(s): Anxiety disorder Chronic stable. Continue prozac and buspar. * Assessment & Plan Note - Polly Velasco CNP - 12/22/2022 11:06 AM EDT Associated Problem(s): Depression, recurrent (HCC) Chronic stable Continue prozac as ordered Recommended cognitive behavioral therapy Recommended self care-mindfulness meditation, exercise, and adequate sleep. Seek emergent help for any worsening of depression or thoughts of harming self or others. * Assessment & Plan Note - Polly Velasco CNP - 12/22/2022 11:05 AM EDT Associated Problem(s): Hyperlipidemia Chronic Continue statin * Assessment & Plan Note - Polly Velasco CNP - 12/22/2022 11:04 AM EDT Associated Problem(s): Hypothyroidism, adult Chronic uncontrolled Last TSH completed 09/22/22 was significantly high at 187.00 after she had not been adherent to taking synthroid. Admits to taking synthroid daily over the last 3 months. Will repeat labs today. Continue to take synthroid as ordered and I will notify you if dose needs changed documented in this [id number] Miscellaneous Notes* Assessment & Plan Note - Polly Velasco CNP - 12/22/2022 11:06 AM EDTAssociated Problem(s): Anxiety disorder Chronic stable. Continue prozac and buspar. * Assessment & Plan Note - Polyl Velasco CNP - 12/22/2022 11:06 AM EDT Associated Problem(s): Depression, recurrent (HCC) Chronic stable Continue prozac as ordered Recommended cognitive behavioral therapy Recommended self care-mindfulness meditation, exercise, and adequate sleep. Seek emergent help for any worsening of depression or thoughts of harming self or others. * Assessment & Plan Note - Polly Velasco CNP - 12/22/2022 11:05 AM EDT Associated Problem(s): Hyperlipidemia Chronic Continue statin * Assessment & Plan Note - Polly Velasco CNP - 12/22/2022 11:04 AM EDT Associated Problem(s): Hypothyroidism, adult Chronic uncontrolled Last TSH completed 09/22/22 was significantly high at 187.00 after she had not been adherent to taking synthroid. Admits to taking synthroid daily over the last 3 months. Will repeat labs today. Continue to take synthroid as ordered and I will notify you if dose needs changed documented in this [id number] Evaluation + Plan note* Assessment & Plan Note - Polly Velasco CNP - 12/22/2022 11:05 AM EDT Associated Problem(s): Hyperlipidemia Chronic Continue statin [id number] Evaluation + Plan note* Assessment & Plan Note - Polly Velasco CNP - 12/22/2022 11:04 AM EDTAssociated Problem(s): Hypothyroidism, adult Chronic uncontrolled Last TSH completed 09/22/22 was significantly high at 187.00 after she had not been adherent to taking synthroid. Admits to taking synthroid daily over the last 3 months. Will repeat labs today. Continue to take synthroid as ordered and I will notify you if dose needs changed [id number] History of Present illness Narrative* Polly Velasco CNP - 12/22/2022 10:40 AM EDT [facility] [address] [facility] [address] [facility] [id number] Name: Tish Bae Age: 47 y.o. Sex: [...] feel as if she is doing well andreports she just feels ''blah and not right''. [...] buspar. Still feels blah but relates this tolife changes. She has been otc CBD and feels it is also helping. Sleeping well. Denies any suicidalideations/ homicidal ideations. Is not in counseling at this time Hyperlipidemia- Last lipid panel 09/18/21 and was started on lipitor. Not following a specific diet.Does not exercise. Colon cancer screening-Denies any family [...] History: Procedure Laterality Date BREAST BIOPSY Left 2004 benign BREAST SURGERY FOOT SURGERY HYSTERECTOMY TONSILLECTOMY [...] Sitting, BP Cuff Size: Adult) Pulse 72 Temp98.2 F (36.8 C) (Temporal) Resp 16 Ht [...] previous visit (from the past 336 hour(s)). Polly Velasco CNP 12/22/22 8:48 PM documented in this [id number] History of Present illness Narrative* Polly Velasco CNP - 12/22/2022 10:40 AM EDT [facility] [address] [facility] [address] [facility] [id number] Name: Tish Bae Age: 47 y.o. Sex: [...] feel as if she is doing well andreports she just feels ''blah and not right''. [...] buspar. Still feels blah but relates this tolife changes. She has been otc CBD and feels it is also helping. Sleeping well. Denies any suicidalideations/ homicidal ideations. Is not in counseling at this time Hyperlipidemia- Last lipid panel 09/18/21 and was started on lipitor. Not following a specific diet.Does not exercise. Colon cancer screening-Denies any family [...] Sitting, BP Cuff Size: Adult) Pulse 72 Temp98.2 F (36.8 C) (Temporal) Resp 16 Ht [...] previous visit (from the past 336 hour(s)). Polly Velasco CNP 12/22/22 8:48 PM documented in this [id number] Evaluation + Plan note* Assessment & Plan Note - Polly Velasco CNP - 09/23/2022 5:23 PM EST Associated Problem(s): Hyperlipidemia Start statin [id number] Miscellaneous Notes* Assessment & Plan Note - Polly Velasco CNP - 09/23/2022 5:23 PM ESTAssociated Problem(s): Hyperlipidemia Start statin documented in this [id number] Evaluation + Plan note* Assessment & Plan Note - Polly Velasco CNP - 09/22/2022 11:53 AM EST Associated Problem(s): Anxiety disorder Chronic stable. Continue prozac and buspar. [id number] Evaluation + Plan note* Assessment & Plan Note - Polly Velasco CNP - 09/22/2022 11:53 AM ESTAssociated Problem(s): Depression, recurrent (HCC) Controlled on prozac Continue medication as ordered Recommended cognitive behavioral therapy Recommended self care-mindfulness meditation, exercise, and adequate sleep. Seek emergent help for any worsening of depression or thoughts of harming self or others. [id number] Miscellaneous Notes* Assessment & Plan Note - Polly Velasco CNP - 09/22/2022 11:53 AM ESTAssociated Problem(s): Anxiety disorder Chronic stable. Continue prozac and buspar. * Assessment & Plan Note - Polly Velasco CNP - 09/22/2022 11:53 AM EST Associated Problem(s): Depression, recurrent (HCC) Controlled on prozac Continue medication as ordered Recommended cognitive behavioral therapy Recommended self care-mindfulness meditation, exercise, and adequate sleep. Seek emergent help for any worsening of depression or thoughts of harming self or others. * Assessment & Plan Note - Polly Velasco CNP - 09/22/2022 11:52 AM EST Associated Problem(s): Hyperlipidemia Has refused statin therapy in the past. Will repeat lipid panel today. * Assessment & Plan Note - Polly Velasco CNP - 09/22/2022 11:51 AM EST Associated Problem(s): Hypothyroidism, adult Last TSH on 12/21/21 was high at 15.89. She has not been taking synthroid so will likely be elevatedtoday as well. Will restart synthroid at 125 mcg daily as this was her previous dose. Spent time discussing medication compliance. Will repeat TSH again at follow up in 3 months documented in this [id number] Evaluation + Plan note* Assessment & Plan Note - Polly Velasco CNP - 09/22/2022 11:52 AM EST Associated Problem(s): Hyperlipidemia Has refused statin therapy in the past. Will repeat lipid panel today. [id number] Evaluation + Plan note* Assessment & Plan Note - Polly Velasco CNP - 09/22/2022 11:51 AM ESTAssociated Problem(s): Hypothyroidism, adult Last TSH on 12/21/21 was high at 15.89. She has not been taking synthroid so will likely be elevatedtoday as well. Will restart synthroid at 125 mcg daily as this was her previous dose. Spent time discussing medication compliance. Will repeat TSH again at follow up in 3 months [id number] Instructions* Patient Instructions* Polly Velasco CNP - 09/22/2022 11:21 AM EST It is time to get your Mammogram done. Please call and schedule your appointment. [facility] ( [facility]) [address] [place] [phone] * Attachments The following attachments cannot be sent through Care Everywhere. * Depression: Self Care (Nigerian) documented in this [id number] History of Present illness Narrative* Polly Velasco CNP - 09/22/2022 10:40 AM EST [facility] [address] [facility] [phone] Name: Tish Bae Age: 47 y.o. Sex: female : 1975 Chief Complaint Patient presents with Establish Care Thyroid Problem Gap Closure (Health Maintenance) Colorectal Cancer Screening/Monitoring Never done Mammogram due on 03/23/2018 Pap Smear due on 03/18/2020 Tish Bae is a 47 y.o. female being seen on 09/22/22 presenting with Establish Care, Thyroid Problem, and Gap Closure (Health Maintenance) (Colorectal Cancer Screening/Monitoring Never done/Mammogram due on 03/23/2018 /Pap Smear due on 03/18/2020 ) . History of Present Illness: Here for chronic care management Hypothyroidism- Last TSH completed 12/21/21 was high at 15.89. Has not taken medication for several months. States I was in a funk and was not taking medication. Does feel like her thyroid is off.Fatigue and having heat/cold intolerance. Depression and anxiety- [...] light-headedness. Psychiatric/Behavioral: Negative for dysphoric mood, hallucinations, self- injury, sleep disturbanceand suicidal ideas. The patient is nervous/anxious. Physical [...] Sitting, BP Cuff Size: Adult) Pulse 72 Temp98.3 F (36.8 C) (Temporal) Resp 18 Ht [...] been taking synthroid so will likely be elevatedtoday as well. Will restart synthroid at 125 [...] previous visit (from the past 336 hour(s)). Polly Velasco CNP 09/22/22 9:17 AM Depression Screening [...] made it for you to do your work,take care of things at home, or get along with other people? - Very difficult documented in this encounterOhioHealthDischarge summary Author Cassius Owens [facility] Note Date/Time February 18, 2025 4:18 am [facility] Medical Records Department [address] [place] [address] Emergency Department Summary 02/18/25 MR#: [id number] Acct: [id number] Name: TISH BAE Rep #:[id number] : 1975 49 From: Cassius patelett PCP: Polly Velasco, CHEMICAL PLANT MANAGER-C Status:REG E R Location: ED HPI History of Present Illness Chief Complaint: Headache Narrative Narrative: Chief complaint and HPI: Headache. 49-year-old female with past medical historyof migraines, HLD, depression, hypothyroidism presents for evaluation of headache. Patient states she developed a headache yesterday morning that has progressively worsened. Associated symptoms are photophobia, phonophobia, nausea, vomiting. Patient states her headache is similar to previous migraines. She denies any fever, chills, URI symptoms, vision changes, hearing changes, neck pain, syncope, neurological deficit, numbness/tingling, weakness, chest pain, shortness of breath. Denies any injury or trauma. Review of systems: See HPI Medications: As listed on the chart Allergies: As listed on the chart PFSH: Per chart Vital signs: As listed on the chart. Reviewed. Physical exam: Gen: A&O x3, sitting in a dark room with a wash rag over her eyes Head: Normocephalic, atraumatic Eyes: No sclera icterus, conjunctiva clear, PERRL, EOMI ENT: TMs clear BL, moist mucous membranes, posterior oropharynx unremarkable, uvula midline Neck: Trachea midline, No JVD, Full ROM CV: RRR, no murmurs, no peripheral edema Resp: Lungs CTA BL, no w/r/c GI: Abd soft, non-distended, non-tender, no r/r/g Musc: Full ROM, no deformity Skin: Warm, dry, no rash Neuro: Alert, oriented, grossly intact, sensation intact Psych: Cooperative, appropriate mood and affect [facility] Medical History Emphysema lung COPD (chronic obstructive pulmonary disease) Tobacco abuse Hypothyroid Fibromyalgia Depression Anxiety Home Medications ?Medication ?Instructions ?Recorded ?Last Taken ?Type buspirone 5 mg tablet 7.5 mg PO BID Mood 05/08/21 Unknown History atorvastatin 20 mg tablet 20 mg PO QHS 07/05/24 Unknow n History fluoxetine 20 mg capsule 20 mg PO DAILY 07/05/24 Unkn own History levothyroxine 125 mcg tablet 125 mcg PO DAILY 07/05/24 Unknown History ondansetron 4 mg disintegrating 4 mg PO Q8H PRN PRN Na usea #10 tabs 02/18/25 Unknown Rx tablet pregabalin 75 mg capsule 75 mg PO BID 02/18/25 Unknow n History Allergy/AdvReac Type Severity Reaction Status Date / Time No Known Allergies Allergy Verified 02/18/25 03:04 Surgical History History of hysterectomy Social History household members: family Smoking Status: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
== END 2025-02-18 04:21 | disposition home or self-care (01) ==
PROVIDERS: Emergency Provider Surgery; PCP Nurse Practitioner Family; Visit Provider Surgery
DX: G43.909 Migraine, unspecified, not intractable, without status migrainosus (principal); J44.9 Chronic obstructive pulmonary disease, unspecified; F17.210 Nicotine dependence, cigarettes, uncomplicated; E78.5 Hyperlipidemia, unspecified; F41.9 Anxiety disorder, unspecified; F32.A Depression, unspecified; Z79.899 Other long term (current) drug therapy; E03.9 Hypothyroidism, unspecified
CPT/HCPCS: 96361; 96374; 96375; 99285; A4216